=== PATIENT | male | born 1945 | race Caucasian/White ===

== ENCOUNTER 2017-09-14 08:37 | Outpatient (CLI) | payer OTHER, MEDICARE ==
[~2017-09-14 08:37] MED LIST: ASPI-611 PO; CYAN10006 IM; DIAZ5TAB PO; FURO80TA87 PO; MULT-1085 PO; NORCO10T PO; OLME5TAB3 PO; OMEP-84 PO; POTA20TA10 PO; PRED20TA PO; PROP225C9 PO; TAM75C PO; [UNRECOGNIZED DRUG - CODE] TP
== END 2017-09-14 23:59 | disposition home or self-care (01) ==
LOC: 64 CT 08:37
PROVIDERS: ATTEND Family Medicine
DX: J43.9 Emphysema, unspecified (principal); R91.1 Solitary pulmonary nodule
CPT/HCPCS: 71250

== ENCOUNTER 2017-10-19 04:23 | Inpatient (IN) | payer OTHER, MEDICARE ==
[~2017-10-19] VITALS: Ht 180.3 cm; Wt 80.5 kg
[2017-10-19] VITALS (19 sets, daily range): BP systolic 72–137; BP diastolic 47–96
[2017-10-19] MEDS ORDERED: ipratropium/albuterol 3ml nebule NEB ONE (04:35)
[2017-10-19] MEDS ORDERED: normal saline 1000ML IV soln IVB ONE ×2 (04:35→05:25)
[2017-10-19] MEDS ORDERED: methylPREDNISolone sod succ 125mg/2ml vial IV ONE (04:35)
[2017-10-19 05:21] LABS: ABG OXYGEN SATURATION 97.5 % (95-98); FCOHb 0.1 % (0.5-1.5); FLOW 6 L/min; FMetHb 0.3 % (0.3-1.12); FO2Hb 97.1 % (94-100); TOTAL HEMOGLOBIN 13.6 G/dl (14.0-18.0)
[2017-10-19 05:26] LABS: BASOPHILS # (AUTO) 0.1 X10'3 (0-0.2); BASOPHILS % (AUTO) 0.9 % (0-1); EOSINOPHILS # (AUTO) 0.3 X10'3 (0-0.9); EOSINOPHILS % (AUTO) 2.1 % (0-6); HEMATOCRIT 39.4 % (42.0-52.0); HEMOGLOBIN 13.6 g/dl (14.0-17.9); LYMPHOCYTES % (AUTO) 18.6 % (21-51); MEAN CORPUSCULAR HEMOGLOBIN 33.1 PG (27.0-31.0); MEAN CORPUSCULAR HGB CONC 34.6 % (33.0-36.5); MEAN CORPUSCULAR VOLUME 95.5 FL (78-98); MEAN PLATELET VOLUME 7.8 FL (7.4-10.4); MONOCYTES # (AUTO) 1.8 X10'3 (0-0.9); MONOCYTES % (AUTO) 11.1 % (2-12); NEUTROPHILS # (AUTO) 10.7 X10'3 (1.8-7.7); NEUTROPHILS % (AUTO) 67.3 % (42-75); PLATELET COUNT 180 X10'3 (140-440); RED BLOOD COUNT 4.12 X10'6 (4.70-6.10); RED CELL DISTRIBUTION WIDTH 13.9 % (11.5-14.5); WHITE BLOOD COUNT 15.9 X10'3 (4.5-11.0)
[2017-10-19 05:35] LABS: PARTIAL THROMBOPLASTIN TIME 33 SECONDS (22-32); PROTHROMBIN TIME 10.3 SECONDS (9.0-12.0)
[2017-10-19 05:46] LABS: ALANINE AMINOTRANSFERASE 57 U/L (12-78); ALBUMIN 4.1 G/DL (3.4-5.0); ALBUMIN/GLOBULIN RATIO 1.3 (1.1-1.5); ALKALINE PHOSPHATASE 99 IU/L (46-116); ASPARTATE AMINO TRANSFERASE 28 U/L (10-37); BILIRUBIN,TOTAL 0.3 MG/DL (0.1-1.0); BLOOD UREA NITROGEN 96 MG/DL (7-18); BUN/CREATININE RATIO 11.1 (5.4-32.0); CALCIUM 7.7 MG/DL (8.5-10.1); CHLORIDE 99 MMOL/L (99-107); CREATININE 8.63 MG/DL (0.60-1.10); GLUCOSE 96 MG/DL (70-104); MAGNESIUM 1.4 MG/DL (1.5-2.4); PHOSPHORUS 8.2 MG/DL (2.3-4.5); SODIUM 131 MMOL/L (135-145); TOTAL PROTEIN 7.2 G/DL (6.4-8.2); eGFR 6 ML/MIN
[2017-10-19 06:09] LABS: POTASSIUM 2.9 MMOL/L (3.5-5.1)
[2017-10-19 06:10] LABS: ANION GAP 27 (8-16); TOTAL CARBON DIOXIDE < 5 MMOL/L (24-32)
[2017-10-19] MEDS ORDERED: magnesium 2GM in 50ml NS 50 ML IV ONE (06:25)
[2017-10-19] MEDS: potassium 10mEq/100ml NS w/LIDOcaine (10mg/bag) IV SCH ×2 (06:25→07:25)
[2017-10-19] MEDS ORDERED: ipratropium/albuterol 3ml nebule NEB PRN (06:55)
[2017-10-19] MEDS ORDERED: acetaminophen 325mg tablet PO PRN ×4 (06:55→07:25)
[2017-10-19] MEDS ORDERED: magnesium 4gm in 100ml NS 100 ML IV PRN (06:55)
[2017-10-19] MEDS ORDERED: ondansetron/PF 4mg/2ml inj IV PRN ×2 (06:55→07:25)
[2017-10-19] MEDS ORDERED: potassium Cl 20 mEq SR tablet PO PRN ×2 (06:55)
[2017-10-19] MEDS: K, MAG and/or Phos replacement - Verify level? MC SCH ×2 (06:55→08:00)
[2017-10-19] MEDS ORDERED: magnesium Cl slow-release 64mg tablet PO PRN (06:55)
[2017-10-19] MEDS ORDERED: magnesium 2GM in 50ml NS 50 ML IV PRN (06:55)
[2017-10-19 07:09] LABS: CREATINE KINASE 126 U/L (39-308)
[2017-10-19] MEDS ORDERED: sodium bicarbonate (8.4%) 1 mEq/ml syringe IV ONE ×2 (07:10)
[2017-10-19] MEDS ORDERED: vancomycin/NS 1 GM ADD-VANTAGE 250 ML IV ONE (07:10)
[2017-10-19] MEDS ORDERED: aztreonam inj. 2,000 MG in dextrose 5%-water 100 ML IV ONE (07:10)
[2017-10-19] MEDS ORDERED: morphine 4 MG/ML inj SYRINge IV PRN ×2 (07:25)
[2017-10-19] MEDS: POTASSIUM CL IV SCH ×3 (07:26→16:24)
[2017-10-19] MEDS: [UNRECOGNIZED DRUG - OTHER] IV SCH ×3 (07:26→16:24)
[2017-10-19] MEDS: SODIUM BICARBONATE IV SCH ×3 (07:26→16:24)
[2017-10-19] MEDS: pantoprazole 40 MG vial IV SCH (08:00)
[2017-10-19] MEDS ORDERED: pantoprazole 40 MG vial IV SCH (08:00)
[2017-10-19] MEDS: aztreonam inj. 500 MG in normal saline 100ml IV soln 100 ML IV SCH ×2 (08:00→16:00)
[2017-10-19 08:25] LABS: OXYGEN SATURATION (MIXED VEN) 71.4 % (60-80); PO2 MIXED VENOUS (TEMP COR) 34.3 mmHg (35-46)
[2017-10-19 09:06] LABS: PLATELET COUNT 147 X10'3 (140-440)
[2017-10-19] MEDS ORDERED: potassium Cl 20 mEq/100mL bag IV PRN (09:10)
[2017-10-19 09:16] LABS: AMYLASE 273 U/L (25-115)
[2017-10-19] MEDS ORDERED: potassium Cl 20mEq/100mL bag 100 ML IV ONE (09:16)
[2017-10-19 09:27] LABS: LIPASE 4756 U/L (73-393)
[2017-10-19] MEDS: potassium Cl 20mEq/100mL bag 100 ML IV PRN ×6 (09:29→18:01)
[2017-10-19 09:32] LABS: D-DIMER 2.09 MG/L FEU (0-0.50)
[2017-10-19 09:34] LABS: PARTIAL THROMBOPLASTIN TIME 29 SECONDS (22-32); PROTHROMBIN TIME 10.4 SECONDS (9.0-12.0)
[2017-10-19 09:51] LABS: C DIFF ANTIGEN NEGATIVE (NEGATIVE); C DIFF SPECIMEN=DIARRHEA? ACCEPTABLE; C DIFFICILE TOXINS A&B NEGATIVE (Neg)
[2017-10-19] MEDS: metroNIDAZOLE-Flagyl 500mg/NS 100 ML IV SCH ×2 (11:03→19:58)
[2017-10-19 11:09] LABS: CREATINE KINASE 37 U/L (39-308)
[2017-10-19] MEDS ORDERED: propofol 1000mg/100ml bottle 100 ML IV ONE (11:18)
[2017-10-19 12:10] LABS: ABG BASE EXCESS -21.2 mmol/L (-2.0-3.0); ABG HCO3 6.7 mmol/L (22.0-26.0); ABG OXYGEN SATURATION 97.8 % (95-98); ABG PCO2 (T) 21.8 mmHg (35.0-48.0); ABG PH (T) 7.104 (7.350-7.450); ABG PO2 (T) 148.2 mmHg (83-108); ALLEN'S TEST Positive; FCOHb 0.3 % (0.5-1.5); FMetHb 0.3 % (0.3-1.12); FO2Hb 97.2 % (94-100); MINUTE VOLUME 24 L/min; PEEP 5 cm H2O; RESPIRATORY RATE 18 b/min; RESPIRATORY RATE (OBSERVED) 35 b/min; TOTAL HEMOGLOBIN 11.3 G/dl (14.0-18.0)
[2017-10-19 12:43] LABS: SODIUM,URINE RANDOM < 15 MEQ/L; TOTAL PROTEIN,URINE RANDOM 101.5 MG/DL
[2017-10-19 13:06] LABS: OXYGEN SATURATION (MIXED VEN) 83.6 % (60-80); PO2 MIXED VENOUS (TEMP COR) 48.8 mmHg (35-46)
[2017-10-19] MEDS ORDERED: furosemide 10 MG/1 ML 10ml inj IV ONE (13:50)
[2017-10-19 14:12] LABS: ALBUMIN 3.4 G/DL (3.4-5.0); ANION GAP 26 (8-16); BLOOD UREA NITROGEN 92 MG/DL (7-18); BUN/CREATININE RATIO 12.5 (5.4-32.0); CALCIUM 7.2 MG/DL (8.5-10.1); CHLORIDE 105 MMOL/L (99-107); CREATININE 7.37 MG/DL (0.60-1.10); GLUCOSE 141 MG/DL (70-104); SODIUM 138 MMOL/L (135-145); eGFR 7 ML/MIN
[2017-10-19 14:15] LABS: POTASSIUM 2.9 MMOL/L (3.5-5.1)
[2017-10-19 14:16] LABS: TOTAL CARBON DIOXIDE 6.8 MMOL/L (24-32)
[2017-10-19 14:31] LABS: BASOPHILS % (AUTO) 0 % (0-1); EOSINOPHILS % (AUTO) 0 % (0-6); HEMATOCRIT 29.1 % (42.0-52.0); LYMPHOCYTES # (AUTO) 0.2 X10'3 (1.1-4.8); LYMPHOCYTES % (AUTO) 2.2 % (21-51); MEAN CORPUSCULAR HEMOGLOBIN 32.4 PG (27.0-31.0); MEAN CORPUSCULAR HGB CONC 34.5 % (33.0-36.5); MEAN CORPUSCULAR VOLUME 93.9 FL (78-98); MEAN PLATELET VOLUME 7.5 FL (7.4-10.4); MONOCYTES # (AUTO) 0.2 X10'3 (0-0.9); MONOCYTES % (AUTO) 1.9 % (2-12); NEUTROPHILS # (AUTO) 8.9 X10'3 (1.8-7.7); NEUTROPHILS % (AUTO) 95.9 % (42-75); PLATELET COUNT 131 X10'3 (140-440); RED CELL DISTRIBUTION WIDTH 14.3 % (11.5-14.5); WHITE BLOOD COUNT 9.3 X10'3 (4.5-11.0)
[2017-10-19 14:49] LABS: PARTIAL THROMBOPLASTIN TIME 28 SECONDS (22-32); PROTHROMBIN TIME 10.1 SECONDS (9.0-12.0)
[2017-10-19] MEDS: NORepinephrine 8mg/ 250ml NS 250 ML IV SCH (14:55)
[2017-10-19 14:56] LABS: ALANINE AMINOTRANSFERASE 40 U/L (12-78); ALBUMIN 2.7 G/DL (3.4-5.0); ALBUMIN/GLOBULIN RATIO 1.1 (1.1-1.5); ALKALINE PHOSPHATASE 69 IU/L (46-116); ANION GAP 22 (8-16); ASPARTATE AMINO TRANSFERASE 23 U/L (10-37); BILIRUBIN,TOTAL 0.3 MG/DL (0.1-1.0); BLOOD UREA NITROGEN 79 MG/DL (7-18); BUN/CREATININE RATIO 13.6 (5.4-32.0); CALCIUM 6.8 MG/DL (8.5-10.1); CHLORIDE 104 MMOL/L (99-107); CREATININE 5.79 MG/DL (0.60-1.10); GLUCOSE 369 MG/DL (70-104); POTASSIUM 3.7 MMOL/L (3.5-5.1); SODIUM 136 MMOL/L (135-145); TOTAL PROTEIN 5.1 G/DL (6.4-8.2); TROPONIN I < 0.04 NG/ML (0.0-0.05); eGFR 10 ML/MIN
[2017-10-19 15:00] LABS: TOTAL CARBON DIOXIDE 9.7 MMOL/L (24-32)
[2017-10-19] MEDS: hydrocortisone sod succ/PF 100mg/2ml inj. IV SCH ×2 (15:21→19:58)
[2017-10-19 15:32] LABS: MAGNESIUM 3.6 MG/DL (1.5-2.4)
[2017-10-19 15:58] LABS: ANISOCYTOSIS 1+; PLATELET ESTIMATE DECREASED; TOTAL CELLS COUNTED 100
[2017-10-19] MEDS: FENTANYL-0.9 % NACL/PF 100 ML IV PRN ×2 (16:35→23:12)
[2017-10-19 16:45] LABS: ABG BASE EXCESS -15.4 mmol/L (-2.0-3.0); ABG OXYGEN SATURATION 97.8 % (95-98); ABG PCO2 (T) 18.9 mmHg (35.0-48.0); ABG PH (T) 7.296 (7.350-7.450); ABG PO2 (T) 150.2 mmHg (83-108); ALLEN'S TEST Positive; FCOHb 0.2 % (0.5-1.5); FMetHb 0.3 % (0.3-1.12); FO2Hb 97.3 % (94-100); MINUTE VOLUME 17 L/min; PEEP 5 cm H2O; RESPIRATORY RATE 18 b/min; RESPIRATORY RATE (OBSERVED) 19 b/min; TOTAL HEMOGLOBIN 11.3 G/dl (14.0-18.0)
[2017-10-19] MEDS ORDERED: dextrose 50%-water 50ml dispensing syringe IV PRN ×2 (17:00)
[2017-10-19] MEDS ORDERED: dextrose ORAL solution 15 GM/59 ML bottle PO PRN ×2 (17:00)
[2017-10-19] MEDS ORDERED: MESSAGE TO PHARMACY PO ONE (17:00)
[2017-10-19] MEDS ORDERED: glucagon, human recombinant 1mg kit SUBCUT PRN (17:00)
[2017-10-19] MEDS: propofol 1000mg/100ml bottle 100 ML IV PRN (18:08)
[2017-10-19] MEDS: ipratropium/albuterol 3ml nebule NEB SCH ×2 (19:16→23:42)
[2017-10-19 19:45] LABS: OXYGEN SATURATION (MIXED VEN) 90.1 % (60-80); PO2 MIXED VENOUS (TEMP COR) 51.6 mmHg (35-46)
[2017-10-19 19:45] LABS: BASOPHILS % (AUTO) 0 % (0-1); EOSINOPHILS # (AUTO) 0.2 X10'3 (0-0.9); EOSINOPHILS % (AUTO) 1.5 % (0-6); HEMATOCRIT 32.3 % (42.0-52.0); LYMPHOCYTES # (AUTO) 0.2 X10'3 (1.1-4.8); LYMPHOCYTES % (AUTO) 2.1 % (21-51); MEAN CORPUSCULAR HEMOGLOBIN 32.5 PG (27.0-31.0); MEAN CORPUSCULAR HGB CONC 34.1 % (33.0-36.5); MEAN CORPUSCULAR VOLUME 95.3 FL (78-98); MEAN PLATELET VOLUME 7.4 FL (7.4-10.4); MONOCYTES # (AUTO) 0.6 X10'3 (0-0.9); MONOCYTES % (AUTO) 5.2 % (2-12); NEUTROPHILS % (AUTO) 91.2 % (42-75); PLATELET COUNT 160 X10'3 (140-440); RED BLOOD COUNT 3.39 X10'6 (4.70-6.10); RED CELL DISTRIBUTION WIDTH 14.1 % (11.5-14.5)
[2017-10-19 19:58] LABS: PARTIAL THROMBOPLASTIN TIME 27 SECONDS (22-32); PROTHROMBIN TIME 9.9 SECONDS (9.0-12.0)
[2017-10-19 20:03] LABS: ALANINE AMINOTRANSFERASE 42 U/L (12-78); ALBUMIN/GLOBULIN RATIO 1.2 (1.1-1.5); ALKALINE PHOSPHATASE 74 IU/L (46-116); ANION GAP 20 (8-16); ASPARTATE AMINO TRANSFERASE 21 U/L (10-37); BILIRUBIN,TOTAL 0.4 MG/DL (0.1-1.0); BLOOD UREA NITROGEN 72 MG/DL (7-18); BUN/CREATININE RATIO 15.4 (5.4-32.0); CALCIUM 7.1 MG/DL (8.5-10.1); CHLORIDE 103 MMOL/L (99-107); CREATININE 4.67 MG/DL (0.60-1.10); MAGNESIUM 2.8 MG/DL (1.5-2.4); SODIUM 138 MMOL/L (135-145); TOTAL CARBON DIOXIDE 15.2 MMOL/L (24-32); TOTAL PROTEIN 5.6 G/DL (6.4-8.2); TROPONIN I < 0.04 NG/ML (0.0-0.05); eGFR 12 ML/MIN
[2017-10-19 20:14] LABS: GLUCOSE 457 MG/DL (70-104)
[2017-10-19] MEDS: insulin Lispro (HumaLOG) vial - multi-dose SQ SCH (20:35)
[2017-10-19] MEDS: insulin glargine (Lantus) pen - multi-dose SQ SCH (20:37)
[2017-10-19] MEDS: potassium Cl 40MEQ/250ML bag 250 ML IV PRN ×2 (20:52→22:57)
[2017-10-20] VITALS (24 sets, daily range): BP systolic 97–136; BP diastolic 50–72
[2017-10-20] MEDS: aztreonam inj. 500 MG in normal saline 100ml IV soln 100 ML IV SCH ×3 (00:11→16:00)
[2017-10-20] MEDS: NORepinephrine 8mg/ 250ml NS 250 ML IV SCH ×2 (00:12→11:45)
[2017-10-20 00:25] LABS: ABG BASE EXCESS -4.6 mmol/L (-2.0-3.0); ABG HCO3 17.7 mmol/L (22.0-26.0); ABG OXYGEN SATURATION 97.2 % (95-98); ABG PH (T) 7.483 (7.350-7.450); ABG PO2 (T) 120.9 mmHg (83-108); FCOHb 0.2 % (0.5-1.5); FMetHb 0.3 % (0.3-1.12); FO2Hb 96.7 % (94-100); MINUTE VOLUME 14 L/min; PATIENT TEMPERATURE 36.3; PEEP 5 cm H2O; RESPIRATORY RATE 18 b/min; RESPIRATORY RATE (OBSERVED) 20 b/min; TIDAL VOLUME 500 mL; TOTAL HEMOGLOBIN 11.1 G/dl (14.0-18.0)
[2017-10-20] MEDS: hydrocortisone sod succ/PF 100mg/2ml inj. IV SCH ×4 (02:02→20:31)
[2017-10-20 02:23] LABS: BASOPHILS % (AUTO) 0.2 % (0-1); EOSINOPHILS # (AUTO) 0.1 X10'3 (0-0.9); EOSINOPHILS % (AUTO) 0.7 % (0-6); HEMATOCRIT 29.7 % (42.0-52.0); HEMOGLOBIN 10.4 g/dl (14.0-17.9); LYMPHOCYTES # (AUTO) 0.2 X10'3 (1.1-4.8); LYMPHOCYTES % (AUTO) 1.5 % (21-51); MEAN CORPUSCULAR VOLUME 94.1 FL (78-98); MEAN PLATELET VOLUME 7.7 FL (7.4-10.4); MONOCYTES # (AUTO) 1.4 X10'3 (0-0.9); MONOCYTES % (AUTO) 11.3 % (2-12); NEUTROPHILS # (AUTO) 10.7 X10'3 (1.8-7.7); NEUTROPHILS % (AUTO) 86.3 % (42-75); PLATELET COUNT 162 X10'3 (140-440); RED BLOOD COUNT 3.15 X10'6 (4.70-6.10); RED CELL DISTRIBUTION WIDTH 14.1 % (11.5-14.5); WHITE BLOOD COUNT 12.4 X10'3 (4.5-11.0)
[2017-10-20] MEDS: insulin Lispro (HumaLOG) vial - multi-dose SQ SCH ×3 (02:24→20:36)
[2017-10-20 02:28] LABS: PARTIAL THROMBOPLASTIN TIME 26 SECONDS (22-32); PROTHROMBIN TIME 10.8 SECONDS (9.0-12.0)
[2017-10-20 02:40] LABS: ALANINE AMINOTRANSFERASE 39 U/L (12-78); ALBUMIN 2.7 G/DL (3.4-5.0); ALKALINE PHOSPHATASE 68 IU/L (46-116); ANION GAP 16 (8-16); ASPARTATE AMINO TRANSFERASE 20 U/L (10-37); BILIRUBIN,TOTAL 0.3 MG/DL (0.1-1.0); BLOOD UREA NITROGEN 60 MG/DL (7-18); BUN/CREATININE RATIO 16.3 (5.4-32.0); CHLORIDE 108 MMOL/L (99-107); CREATININE 3.69 MG/DL (0.60-1.10); GLUCOSE 383 MG/DL (70-104); SODIUM 145 MMOL/L (135-145); TOTAL CARBON DIOXIDE 20.8 MMOL/L (24-32); TOTAL PROTEIN 5.4 G/DL (6.4-8.2); TROPONIN I 0.04 NG/ML (0.0-0.05); eGFR 16 ML/MIN
[2017-10-20] MEDS: VANCOMYCIN LEVEL IV SCH (03:00)
[2017-10-20 03:01] LABS: POTASSIUM 2.9 MMOL/L (3.5-5.1)
[2017-10-20] MEDS: ipratropium/albuterol 3ml nebule NEB SCH ×6 (03:01→23:14)
[2017-10-20] MEDS: SODIUM BICARBONATE IV SCH ×3 (03:17→23:10)
[2017-10-20] MEDS: [UNRECOGNIZED DRUG - OTHER] IV SCH ×3 (03:17→23:10)
[2017-10-20] MEDS: POTASSIUM CL IV SCH ×3 (03:17→23:10)
[2017-10-20] MEDS: propofol 1000mg/100ml bottle 100 ML IV PRN ×2 (03:18→07:38)
[2017-10-20 03:20] LABS: OXYGEN SATURATION (MIXED VEN) 85.4 % (60-80); PO2 MIXED VENOUS (TEMP COR) 43.5 mmHg (35-46)
[2017-10-20 03:27] LABS: BURR CELLS 2+; ELLIPTOCYTES 2+; PLATELET ESTIMATE NORMAL; TOTAL CELLS COUNTED 100
[2017-10-20 03:31] LABS: ABG BASE EXCESS -3.4 mmol/L (-2.0-3.0); ABG HCO3 19.7 mmol/L (22.0-26.0); ABG OXYGEN SATURATION 97.2 % (95-98); ABG PCO2 (T) 28.5 mmHg (35.0-48.0); ABG PH (T) 7.456 (7.350-7.450); ABG PO2 (T) 112.2 mmHg (83-108); FCOHb 0.2 % (0.5-1.5); FMetHb 0.3 % (0.3-1.12); FO2Hb 96.7 % (94-100); MINUTE VOLUME 10 L/min; PATIENT TEMPERATURE 36.5; PEEP 5 cm H2O; RESPIRATORY RATE 14 b/min; RESPIRATORY RATE (OBSERVED) 16 b/min; TIDAL VOLUME 500 mL; TOTAL HEMOGLOBIN 10.9 G/dl (14.0-18.0)
[2017-10-20 03:31] LABS: ELLIPTOCYTES 1+; LARGE PLATELETS FEW; PLATELET ESTIMATE NORMAL; TOTAL CELLS COUNTED 100
[2017-10-20] MEDS ORDERED: potassium Cl 40MEQ/250ML bag 500 ML IV ONE (03:41)
[2017-10-20] MEDS: potassium Cl 40MEQ/250ML bag 250 ML IV PRN ×2 (03:57→06:10)
[2017-10-20] MEDS: FENTANYL-0.9 % NACL/PF 100 ML IV PRN ×4 (05:30→22:27)
[2017-10-20] MEDS: midazolam 100mg in NS 100ml 100 ML IV PRN (06:54)
[2017-10-20] MEDS ORDERED: vancomycin/NS 1 GM ADD-VANTAGE 250 ML IV PRN (07:00)
[2017-10-20] MEDS: pantoprazole 40 MG vial IV SCH (07:12)
[2017-10-20] MEDS: metroNIDAZOLE-Flagyl 500mg/NS 100 ML IV SCH ×2 (07:13→20:31)
[2017-10-20 08:14] LABS: BASOPHILS % (AUTO) 0 % (0-1); EOSINOPHILS # (AUTO) 0.2 X10'3 (0-0.9); EOSINOPHILS % (AUTO) 1.7 % (0-6); HEMATOCRIT 27.9 % (42.0-52.0); HEMOGLOBIN 9.7 g/dl (14.0-17.9); LYMPHOCYTES # (AUTO) 0.2 X10'3 (1.1-4.8); MEAN CORPUSCULAR VOLUME 94.4 FL (78-98); MEAN PLATELET VOLUME 7.4 FL (7.4-10.4); MONOCYTES # (AUTO) 1.3 X10'3 (0-0.9); MONOCYTES % (AUTO) 10.7 % (2-12); NEUTROPHILS # (AUTO) 10.1 X10'3 (1.8-7.7); NEUTROPHILS % (AUTO) 85.6 % (42-75); PLATELET COUNT 153 X10'3 (140-440); RED BLOOD COUNT 2.95 X10'6 (4.70-6.10); RED CELL DISTRIBUTION WIDTH 14.1 % (11.5-14.5); WHITE BLOOD COUNT 11.8 X10'3 (4.5-11.0)
[2017-10-20 08:23] LABS: INR 1.1 INR; PARTIAL THROMBOPLASTIN TIME 25 SECONDS (22-32); PROTHROMBIN TIME 11.1 SECONDS (9.0-12.0)
[2017-10-20 08:31] LABS: ALANINE AMINOTRANSFERASE 28 U/L (12-78); ALBUMIN 2.6 G/DL (3.4-5.0); ALKALINE PHOSPHATASE 64 IU/L (46-116); ANION GAP 12 (8-16); ASPARTATE AMINO TRANSFERASE 22 U/L (10-37); BILIRUBIN,TOTAL 0.3 MG/DL (0.1-1.0); BLOOD UREA NITROGEN 49 MG/DL (7-18); BUN/CREATININE RATIO 17.6 (5.4-32.0); CALCIUM 7.1 MG/DL (8.5-10.1); CHLORIDE 112 MMOL/L (99-107); CREATININE 2.78 MG/DL (0.60-1.10); GLUCOSE 283 MG/DL (70-104); POTASSIUM 3.4 MMOL/L (3.5-5.1); SODIUM 149 MMOL/L (135-145); TOTAL CARBON DIOXIDE 24.9 MMOL/L (24-32); TOTAL PROTEIN 5.2 G/DL (6.4-8.2); TROPONIN I 0.05 NG/ML (0.0-0.05); eGFR 23 ML/MIN
[2017-10-20] MEDS: K, MAG and/or Phos replacement - Verify level? MC SCH (08:35)
[2017-10-20 08:55] LABS: TOTAL CELLS COUNTED 100
[2017-10-20 08:58] LABS: PLATELET ESTIMATE NORMAL; POIKILOCYTOSIS 1+
[2017-10-20 09:00] LABS: ELLIPTOCYTES 1+
[2017-10-20] MEDS: potassium Cl 40MEQ/250ML bag 250 ML IV SCH (09:50)
[2017-10-20] MEDS: sodium chloride 0.45% 1,000 ML IV SCH ×3 (09:50→20:32)
[2017-10-20] MEDS ORDERED: dexmedetomidin/NS 400mcg/100ml 100 ML IV SCH (10:00)
[2017-10-20] MEDS ORDERED: vancomycin/NS 500MG ADD-VANT 100 ML IV PRN (10:05)
[2017-10-20 10:31] LABS: OXYGEN SATURATION (MIXED VEN) 84.7 % (60-80); PO2 MIXED VENOUS (TEMP COR) 45.7 mmHg (35-46)
[2017-10-20 11:03] LABS: MAGNESIUM 2.3 MG/DL (1.5-2.4); VANCOMYCIN,RANDOM 10.2 UG/ML
[2017-10-20 11:09] LABS: PHOSPHORUS 0.7 MG/DL (2.3-4.5)
[2017-10-20] MEDS ORDERED: sodium phosphate inj. 30 MMOL in dextrose 5%-water 250 ML IV PRN (11:15)
[2017-10-20] MEDS ORDERED: sodium phosphate inj. 15 MMOL in dextrose 5%-water 150 ML IV PRN (11:15)
[2017-10-20] MEDS ORDERED: vancomycin inj 500 MG in dextrose 5%-water 100 ML IV PRN (11:20)
[2017-10-20] MEDS: dexmedetomidin/NS 400mcg/100ml 100 ML IV SCH (11:45)
[2017-10-20] MEDS ORDERED: vancomycin/NS 1 GM ADD-VANTAGE 250 ML IV ONE (11:50)
[2017-10-20 14:10] LABS: BASOPHILS % (AUTO) 0.2 % (0-1); EOSINOPHILS % (AUTO) 0 % (0-6); HEMATOCRIT 27.5 % (42.0-52.0); HEMOGLOBIN 9.5 g/dl (14.0-17.9); LYMPHOCYTES # (AUTO) 0.4 X10'3 (1.1-4.8); LYMPHOCYTES % (AUTO) 2.7 % (21-51); MEAN CORPUSCULAR HEMOGLOBIN 32.9 PG (27.0-31.0); MEAN CORPUSCULAR HGB CONC 34.7 % (33.0-36.5); MEAN PLATELET VOLUME 7.3 FL (7.4-10.4); MONOCYTES # (AUTO) 1.5 X10'3 (0-0.9); MONOCYTES % (AUTO) 10.7 % (2-12); NEUTROPHILS # (AUTO) 11.8 X10'3 (1.8-7.7); NEUTROPHILS % (AUTO) 86.4 % (42-75); PLATELET COUNT 157 X10'3 (140-440); RED CELL DISTRIBUTION WIDTH 14.2 % (11.5-14.5); WHITE BLOOD COUNT 13.6 X10'3 (4.5-11.0)
[2017-10-20 14:27] LABS: INR 1.1 INR; PARTIAL THROMBOPLASTIN TIME 24 SECONDS (22-32); PROTHROMBIN TIME 10.9 SECONDS (9.0-12.0)
[2017-10-20 14:33] LABS: TOTAL CELLS COUNTED 100
[2017-10-20 14:34] LABS: ALANINE AMINOTRANSFERASE 33 U/L (12-78); ALBUMIN 2.6 G/DL (3.4-5.0); ALKALINE PHOSPHATASE 58 IU/L (46-116); ANION GAP 10 (8-16); ASPARTATE AMINO TRANSFERASE 17 U/L (10-37); BILIRUBIN,TOTAL 0.3 MG/DL (0.1-1.0); BLOOD UREA NITROGEN 44 MG/DL (7-18); BUN/CREATININE RATIO 21.4 (5.4-32.0); CALCIUM 7.1 MG/DL (8.5-10.1); CHLORIDE 115 MMOL/L (99-107); CREATININE 2.06 MG/DL (0.60-1.10); GLUCOSE 152 MG/DL (70-104); POTASSIUM 3.6 MMOL/L (3.5-5.1); SODIUM 151 MMOL/L (135-145); TOTAL PROTEIN 5.1 G/DL (6.4-8.2); TROPONIN I 0.05 NG/ML (0.0-0.05); eGFR 32 ML/MIN
[2017-10-20 14:36] LABS: ELLIPTOCYTES FEW; PLATELET ESTIMATE NORMAL; POIKILOCYTOSIS 1+
[2017-10-20 14:46] LABS: OXYGEN SATURATION (MIXED VEN) 80.6 % (60-80)
[2017-10-20] MEDS ORDERED: potassium Cl 20 mEq/100mL bag IV ONE (15:35)
[2017-10-20] MEDS ORDERED: potassium Cl 20mEq/100mL bag 100 ML IV ONE (15:45)
[2017-10-20 17:18] LABS: SODIUM,URINE RANDOM < 15 MEQ/L; TOTAL PROTEIN,URINE RANDOM 147.3 MG/DL
[2017-10-20 18:32] LABS: MAGNESIUM 1.9 MG/DL (1.5-2.4)
[2017-10-20 20:26] LABS: OXYGEN SATURATION (MIXED VEN) 84.1 % (60-80); PO2 MIXED VENOUS (TEMP COR) 46.5 mmHg (35-46)
[2017-10-20 20:32] LABS: BASOPHILS % (AUTO) 0 % (0-1); EOSINOPHILS % (AUTO) 0 % (0-6); HEMATOCRIT 27.4 % (42.0-52.0); HEMOGLOBIN 9.5 g/dl (14.0-17.9); LYMPHOCYTES # (AUTO) 0.7 X10'3 (1.1-4.8); LYMPHOCYTES % (AUTO) 5.4 % (21-51); MEAN CORPUSCULAR HEMOGLOBIN 32.8 PG (27.0-31.0); MEAN CORPUSCULAR HGB CONC 34.6 % (33.0-36.5); MEAN CORPUSCULAR VOLUME 94.9 FL (78-98); MEAN PLATELET VOLUME 7.3 FL (7.4-10.4); MONOCYTES # (AUTO) 1.1 X10'3 (0-0.9); MONOCYTES % (AUTO) 8.8 % (2-12); NEUTROPHILS % (AUTO) 85.8 % (42-75); PLATELET COUNT 157 X10'3 (140-440); RED BLOOD COUNT 2.89 X10'6 (4.70-6.10); RED CELL DISTRIBUTION WIDTH 14.6 % (11.5-14.5); WHITE BLOOD COUNT 12.9 X10'3 (4.5-11.0)
[2017-10-20] MEDS: insulin glargine (Lantus) pen - multi-dose SQ SCH (20:37)
[2017-10-20 20:43] LABS: PARTIAL THROMBOPLASTIN TIME 23 SECONDS (22-32); PROTHROMBIN TIME 10.5 SECONDS (9.0-12.0)
[2017-10-20 20:48] LABS: ALANINE AMINOTRANSFERASE 35 U/L (12-78); ALBUMIN 2.6 G/DL (3.4-5.0); ALKALINE PHOSPHATASE 62 IU/L (46-116); ANION GAP 12 (8-16); ASPARTATE AMINO TRANSFERASE 20 U/L (10-37); BILIRUBIN,TOTAL 0.3 MG/DL (0.1-1.0); BLOOD UREA NITROGEN 37 MG/DL (7-18); BUN/CREATININE RATIO 19.7 (5.4-32.0); CALCIUM 6.9 MG/DL (8.5-10.1); CHLORIDE 116 MMOL/L (99-107); CREATININE 1.88 MG/DL (0.60-1.10); GLUCOSE 163 MG/DL (70-104); MAGNESIUM 1.8 MG/DL (1.5-2.4); PHOSPHORUS 3.2 MG/DL (2.3-4.5); SODIUM 152 MMOL/L (135-145); TOTAL CARBON DIOXIDE 24.2 MMOL/L (24-32); TOTAL PROTEIN 5.2 G/DL (6.4-8.2); TROPONIN I < 0.04 NG/ML (0.0-0.05); eGFR 35 ML/MIN
[2017-10-20 23:32] LABS: TOTAL CELLS COUNTED 100
[2017-10-20 23:35] LABS: PLATELET ESTIMATE NORMAL
[2017-10-20 23:36] LABS: ELLIPTOCYTES FEW
[2017-10-21] VITALS (24 sets, daily range): BP systolic 82–174; BP diastolic 57–93
[2017-10-21] MEDS: midazolam 100mg in NS 100ml 100 ML IV PRN (00:28)
[2017-10-21] MEDS: aztreonam inj. 500 MG in normal saline 100ml IV soln 100 ML IV SCH ×2 (00:28→08:14)
[2017-10-21] MEDS: hydrocortisone sod succ/PF 100mg/2ml inj. IV SCH ×4 (02:31→21:49)
[2017-10-21] MEDS: insulin Lispro (HumaLOG) vial - multi-dose SQ SCH ×3 (02:33→14:28)
[2017-10-21 02:36] LABS: BASOPHILS % (AUTO) 0.1 % (0-1); EOSINOPHILS # (AUTO) 0.2 X10'3 (0-0.9); EOSINOPHILS % (AUTO) 1.3 % (0-6); HEMATOCRIT 28.1 % (42.0-52.0); HEMOGLOBIN 9.6 g/dl (14.0-17.9); LYMPHOCYTES # (AUTO) 0.5 X10'3 (1.1-4.8); LYMPHOCYTES % (AUTO) 3.5 % (21-51); MEAN CORPUSCULAR HEMOGLOBIN 32.9 PG (27.0-31.0); MEAN CORPUSCULAR HGB CONC 34.2 % (33.0-36.5); MEAN CORPUSCULAR VOLUME 96.1 FL (78-98); MEAN PLATELET VOLUME 7.1 FL (7.4-10.4); MONOCYTES # (AUTO) 1.2 X10'3 (0-0.9); MONOCYTES % (AUTO) 8.7 % (2-12); NEUTROPHILS # (AUTO) 11.6 X10'3 (1.8-7.7); PLATELET COUNT 168 X10'3 (140-440); RED BLOOD COUNT 2.92 X10'6 (4.70-6.10); RED CELL DISTRIBUTION WIDTH 14.6 % (11.5-14.5); WHITE BLOOD COUNT 13.4 X10'3 (4.5-11.0)
[2017-10-21] MEDS: FENTANYL-0.9 % NACL/PF 100 ML IV PRN ×3 (02:40→16:22)
[2017-10-21] MEDS: dexmedetomidin/NS 400mcg/100ml 100 ML IV SCH ×2 (02:40→17:46)
[2017-10-21 02:48] LABS: PARTIAL THROMBOPLASTIN TIME 23 SECONDS (22-32); PROTHROMBIN TIME 10.5 SECONDS (9.0-12.0)
[2017-10-21 02:55] LABS: ALANINE AMINOTRANSFERASE 35 U/L (12-78); ALBUMIN 2.7 G/DL (3.4-5.0); ALKALINE PHOSPHATASE 62 IU/L (46-116); ANION GAP 13 (8-16); ASPARTATE AMINO TRANSFERASE 20 U/L (10-37); BILIRUBIN,TOTAL 0.3 MG/DL (0.1-1.0); BLOOD UREA NITROGEN 34 MG/DL (7-18); BUN/CREATININE RATIO 19.9 (5.4-32.0); CHLORIDE 115 MMOL/L (99-107); CREATININE 1.71 MG/DL (0.60-1.10); GLUCOSE 152 MG/DL (70-104); POTASSIUM 4.2 MMOL/L (3.5-5.1); SODIUM 152 MMOL/L (135-145); TOTAL CARBON DIOXIDE 24.1 MMOL/L (24-32); TOTAL PROTEIN 5.5 G/DL (6.4-8.2); TROPONIN I < 0.04 NG/ML (0.0-0.05); eGFR 40 ML/MIN
[2017-10-21] MEDS: VANCOMYCIN LEVEL IV SCH (03:00)
[2017-10-21] MEDS: ipratropium/albuterol 3ml nebule NEB SCH ×6 (03:30→23:16)
[2017-10-21 04:15] LABS: ABG BASE EXCESS -2.6 mmol/L (-2.0-3.0); ABG HCO3 22.4 mmol/L (22.0-26.0); ABG OXYGEN SATURATION 94.7 % (95-98); ABG PCO2 (T) 38.8 mmHg (35.0-48.0); ABG PH (T) 7.378 (7.350-7.450); ABG PO2 (T) 80.2 mmHg (83-108); FCOHb 0.3 % (0.5-1.5); FMetHb 0.3 % (0.3-1.12); FO2Hb 94.1 % (94-100); MINUTE VOLUME 8 L/min; PATIENT TEMPERATURE 36.8; PEEP 5 cm H2O; RESPIRATORY RATE 10 b/min; RESPIRATORY RATE (OBSERVED) 11 b/min; TIDAL VOLUME 450 mL
[2017-10-21 04:26] LABS: OXYGEN SATURATION (MIXED VEN) 78.6 % (60-80); PO2 MIXED VENOUS (TEMP COR) 39.6 mmHg (35-46)
[2017-10-21] MEDS: POTASSIUM CL IV SCH (04:55)
[2017-10-21] MEDS: [UNRECOGNIZED DRUG - OTHER] IV SCH (04:55)
[2017-10-21] MEDS: SODIUM BICARBONATE IV SCH (04:55)
[2017-10-21 06:59] LABS: ANISOCYTOSIS 1+; PLATELET ESTIMATE NORMAL; TOTAL CELLS COUNTED 100
[2017-10-21 07:00] LABS: ELLIPTOCYTES FEW; NEUTROPHILS % (AUTO) 86.4 % (42-75)
[2017-10-21] MEDS: K, MAG and/or Phos replacement - Verify level? MC SCH (08:00)
[2017-10-21] MEDS: pantoprazole 40 MG vial IV SCH (08:14)
[2017-10-21] MEDS: enoxaparin 30mg/0.3ml syringe SUBCUT SCH (08:15)
[2017-10-21] MEDS: sodium chloride 0.45% 1,000 ML IV SCH (08:16)
[2017-10-21 08:20] LABS: BASOPHILS % (AUTO) 0.2 % (0-1); EOSINOPHILS % (AUTO) 0 % (0-6); HEMOGLOBIN 9.6 g/dl (14.0-17.9); LYMPHOCYTES # (AUTO) 0.5 X10'3 (1.1-4.8); LYMPHOCYTES % (AUTO) 3.8 % (21-51); MEAN CORPUSCULAR HEMOGLOBIN 32.6 PG (27.0-31.0); MEAN CORPUSCULAR HGB CONC 34.3 % (33.0-36.5); MEAN PLATELET VOLUME 7.5 FL (7.4-10.4); MONOCYTES # (AUTO) 0.9 X10'3 (0-0.9); MONOCYTES % (AUTO) 6.8 % (2-12); NEUTROPHILS # (AUTO) 11.4 X10'3 (1.8-7.7); NEUTROPHILS % (AUTO) 89.2 % (42-75); PLATELET COUNT 161 X10'3 (140-440); RED BLOOD COUNT 2.95 X10'6 (4.70-6.10); RED CELL DISTRIBUTION WIDTH 14.2 % (11.5-14.5); WHITE BLOOD COUNT 12.8 X10'3 (4.5-11.0)
[2017-10-21 08:33] LABS: ANISOCYTOSIS 1+; ELLIPTOCYTES FEW; PLATELET ESTIMATE NORMAL; TOTAL CELLS COUNTED 100
[2017-10-21 08:38] LABS: ALANINE AMINOTRANSFERASE 35 U/L (12-78); ALBUMIN 2.7 G/DL (3.4-5.0); ALKALINE PHOSPHATASE 62 IU/L (46-116); ANION GAP 11 (8-16); ASPARTATE AMINO TRANSFERASE 19 U/L (10-37); BILIRUBIN,TOTAL 0.3 MG/DL (0.1-1.0); BLOOD UREA NITROGEN 35 MG/DL (7-18); BUN/CREATININE RATIO 21.6 (5.4-32.0); CHLORIDE 114 MMOL/L (99-107); CREATININE 1.62 MG/DL (0.60-1.10); GLUCOSE 145 MG/DL (70-104); MAGNESIUM 1.9 MG/DL (1.5-2.4); PHOSPHORUS 3.7 MG/DL (2.3-4.5); POTASSIUM 4.6 MMOL/L (3.5-5.1); SODIUM 149 MMOL/L (135-145); TOTAL CARBON DIOXIDE 24.3 MMOL/L (24-32); TOTAL PROTEIN 5.5 G/DL (6.4-8.2); TROPONIN I < 0.04 NG/ML (0.0-0.05); eGFR 42 ML/MIN
[2017-10-21 08:41] LABS: PARTIAL THROMBOPLASTIN TIME 23 SECONDS (22-32); PROTHROMBIN TIME 10.5 SECONDS (9.0-12.0)
[2017-10-21 09:32] LABS: VANCOMYCIN,RANDOM 13.7 UG/ML
[2017-10-21] MEDS ORDERED: vancomycin inj 500 MG in dextrose 5%-water 100 ML IV ONE ×2 (09:45→12:45)
[2017-10-21] MEDS ORDERED: dextrose 5%-normal saline 1,000 ML IV SCH (11:20)
[2017-10-21] MEDS: methylnaltrexone br 12mg/0.6ml inj***SubQ only SQ SCH (12:14)
[2017-10-21] MEDS: diatr meglu/diatrizoate 30ml oral sol.-(3 dose) bottle PO SCH ×3 (12:14→21:47)
[2017-10-21] MEDS ORDERED: vancomycin inj 500 MG in dextrose 5%-water 100 ML IV PRN (12:45)
[2017-10-21] MEDS: NORepinephrine 8mg/ 250ml NS 250 ML IV SCH (15:24)
[2017-10-21] MEDS: ceFAZolin 1GM/D5W- ADD-VANTAGE 50 ML IV SCH (16:58)
[2017-10-21] MEDS: dextrose 5%-water 1,000 ML IV SCH (17:03)
[2017-10-21] MEDS ORDERED: CISatracurium **Bolus** 2 mg/ml inj IV ONE (18:20)
[2017-10-21] MEDS ORDERED: midazolam 2 mg/2 ml injection IV ONE (18:35)
[2017-10-21] MEDS ORDERED: MIDAZolam 5mg/ml 2ml vial ONE (19:57)
[2017-10-21] MEDS ORDERED: mineral oil/petrolatum ophthal oint EACHEYE PRN (21:35)
[2017-10-21] MEDS: insulin glargine (Lantus) pen - multi-dose SQ SCH (21:54)
[2017-10-22] VITALS (24 sets, daily range): BP systolic 107–152; BP diastolic 65–88
[2017-10-22] MEDS: midazolam 100mg in NS 100ml 100 ML IV PRN (00:10)
[2017-10-22] MEDS: ceFAZolin 1GM/D5W- ADD-VANTAGE 50 ML IV SCH ×3 (00:10→17:23)
[2017-10-22] MEDS: dextrose 5%-water 1,000 ML IV SCH ×3 (00:11→17:26)
[2017-10-22] MEDS: hydrocortisone sod succ/PF 100mg/2ml inj. IV SCH ×4 (02:19→20:06)
[2017-10-22] MEDS: ipratropium/albuterol 3ml nebule NEB SCH ×6 (02:20→23:49)
[2017-10-22] MEDS ORDERED: insulin regular, human vial - multi-dose SQ SCH (02:25)
[2017-10-22] MEDS: FENTANYL-0.9 % NACL/PF 100 ML IV PRN (02:26)
[2017-10-22 02:35] LABS: INR 1.1 INR; PARTIAL THROMBOPLASTIN TIME 24 SECONDS (22-32); PROTHROMBIN TIME 10.9 SECONDS (9.0-12.0)
[2017-10-22 02:41] LABS: BASOPHILS % (AUTO) 0 % (0-1); EOSINOPHILS # (AUTO) 0.1 X10'3 (0-0.9); EOSINOPHILS % (AUTO) 1.3 % (0-6); HEMATOCRIT 26.1 % (42.0-52.0); HEMOGLOBIN 8.9 g/dl (14.0-17.9); LYMPHOCYTES # (AUTO) 0.4 X10'3 (1.1-4.8); MEAN CORPUSCULAR HEMOGLOBIN 32.9 PG (27.0-31.0); MEAN CORPUSCULAR HGB CONC 34.2 % (33.0-36.5); MEAN CORPUSCULAR VOLUME 96.1 FL (78-98); MEAN PLATELET VOLUME 7.7 FL (7.4-10.4); MONOCYTES # (AUTO) 0.5 X10'3 (0-0.9); MONOCYTES % (AUTO) 5.7 % (2-12); NEUTROPHILS # (AUTO) 7.6 X10'3 (1.8-7.7); PLATELET COUNT 139 X10'3 (140-440); RED BLOOD COUNT 2.72 X10'6 (4.70-6.10); RED CELL DISTRIBUTION WIDTH 14.4 % (11.5-14.5); WHITE BLOOD COUNT 8.7 X10'3 (4.5-11.0)
[2017-10-22 02:43] LABS: ALANINE AMINOTRANSFERASE 30 U/L (12-78); ALBUMIN 2.6 G/DL (3.4-5.0); ALKALINE PHOSPHATASE 53 IU/L (46-116); ANION GAP 8 (8-16); ASPARTATE AMINO TRANSFERASE 19 U/L (10-37); BILIRUBIN,TOTAL 0.3 MG/DL (0.1-1.0); BLOOD UREA NITROGEN 29 MG/DL (7-18); CALCIUM 7.4 MG/DL (8.5-10.1); CHLORIDE 112 MMOL/L (99-107); CREATININE 1.26 MG/DL (0.60-1.10); GLUCOSE 172 MG/DL (70-104); PHOSPHORUS 3.6 MG/DL (2.3-4.5); POTASSIUM 3.6 MMOL/L (3.5-5.1); PREALBUMIN 27.3 MG/DL (19-36); SODIUM 146 MMOL/L (135-145); TOTAL CARBON DIOXIDE 26.1 MMOL/L (24-32); TOTAL PROTEIN 5.1 G/DL (6.4-8.2); VANCOMYCIN,RANDOM 13.6 UG/ML; eGFR 56 ML/MIN
[2017-10-22] MEDS: VANCOMYCIN LEVEL IV SCH (03:00)
[2017-10-22 04:21] LABS: ABG BASE EXCESS -0.5 mmol/L (-2.0-3.0); ABG HCO3 24.1 mmol/L (22.0-26.0); ABG OXYGEN SATURATION 94.1 % (95-98); ABG PCO2 (T) 38.3 mmHg (35.0-48.0); ABG PH (T) 7.415 (7.350-7.450); ABG PO2 (T) 72.2 mmHg (83-108); FCOHb 0.3 % (0.5-1.5); FMetHb 0.3 % (0.3-1.12); FO2Hb 93.5 % (94-100); MINUTE VOLUME 6 L/min; PATIENT TEMPERATURE 36.4; PEEP 5 cm H2O; RESPIRATORY RATE 10 b/min; RESPIRATORY RATE (OBSERVED) 10 b/min; TIDAL VOLUME 450 mL; TOTAL HEMOGLOBIN 9.4 G/dl (14.0-18.0)
[2017-10-22] MEDS: dexmedetomidin/NS 400mcg/100ml 100 ML IV SCH (05:05)
[2017-10-22 05:50] LABS: ABG PCO2 (T) < 10.0 mmHg (35.0-48.0)
[2017-10-22 05:51] LABS: ABG PO2 (T) 141.6 mmHg (83-108)
[2017-10-22] MEDS: pantoprazole 40 MG vial IV SCH (07:48)
[2017-10-22] MEDS: enoxaparin 30mg/0.3ml syringe SUBCUT SCH (07:49)
[2017-10-22] MEDS: K, MAG and/or Phos replacement - Verify level? MC SCH (08:00)
[2017-10-22] MEDS ORDERED: methylnaltrexone br 12mg/0.6ml inj***SubQ only SQ SCH (08:00)
[2017-10-22] MEDS ORDERED: vancomycin inj 500 MG in dextrose 5%-water 100 ML IV ONE (09:10)
[2017-10-22] MEDS ORDERED: LORA1TAB PO (11:59)
[2017-10-22] MEDS ORDERED: TRAZ-143 PO (11:59)
[2017-10-22] MEDS ORDERED: HYDROcodone/acetaminophen 10/325mg tab PO PRN (12:40)
[2017-10-22] MEDS: morphine ER 15mg tablet PO SCH ×2 (16:00→23:58)
[2017-10-22] MEDS: propafenone 150mg tablet PO SCH (17:23)
[2017-10-22] MEDS: LORazepam 1 MG tablet PO PRN (17:23)
[2017-10-22] MEDS ORDERED: PROPAFENONE 225 MG PO SCH (20:00)
[2017-10-22] MEDS ORDERED: traZODone 50mg tablet PO SCH (21:00)
[2017-10-22] MEDS: insulin glargine (Lantus) pen - multi-dose SQ SCH (21:00)
[2017-10-23] VITALS (18 sets, daily range): BP systolic 114–155; BP diastolic 61–79
[2017-10-23] MEDS: ceFAZolin 1GM/D5W- ADD-VANTAGE 50 ML IV SCH (00:19)
[2017-10-23] MEDS: LORazepam 1 MG tablet PO PRN ×2 (00:22→08:29)
[2017-10-23] MEDS ORDERED: LORazepam 2 mg/ml vial IV ONE (01:45)
[2017-10-23] MEDS: dextrose 5%-water 1,000 ML IV SCH (02:36)
[2017-10-23] MEDS: hydrocortisone sod succ/PF 100mg/2ml inj. IV SCH ×3 (02:36→07:45)
[2017-10-23 02:53] LABS: BASOPHILS % (AUTO) 0.1 % (0-1); EOSINOPHILS # (AUTO) 0.1 X10'3 (0-0.9); EOSINOPHILS % (AUTO) 0.9 % (0-6); HEMATOCRIT 24.7 % (42.0-52.0); HEMOGLOBIN 8.5 g/dl (14.0-17.9); LYMPHOCYTES % (AUTO) 10.6 % (21-51); MEAN CORPUSCULAR HGB CONC 34.4 % (33.0-36.5); MEAN CORPUSCULAR VOLUME 96.1 FL (78-98); MEAN PLATELET VOLUME 7.5 FL (7.4-10.4); MONOCYTES # (AUTO) 0.7 X10'3 (0-0.9); MONOCYTES % (AUTO) 8.1 % (2-12); NEUTROPHILS # (AUTO) 7.2 X10'3 (1.8-7.7); NEUTROPHILS % (AUTO) 80.3 % (42-75); PLATELET COUNT 143 X10'3 (140-440); RED BLOOD COUNT 2.57 X10'6 (4.70-6.10); RED CELL DISTRIBUTION WIDTH 14.3 % (11.5-14.5)
[2017-10-23] MEDS: VANCOMYCIN LEVEL IV SCH (03:00)
[2017-10-23 03:02] LABS: INR 1.1 INR; PARTIAL THROMBOPLASTIN TIME 24 SECONDS (22-32); PROTHROMBIN TIME 11.3 SECONDS (9.0-12.0)
[2017-10-23 03:06] LABS: ALANINE AMINOTRANSFERASE 29 U/L (12-78); ALBUMIN 2.5 G/DL (3.4-5.0); ALKALINE PHOSPHATASE 46 IU/L (46-116); ANION GAP 7 (8-16); ASPARTATE AMINO TRANSFERASE 35 U/L (10-37); BILIRUBIN,TOTAL 0.3 MG/DL (0.1-1.0); BLOOD UREA NITROGEN 17 MG/DL (7-18); BUN/CREATININE RATIO 15.5 (5.4-32.0); CALCIUM 7.5 MG/DL (8.5-10.1); CHLORIDE 106 MMOL/L (99-107); GLUCOSE 145 MG/DL (70-104); MAGNESIUM 1.7 MG/DL (1.5-2.4); PHOSPHORUS 2.1 MG/DL (2.3-4.5); POTASSIUM 3.1 MMOL/L (3.5-5.1); SODIUM 141 MMOL/L (135-145); TOTAL CARBON DIOXIDE 28.5 MMOL/L (24-32); TOTAL PROTEIN 4.9 G/DL (6.4-8.2); eGFR 66 ML/MIN
[2017-10-23] MEDS: ipratropium/albuterol 3ml nebule NEB SCH ×4 (03:22→14:59)
[2017-10-23] MEDS ORDERED: potassium Cl 40MEQ/250ML bag 250 ML IV ONE (03:56)
[2017-10-23] MEDS: potassium Cl 40MEQ/250ML bag 250 ML IV SCH (04:11)
[2017-10-23] MEDS ORDERED: epoetin 20,000 units/ml inj SQ ONE (05:15)
[2017-10-23] MEDS: cephalexin 500mg capsule PO SCH ×2 (06:52→07:14)
[2017-10-23] MEDS: methylnaltrexone br 12mg/0.6ml inj***SubQ only SQ SCH (07:15)
[2017-10-23] MEDS: propafenone 150mg tablet PO SCH (07:34)
[2017-10-23] MEDS: enoxaparin 30mg/0.3ml syringe SUBCUT SCH (07:34)
[2017-10-23] MEDS: morphine ER 15mg tablet PO SCH ×2 (07:38→15:47)
[2017-10-23 07:54] LABS: VANCOMYCIN,RANDOM 7.7 UG/ML
[2017-10-23] MEDS ORDERED: furosemide 40mg tablet PO SCH (08:00)
[2017-10-23] MEDS ORDERED: multivitamins, therapeutics tablet PO SCH (08:00)
[2017-10-23] MEDS ORDERED: potassium Cl 20 mEq SR tablet PO SCH (08:00)
[2017-10-23] MEDS: K, MAG and/or Phos replacement - Verify level? MC SCH (08:00)
[2017-10-23] MEDS ORDERED: predniSONE 5mg tablet PO SCH (08:00)
[2017-10-23] MEDS ORDERED: OMEPRAZOLE 40 MG PO SCH (08:00)
[2017-10-23] MEDS ORDERED: vancomycin/NS 1 GM ADD-VANTAGE 250 ML IV ONE (08:15)
[2017-10-23] MEDS ORDERED: MSC15T PO (08:29)
[2017-10-23] MEDS ORDERED: CEPH500C5 PO (08:29)
[2017-10-23] MEDS ORDERED: aspirin 81mg tab.chew PO SCH (08:30)
== END 2017-10-23 19:06 | disposition home or self-care (01) | DRG 872 ==
LOC: ER 04:24 → ED HOLD 06:52 → ICU 2S 08:00
PROVIDERS: ADMIT Internal Medicine Critical Care Medicine; ATTEND Internal Medicine Critical Care Medicine
PROC: 0BH17EZ Insertion of Endotracheal Airway into Trachea, Via Natural or Artificial Opening (ICD-10-PCS; principal; 2017-10-19)
PROC: 5A1945Z Respiratory Ventilation, 24-96 Consecutive Hours (ICD-10-PCS; 2017-10-19)
PROC: 02HV33Z Insertion of Infusion Device into Superior Vena Cava, Percutaneous Approach (ICD-10-PCS; 2017-10-19)
PROC: 04HY33Z Insertion of Infusion Device into Lower Artery, Percutaneous Approach (ICD-10-PCS; 2017-10-19)
DX: A41.1 Sepsis due to other specified staphylococcus (principal); N17.9 Acute kidney failure, unspecified; E87.0 Hyperosmolality and hypernatremia; I48.91 Unspecified atrial fibrillation; I25.10 Atherosclerotic heart disease of native coronary artery without angina pectoris; F32.9 Major depressive disorder, single episode, unspecified; F41.9 Anxiety disorder, unspecified; G89.29 Other chronic pain; K57.90 Diverticulosis of intestine, part unspecified, without perforation or abscess without bleeding; K52.9 Noninfective gastroenteritis and colitis, unspecified; M54.9 Dorsalgia, unspecified; Z88.0 Allergy status to penicillin; Z88.1 Allergy status to other antibiotic agents; Z88.6 Allergy status to analgesic agent; Z88.8 Allergy status to other drugs, medicaments and biological substances; Z79.899 Other long term (current) drug therapy; Z87.11 Personal history of peptic ulcer disease; Z90.49 Acquired absence of other specified parts of digestive tract
CPT/HCPCS: 36415; 36600; 70450; 71045; 71250; 72141; 72146; 72148; 74018; 74176; 80048; 80053; 80202; 82150; 82550; 82570; 82803; 82810; 82948; 83605; 83690; 83735; 83880; 84100; 84132; 84134; 84145; 84156; 84300; 84439; 84443; 84484; 84540; 85007; 85018; 85025; 85379; 85384; 85610; 85730; 87040; 87070; 87077; 87186; 87324; 87449; 92616; 93005; 94002; 94003; 94640; 94668; 94760; 97116; 97530; 97535; A4620; A6212; A6213; A6258; A6402; A6449; A7015; C1751; C1758; C9113; J0690; J0885; J1650; J1720; J1815; J1940; J2060; J2250; J2270; J2405; J2704; J2930; J3370; J3475; J3480; J3490; J7030; J7042; J7060; J7070; J7512; Q9963

== ENCOUNTER 2018-03-06 08:47 | Emergency (ER) | payer OTHER, MEDICARE ==
[~2018-03-06] VITALS: Ht 180.3 cm; Wt 68.2 kg
[~2018-03-06 08:47] MED LIST changes: +CEPH500C5 PO; -DIAZ5TAB PO; +MSC15T PO; -NORCO10T PO; -TAM75C PO; +TRAZ-218 PO; -[UNRECOGNIZED DRUG - CODE] TP
[2018-03-06 08:55] VITALS: BP 138/71
== END 2018-03-06 09:57 | disposition home or self-care (01) ==
LOC: ER 08:48
DX: S90.511A Abrasion, right ankle, initial encounter (principal); M79.661 Pain in right lower leg; I48.91 Unspecified atrial fibrillation; I25.10 Atherosclerotic heart disease of native coronary artery without angina pectoris; G89.29 Other chronic pain; F41.9 Anxiety disorder, unspecified; F32.9 Major depressive disorder, single episode, unspecified; Z90.49 Acquired absence of other specified parts of digestive tract; Z87.11 Personal history of peptic ulcer disease; Z87.19 Personal history of other diseases of the digestive system; Z79.82 Long term (current) use of aspirin; Z88.0 Allergy status to penicillin; Z88.5 Allergy status to narcotic agent; Z88.8 Allergy status to other drugs, medicaments and biological substances; X58.XXXA Exposure to other specified factors, initial encounter; Y93.89 Activity, other specified; Y92.89 Other specified places as the place of occurrence of the external cause; Y99.8 Other external cause status
CPT/HCPCS: 93971; 99284

== ENCOUNTER 2018-04-16 11:54 | Outpatient (CLI) | payer OTHER, MEDICARE | END 2018-04-16 23:59 | disposition home or self-care (01) | LOC: RAD 11:54 | PROVIDERS: ATTEND Family Medicine | DX: M19.071 Primary osteoarthritis, right ankle and foot (principal); M25.774 Osteophyte, right foot; J44.9 Chronic obstructive pulmonary disease, unspecified; I10 Essential (primary) hypertension; K21.9 Gastro-esophageal reflux disease without esophagitis; Z79.82 Long term (current) use of aspirin; Z79.899 Other long term (current) drug therapy; Z87.891 Personal history of nicotine dependence | CPT/HCPCS: 73660 ==

== ENCOUNTER 2018-05-02 08:04 | Outpatient (CLI) | payer OTHER, MEDICARE ==
[~2018-05-02] VITALS: Ht 177.8 cm; Wt 72.0 kg
[2018-05-02] VITALS (11 sets, daily range): BP systolic 83–117; BP diastolic 46–72
[2018-05-02] MEDS ORDERED: nitroGLYCERIN 0.4mg SUBLingual tab SL PRN (08:55)
[2018-05-02] MEDS ORDERED: regadenoson 0.4mg/5ml syringe IV ONE (08:55)
[2018-05-02] MEDS ORDERED: aminophylline 250mg/10ml inj. IV PRN (08:55)
== END 2018-05-02 23:59 | disposition home or self-care (01) ==
LOC: CARD DIAG 08:04
PROVIDERS: ATTEND Internal Medicine Interventional Cardiology
DX: I08.0 Rheumatic disorders of both mitral and aortic valves (principal); I48.91 Unspecified atrial fibrillation; I10 Essential (primary) hypertension; I65.23 Occlusion and stenosis of bilateral carotid arteries; J44.9 Chronic obstructive pulmonary disease, unspecified; Z79.82 Long term (current) use of aspirin; Z87.891 Personal history of nicotine dependence; Z79.899 Other long term (current) drug therapy
CPT/HCPCS: 78452; 93017; 93306; 93880; A9500

== ENCOUNTER 2018-06-07 11:15 | Day surgery (SDC) | payer OTHER, MEDICARE ==
[~2018-06-07] VITALS: Ht 180.3 cm; Wt 73.6 kg
[2018-06-07 11:30] VITALS: BP 133/76
[2018-06-07] MEDS ORDERED: normal saline 1000ml 1,000 ML IV SCH (12:15)
[2018-06-07] MEDS ORDERED: LORazepam 0.5 MG tablet PO PRN (12:15)
[2018-06-07] MEDS ORDERED: diphenhydrAMINE 25mg capsule PO PRN (12:15)
[2018-06-07] MEDS ORDERED: iohexol 350MG/ML 100ml bottle IV ONE (13:32)
[2018-06-07] MEDS ORDERED: LIDOcaine 1% 30ml preserv. free vial ONE (13:32)
[2018-06-07] MEDS ORDERED: midazolam 2 mg/2 ml injection ONE (13:32)
[2018-06-07] MEDS ORDERED: fentaNYL/PF 50MCG/1 ML 2ML syringe ONE (13:32)
[2018-06-07 13:38] LABS: BASOPHILS % (AUTO) 0.3 % (0-1); EOSINOPHILS # (AUTO) 0.3 X10'3 (0-0.9); EOSINOPHILS % (AUTO) 4.5 % (0-6); HEMATOCRIT 32.5 % (42.0-52.0); HEMOGLOBIN 10.9 g/dl (14.0-17.9); LYMPHOCYTES # (AUTO) 1.8 X10'3 (1.1-4.8); LYMPHOCYTES % (AUTO) 31.3 % (21-51); MEAN CORPUSCULAR HEMOGLOBIN 32.6 PG (27.0-31.0); MEAN CORPUSCULAR HGB CONC 33.7 % (33.0-36.5); MEAN CORPUSCULAR VOLUME 96.7 FL (78-98); MEAN PLATELET VOLUME 7.8 FL (7.4-10.4); MONOCYTES # (AUTO) 0.6 X10'3 (0-0.9); MONOCYTES % (AUTO) 9.9 % (2-12); NEUTROPHILS # (AUTO) 3.1 X10'3 (1.8-7.7); PLATELET COUNT 185 X10'3 (140-440); RED BLOOD COUNT 3.36 X10'6 (4.70-6.10); RED CELL DISTRIBUTION WIDTH 14.1 % (11.5-14.5); WHITE BLOOD COUNT 5.8 X10'3 (4.5-11.0)
[2018-06-07 13:53] LABS: ALBUMIN 3.5 G/DL (3.4-5.0); ANION GAP 13 (8-16); BLOOD UREA NITROGEN 28 MG/DL (7-18); BUN/CREATININE RATIO 19.3 (5.4-32.0); CALCIUM 8.5 MG/DL (8.5-10.1); CHLORIDE 107 MMOL/L (99-107); CREATININE 1.45 MG/DL (0.60-1.10); GLUCOSE 103 MG/DL (70-104); SODIUM 137 MMOL/L (135-145); TOTAL CARBON DIOXIDE 17.4 MMOL/L (24-32); eGFR 48 ML/MIN
[2018-06-07 13:58] LABS: PARTIAL THROMBOPLASTIN TIME 23 SECONDS (22-32); PROTHROMBIN TIME 10.5 SECONDS (9.0-12.0)
[2018-06-07 15:39] VITALS: BP 115/63
[2018-06-07 15:45] VITALS: BP 101/61
[2018-06-07 16:00] VITALS: BP 99/60
[2018-06-07] MEDS ORDERED: OXAZEpam 15mg capsule PO PRN (16:15)
[2018-06-07] MEDS ORDERED: proCHLORperazine 10 MG/2 ml inj IV PRN (16:15)
[2018-06-07] MEDS ORDERED: nitroGLYCERIN 0.4mg SUBLingual tab SL PRN (16:15)
[2018-06-07] MEDS ORDERED: ondansetron/PF 4mg/2ml inj IV PRN (16:15)
[2018-06-07 16:30] VITALS: BP 115/65
== END 2018-06-07 17:30 | disposition home or self-care (01) ==
LOC: PCU 3S 11:15 → CATH LAB 11:15
PROVIDERS: ATTEND Internal Medicine Interventional Cardiology
DX: I25.118 Atherosclerotic heart disease of native coronary artery with other forms of angina pectoris (principal); I10 Essential (primary) hypertension; E78.5 Hyperlipidemia, unspecified; I48.91 Unspecified atrial fibrillation; J44.9 Chronic obstructive pulmonary disease, unspecified; K21.9 Gastro-esophageal reflux disease without esophagitis; I65.23 Occlusion and stenosis of bilateral carotid arteries; Z86.69 Personal history of other diseases of the nervous system and sense organs; Z86.79 Personal history of other diseases of the circulatory system; Z87.448 Personal history of other diseases of urinary system; Z90.49 Acquired absence of other specified parts of digestive tract; Z87.2 Personal history of diseases of the skin and subcutaneous tissue; Z79.891 Long term (current) use of opiate analgesic; Z88.0 Allergy status to penicillin; Z88.5 Allergy status to narcotic agent; Z88.1 Allergy status to other antibiotic agents; Z91.048 Other nonmedicinal substance allergy status; Z79.82 Long term (current) use of aspirin; Z98.890 Other specified postprocedural states; Z79.899 Other long term (current) drug therapy; Z88.8 Allergy status to other drugs, medicaments and biological substances
CPT/HCPCS: 36415; 80048; 85025; 85610; 85730; 87070; 93458; 99152; 99153; A6257; C1760; J1644; J2250; J3010; J3490; J7030; Q9967; A4620; C1769; G0378

== ENCOUNTER 2018-06-21 09:14 | Outpatient (CLI) | payer OTHER, MEDICARE | END 2018-06-21 23:59 | disposition home or self-care (01) | LOC: RAD 09:14 | PROVIDERS: ATTEND Family Medicine | DX: R06.09 Other forms of dyspnea (principal); I10 Essential (primary) hypertension; J44.9 Chronic obstructive pulmonary disease, unspecified; Z79.82 Long term (current) use of aspirin; Z87.891 Personal history of nicotine dependence | CPT/HCPCS: 71046 ==

== ENCOUNTER 2018-10-04 08:27 | Emergency (ER) | payer OTHER, MEDICARE ==
[~2018-10-04] VITALS: Ht 180.3 cm; Wt 75.0 kg
[2018-10-04 09:05] VITALS: BP 125/71
[2018-10-04] MEDS ORDERED: sulfamethoxazole/trimethoprim DS (800/160mg) tablet PO ONE (10:10)
[2018-10-04] MEDS ORDERED: cephalexin 250mg capsule PO ONE (10:10)
[2018-10-04] MEDS ORDERED: BACDS PO (11:40)
[2018-10-04] MEDS ORDERED: CEPH500C5 PO (11:40)
== END 2018-10-04 12:14 | disposition home or self-care (01) ==
LOC: ER 08:27
DX: L03.031 Cellulitis of right toe (principal); I48.91 Unspecified atrial fibrillation; I25.10 Atherosclerotic heart disease of native coronary artery without angina pectoris; G89.29 Other chronic pain; Z90.49 Acquired absence of other specified parts of digestive tract; Z98.890 Other specified postprocedural states; Z88.8 Allergy status to other drugs, medicaments and biological substances; Z88.0 Allergy status to penicillin; Z88.5 Allergy status to narcotic agent; Z88.1 Allergy status to other antibiotic agents; Z79.82 Long term (current) use of aspirin; Z79.899 Other long term (current) drug therapy
CPT/HCPCS: 73660; 99284

== ENCOUNTER 2018-11-05 19:18 | Inpatient (IN) | payer OTHER, MEDICARE ==
[~2018-11-05] VITALS: Ht 177.8 cm; Wt 72.4 kg
[2018-11-05 20:06] LABS: CLARITY,URINE CLEAR (Clear); COLOR,URINE YELLOW (Yellow); GLUCOSE, URINE NEGATIVE (Neg); KETONES,URINE NEGATIVE (Neg); LEUKOCYTE ESTERASE ,URINE NEGATIVE (Neg); NITRITES, URINE NEGATIVE (Neg); OCCULT BLOOD,URINE MODERATE (Neg); PROTEIN,URINE NEGATIVE (Neg); UROBILINOGEN,URINE 0.2 E.U/dL (0.2-1.0)
[2018-11-05 20:07] LABS: UA COLLECTION TYPE NON-SPECIFIED
[2018-11-05 20:12] LABS: BASOPHILS % (AUTO) 0.3 % (0-1); EOSINOPHILS # (AUTO) 0.4 X10'3 (0-0.9); HEMATOCRIT 31.3 % (42.0-52.0); HEMOGLOBIN 10.9 g/dl (14.0-17.9); LYMPHOCYTES # (AUTO) 2.1 X10'3 (1.1-4.8); LYMPHOCYTES % (AUTO) 30.5 % (21-51); MEAN CORPUSCULAR HEMOGLOBIN 32.6 PG (27.0-31.0); MEAN CORPUSCULAR HGB CONC 34.9 g/dL (33.0-36.5); MEAN CORPUSCULAR VOLUME 93.4 FL (78-98); MEAN PLATELET VOLUME 7.7 FL (7.4-10.4); MONOCYTES # (AUTO) 0.9 X10'3 (0-0.9); MONOCYTES % (AUTO) 12.6 % (2-12); NEUTROPHILS # (AUTO) 3.4 X10'3 (1.8-7.7); NEUTROPHILS % (AUTO) 50.6 % (42-75); PLATELET COUNT 240 X10'3 (140-440); RED BLOOD COUNT 3.35 X10'6 (4.70-6.10); RED CELL DISTRIBUTION WIDTH 15.7 % (11.5-14.5); WHITE BLOOD COUNT 6.8 X10'3 (4.5-11.0)
[2018-11-05] MEDS ORDERED: ondansetron 4mg rapidly disintigrating tab PO ONE (20:15)
[2018-11-05 20:18] LABS: BACTERIA,URINE FEW /HPF (Neg); WBC,URINE 0-4 /HPF (0-4)
[2018-11-05 20:19] LABS: SQUAMOUS EPITHELIAL CELL,UR FEW /LPF (FEW)
[2018-11-05 20:20] LABS: RBC,URINE 0-2 /HPF (0-2)
[2018-11-05 20:31] LABS: ALANINE AMINOTRANSFERASE 111 U/L (12-78); ALBUMIN 3.7 G/DL (3.4-5.0); ALBUMIN/GLOBULIN RATIO 1.2 (1.1-1.5); ALKALINE PHOSPHATASE 92 IU/L (46-116); ANION GAP 15 (8-16); ASPARTATE AMINO TRANSFERASE 92 U/L (10-37); BILIRUBIN,TOTAL 0.2 MG/DL (0.1-1.0); BLOOD UREA NITROGEN 25 MG/DL (7-18); BUN/CREATININE RATIO 13.9 (5.4-32.0); CALCIUM 8.8 MG/DL (8.5-10.1); CHLORIDE 112 MMOL/L (99-107); GLUCOSE 123 MG/DL (70-104); SODIUM 140 MMOL/L (135-145); TOTAL PROTEIN 6.8 G/DL (6.4-8.2); TROPONIN I < 0.04 NG/ML (0.0-0.05); eGFR 37 ML/MIN
[2018-11-05 20:34] LABS: POTASSIUM 2.4 MMOL/L (3.5-5.1)
[2018-11-05 20:35] LABS: TOTAL CARBON DIOXIDE 12.8 MMOL/L (24-32)
[2018-11-05] MEDS ORDERED: potassium 10mEq/100ml NS w/LIDOcaine (10mg/bag) IV ONE (20:40)
[2018-11-05] MEDS ORDERED: normal saline 1000ml 1,000 ML IV ONE (20:40)
[2018-11-05] MEDS ORDERED: magnesium 2GM in 50ml NS 50 ML IV ONE (20:40)
[2018-11-05] MEDS ORDERED: potassium Cl 20 mEq SR tablet PO ONE (20:40)
[2018-11-05 21:05] LABS: MAGNESIUM 1.3 MG/DL (1.5-2.4)
[2018-11-05] MEDS ORDERED: LORA1TAB PO (21:56)
[2018-11-05] MEDS ORDERED: HYDR-4353 PO (21:56)
[2018-11-05] MEDS ORDERED: ALBU8.5H8 INH (21:56)
[2018-11-05] MEDS ORDERED: DIPH1TAB PO (21:56)
[2018-11-05] MEDS ORDERED: CICL12.5 (21:56)
[2018-11-05] MEDS ORDERED: acetaminophen 325mg tablet PO PRN (22:05)
[2018-11-05] MEDS ORDERED: mag hydrox/Alum hydrox/simeth 30ml oral suspension PO PRN (22:05)
[2018-11-05] MEDS ORDERED: ondansetron/PF 4mg/2ml inj IV PRN (22:05)
[2018-11-05] MEDS ORDERED: HYDROcodone/acetaminophen 5mg/325mg tablet PO PRN (22:05)
[2018-11-05] MEDS ORDERED: HYDROcodone/acetaminophen 10/325mg tab PO PRN (22:05)
[2018-11-05] MEDS ORDERED: magnesium hydroxide 30ml (MOM) UD suspension PO PRN (22:05)
[2018-11-05] MEDS ORDERED: LORazepam 1 MG tablet PO PRN (22:10)
[2018-11-05] MEDS ORDERED: LORazepam 2 mg/ml vial IV PRN (22:10)
--- NOTE | 2018-11-05 23:00 | NUR ---
Received report from ED nurse JO ANN Moseley. Reports that patient came in with c/o nausea, diarrhea x5 days, Hypokalemic, low mag levels. Will await arrival to the unit.
--- NOTE | 2018-11-05 23:15 | NUR ---
Patient arrived to PCU floor at 2315. He is alert and oriented x4. Patient is able to ambulate from the gurney to the bed in 3009. He arrived with 2 bags with personal belongings. Assesment completed and assumed care of this patient.
[2018-11-05 23:20] VITALS: BP 101/59
[2018-11-05] MEDS: [UNRECOGNIZED DRUG - OTHER] IV SCH (23:37)
[2018-11-05] MEDS: POTASSIUM CL IV SCH (23:37)
[2018-11-05] MEDS: SODIUM BICARBONATE IV SCH (23:37)
[2018-11-06] MEDS ORDERED: albuterol 2.5 MG/3 ML nebule NEB PRN
[2018-11-06] MEDS ORDERED: aspirin 81mg tablet.DR PO ONE (01:20)
[2018-11-06] MEDS ORDERED: losartan 50mg tablet PO ONE (01:20)
[2018-11-06] MEDS ORDERED: propafenone 150mg tablet PO ONE (01:20)
[2018-11-06] MEDS ORDERED: traZODone 50mg tablet PO ONE (01:20)
[2018-11-06 02:00] VITALS: BP 102/53
[2018-11-06 04:58] LABS: BASOPHILS % (AUTO) 0.3 % (0-1); EOSINOPHILS # (AUTO) 0.3 X10'3 (0-0.9); EOSINOPHILS % (AUTO) 6.5 % (0-6); HEMATOCRIT 26.4 % (42.0-52.0); HEMOGLOBIN 9.4 g/dl (14.0-17.9); LYMPHOCYTES # (AUTO) 1.7 X10'3 (1.1-4.8); LYMPHOCYTES % (AUTO) 36.3 % (21-51); MEAN CORPUSCULAR HGB CONC 35.7 g/dL (33.0-36.5); MEAN CORPUSCULAR VOLUME 92.3 FL (78-98); MEAN PLATELET VOLUME 7.4 FL (7.4-10.4); MONOCYTES # (AUTO) 0.6 X10'3 (0-0.9); MONOCYTES % (AUTO) 13.1 % (2-12); NEUTROPHILS # (AUTO) 2.1 X10'3 (1.8-7.7); NEUTROPHILS % (AUTO) 43.8 % (42-75); PLATELET COUNT 203 X10'3 (140-440); RED BLOOD COUNT 2.86 X10'6 (4.70-6.10); RED CELL DISTRIBUTION WIDTH 15.2 % (11.5-14.5); WHITE BLOOD COUNT 4.8 X10'3 (4.5-11.0)
[2018-11-06 05:12] LABS: ALANINE AMINOTRANSFERASE 129 U/L (12-78); ALBUMIN 2.9 G/DL (3.4-5.0); ALBUMIN/GLOBULIN RATIO 1.2 (1.1-1.5); ALKALINE PHOSPHATASE 70 IU/L (46-116); ANION GAP 12 (8-16); ASPARTATE AMINO TRANSFERASE 131 U/L (10-37); BILIRUBIN,TOTAL 0.3 MG/DL (0.1-1.0); BLOOD UREA NITROGEN 22 MG/DL (7-18); BUN/CREATININE RATIO 15.1 (5.4-32.0); CALCIUM 7.9 MG/DL (8.5-10.1); CHLORIDE 114 MMOL/L (99-107); CREATININE 1.46 MG/DL (0.60-1.10); GLUCOSE 101 MG/DL (70-104); SODIUM 143 MMOL/L (135-145); TOTAL PROTEIN 5.4 G/DL (6.4-8.2); eGFR 47 ML/MIN
[2018-11-06 05:24] LABS: POTASSIUM 2.3 MMOL/L (3.5-5.1)
[2018-11-06] MEDS ORDERED: magnesium 4gm in 100ml NS 100 ML IV PRN (05:50)
[2018-11-06] MEDS ORDERED: magnesium Cl slow-release 64mg tablet PO PRN (05:50)
[2018-11-06] MEDS ORDERED: magnesium 2GM in 50ml NS 50 ML IV PRN (05:50)
[2018-11-06] MEDS ORDERED: potassium Cl 20 mEq SR tablet PO PRN (05:50)
[2018-11-06] MEDS ORDERED: potassium Cl 40MEQ/NS 500ml 500 ML IV PRN ×2 (05:50)
[2018-11-06 06:00] VITALS: BP 99/63
[2018-11-06] MEDS: potassium Cl 20 mEq SR tablet PO PRN ×5 (06:00→23:39)
--- NOTE | 2018-11-06 06:00 | NUR ---
Problems reprioritized. Patient report given, questions answered & plan of care reviewed with JO ANN Waters.
--- NOTE | 2018-11-06 06:37 | NUR ---
Patient in room PCU 3009. I have received report from Taryn CHERRY and had the opportunity to ask questions and assume patient care.
--- NOTE | 2018-11-06 06:39 | NUR ---
Patient in room PCU 3009. I have received report from Taryn CHERRY and had the opportunity to ask questions and assume patient care. Patient sleeping, all vitals stable, will continue to monitor.
[2018-11-06] MEDS: losartan 50mg tablet PO SCH (07:52)
[2018-11-06] MEDS: heparin, porcine 5000 units/ml vial SQ SCH ×2 (07:52→20:49)
[2018-11-06] MEDS: propafenone 150mg tablet PO SCH ×2 (07:54→20:49)
[2018-11-06] MEDS: aspirin 81mg tablet.DR PO SCH (07:54)
[2018-11-06] MEDS: pantoprazole 40mg Tablet.DR PO SCH (07:56)
[2018-11-06] MEDS ORDERED: predniSONE 5mg tablet PO SCH (08:00)
[2018-11-06 10:58] LABS: C DIFF ANTIGEN NEGATIVE (NEGATIVE); C DIFF SPECIMEN=DIARRHEA? ACCEPTABLE; C DIFFICILE TOXINS A&B NEGATIVE (Neg)
[2018-11-06 11:00] VITALS: BP 116/82
[2018-11-06] MEDS: [UNRECOGNIZED DRUG - OTHER] IV SCH ×2 (11:19→20:55)
[2018-11-06] MEDS: SODIUM BICARBONATE IV SCH ×2 (11:19→20:55)
[2018-11-06] MEDS: POTASSIUM CL IV SCH ×2 (11:19→20:55)
[2018-11-06] MEDS: HYDROcodone/acetaminophen 10/325mg tab PO PRN ×2 (13:03→17:04)
[2018-11-06 15:15] VITALS: BP 96/54
--- NOTE | 2018-11-06 17:06 | NUR ---
Paged Dr. Dick: PAGER ID: [phone] MESSAGE: Evelin [facility] [id number]. RE: Anthony Houser [phone]. Critical lab - Potassium: 2.9. Will replace per protocol orders. Thank you.
--- NOTE | 2018-11-06 18:31 | NUR ---
Problems reprioritized. Patient report given, questions answered & plan of care reviewed with Slime CHERRY.
--- NOTE | 2018-11-06 18:45 | NUR ---
Problems reprioritized. Patient report given, questions answered & plan of care reviewed with Estee CHERRY.
--- NOTE | 2018-11-06 18:46 | NUR ---
Patient in room PCU 3009. I have received report from Evelin RN & Joanne RN and had the opportunity to ask questions and assume patient care.
[2018-11-06 19:00] VITALS: BP 97/55
--- NOTE | 2018-11-06 19:16 | NUR ---
[place]rientee documentation: I have reviewed and agree with all interventions, assessments performed and documented by Joanne CHERRY. [place] Medication Administration: For this medication-pass time frame, all medication were reviewed, dispensed, administered and documented per hospital policy by Joanne CHERRY.
[2018-11-06] MEDS ORDERED: traZODone 50mg tablet PO SCH (21:00)
[2018-11-06] MEDS: NORCO PO PRN (22:02)
[2018-11-06 23:00] VITALS: BP 83/50
[2018-11-07 03:00] VITALS: BP 90/50
[2018-11-07 04:56] LABS: HEMOGLOBIN 8.8 g/dl (14.0-17.9); LYMPHOCYTES # (AUTO) 1.7 X10'3 (1.1-4.8); MONOCYTES # (AUTO) 0.6 X10'3 (0-0.9); RED BLOOD COUNT 2.69 X10'6 (4.70-6.10)
[2018-11-07 04:57] LABS: BASOPHILS % (AUTO) 0.5 % (0-1); EOSINOPHILS # (AUTO) 0.2 X10'3 (0-0.9); EOSINOPHILS % (AUTO) 4.5 % (0-6); HEMATOCRIT 25.3 % (42.0-52.0); LYMPHOCYTES % (AUTO) 35.4 % (21-51); MEAN CORPUSCULAR HEMOGLOBIN 32.5 PG (27.0-31.0); MEAN CORPUSCULAR HGB CONC 34.6 g/dL (33.0-36.5); MEAN PLATELET VOLUME 7.4 FL (7.4-10.4); MONOCYTES % (AUTO) 11.8 % (2-12); NEUTROPHILS # (AUTO) 2.2 X10'3 (1.8-7.7); NEUTROPHILS % (AUTO) 47.8 % (42-75); PLATELET COUNT 194 X10'3 (140-440); RED CELL DISTRIBUTION WIDTH 15.7 % (11.5-14.5); WHITE BLOOD COUNT 4.7 X10'3 (4.5-11.0)
[2018-11-07 05:25] LABS: ALANINE AMINOTRANSFERASE 103 U/L (12-78); ALBUMIN 2.6 G/DL (3.4-5.0); ALBUMIN/GLOBULIN RATIO 1.1 (1.1-1.5); ALKALINE PHOSPHATASE 66 IU/L (46-116); ANION GAP 11 (8-16); ASPARTATE AMINO TRANSFERASE 69 U/L (10-37); BILIRUBIN,TOTAL 0.3 MG/DL (0.1-1.0); BLOOD UREA NITROGEN 20 MG/DL (7-18); BUN/CREATININE RATIO 15.5 (5.4-32.0); CHLORIDE 115 MMOL/L (99-107); CREATININE 1.29 MG/DL (0.60-1.10); GLUCOSE 97 MG/DL (70-104); POTASSIUM 3.4 MMOL/L (3.5-5.1); SODIUM 146 MMOL/L (135-145); TOTAL CARBON DIOXIDE 19.8 MMOL/L (24-32); eGFR 55 ML/MIN
[2018-11-07] MEDS: NORCO PO PRN ×2 (05:55→09:59)
[2018-11-07 06:00] VITALS: BP 91/56
--- NOTE | 2018-11-07 06:15 | NUR ---
Patient in room PCU 3009. I have received report from JO ANN Darby and had the opportunity to ask questions and assume patient care.
[2018-11-07] MEDS: [UNRECOGNIZED DRUG - OTHER] IV SCH ×2 (07:35→12:20)
[2018-11-07] MEDS: SODIUM BICARBONATE IV SCH ×2 (07:35→12:20)
[2018-11-07] MEDS: POTASSIUM CL IV SCH ×2 (07:35→12:20)
[2018-11-07] MEDS ORDERED: magnesium Cl slow-release 64mg tablet PO SCH (08:00)
[2018-11-07] MEDS: losartan 50mg tablet PO SCH (08:00)
[2018-11-07] MEDS: pantoprazole 40mg Tablet.DR PO SCH (08:27)
[2018-11-07] MEDS: aspirin 81mg tablet.DR PO SCH (08:28)
[2018-11-07] MEDS: propafenone 150mg tablet PO SCH (08:29)
[2018-11-07] MEDS ORDERED: potassium Cl 20 mEq SR tablet PO SCH (08:30)
[2018-11-07] MEDS: heparin, porcine 5000 units/ml vial SQ SCH (08:30)
--- NOTE | 2018-11-07 08:36 | NUR ---
Holding losartan due to decreased BP 81/48 supine, 103/56 standing. Pt denies dizziness/blurred vision/CP.
[2018-11-07 11:00] VITALS: BP 106/69
--- NOTE | 2018-11-07 11:11 | NUR ---
Notified Dr Alicea of holding losartan this AM due to decreased BP. Requested clarification on K replacement for K3.4 this AM since there is scheduled K-Dur, per , okay to hold PRN dose, scheduled is enough. Also received order to add mag to AM lab.
[2018-11-07 11:37] LABS: MAGNESIUM 1.5 MG/DL (1.5-2.4)
--- NOTE | 2018-11-07 13:20 | NUR ---
Notified by telegraph installer that patient is off telemetry, visual check on patient determines that patient is removing telemetry monitoring device, states that he is being discharged. 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
--- NOTE | 2018-11-07 13:26 | NUR ---
PAGER ID: [phone] MESSAGE: [phone] Melecio Olivas Pt states that he is being discharged, needs to leave for a 1440 pickup. No discharge orders at this time. FYI. Toma RN [phone]
--- NOTE | 2018-11-07 13:55 | NUR ---
Pt discharged. Home meds ([id number]) returned to patient. IV removed, catheter intact. Tele box removed. Pt's belongings to car with patient's . Pt states no other belongings are left in room. Pt transported to [facility] via wheelchair in stable condition. Pt home with via private vehicle. Care relinquished.
== END 2018-11-07 14:00 | disposition home or self-care (01) | DRG 392 ==
LOC: ER 19:19 → ED HOLD 23:50 → CMPBEDREQ 11-06 00:05 → CICU 2S 11-06 00:31 → PCU 3S 11-06 01:26
PROVIDERS: ADMIT Internal Medicine; ATTEND Family Medicine
DX: K52.9 Noninfective gastroenteritis and colitis, unspecified (principal); E87.2 Acidosis; E83.42 Hypomagnesemia; E86.0 Dehydration; K57.90 Diverticulosis of intestine, part unspecified, without perforation or abscess without bleeding; E87.6 Hypokalemia; D64.9 Anemia, unspecified; I12.9 Hypertensive chronic kidney disease with stage 1 through stage 4 chronic kidney disease, or unspecified chronic kidney disease; N18.9 Chronic kidney disease, unspecified; I25.10 Atherosclerotic heart disease of native coronary artery without angina pectoris; M54.9 Dorsalgia, unspecified; I48.91 Unspecified atrial fibrillation; F32.9 Major depressive disorder, single episode, unspecified; F41.9 Anxiety disorder, unspecified; G89.29 Other chronic pain; Z87.11 Personal history of peptic ulcer disease; Z87.891 Personal history of nicotine dependence; Z87.01 Personal history of pneumonia (recurrent); Z88.0 Allergy status to penicillin; Z88.8 Allergy status to other drugs, medicaments and biological substances; Z88.5 Allergy status to narcotic agent; Z90.49 Acquired absence of other specified parts of digestive tract; Z79.899 Other long term (current) drug therapy
CPT/HCPCS: 36415; 80053; 81001; 83605; 83735; 84132; 84484; 85025; 85610; 87045; 87046; 87070; 87324; 87449; 89055; 94760; 96361; 96365; 99285; G0378; J1644; J2060; J3475; J3480

== ENCOUNTER 2018-12-12 08:56 | Outpatient (CLI) | payer OTHER, MEDICARE ==
[~2018-12-12 08:56] MED LIST changes: +ALBU8.5H8 INH; -CEPH500C5 PO; +CICL12.5; +DIPH1TAB PO; -FURO80TA87 PO; +HYDR-4353 PO; +LORA1TAB PO; -MSC15T PO; -POTA20TA10 PO; -TRAZ-218 PO; +TRAZ-251 PO
[2018-12-12 10:02] LABS: BASOPHILS % (AUTO) 0.2 % (0-1); EOSINOPHILS # (AUTO) 0.2 X10'3 (0-0.9); EOSINOPHILS % (AUTO) 4.9 % (0-6); HEMATOCRIT 31.3 % (42.0-52.0); HEMOGLOBIN 10.7 g/dl (14.0-17.9); LYMPHOCYTES # (AUTO) 1.4 X10'3 (1.1-4.8); LYMPHOCYTES % (AUTO) 28.2 % (21-51); MEAN CORPUSCULAR HEMOGLOBIN 32.9 PG (27.0-31.0); MEAN CORPUSCULAR HGB CONC 34.1 g/dL (33.0-36.5); MEAN CORPUSCULAR VOLUME 96.5 FL (78-98); MEAN PLATELET VOLUME 7.8 FL (7.4-10.4); MONOCYTES # (AUTO) 0.5 X10'3 (0-0.9); MONOCYTES % (AUTO) 10.4 % (2-12); NEUTROPHILS # (AUTO) 2.7 X10'3 (1.8-7.7); NEUTROPHILS % (AUTO) 56.3 % (42-75); PLATELET COUNT 174 X10'3 (140-440); RED BLOOD COUNT 3.24 X10'6 (4.70-6.10); RED CELL DISTRIBUTION WIDTH 14.9 % (11.5-14.5); WHITE BLOOD COUNT 4.8 X10'3 (4.5-11.0)
[2018-12-12 10:10] LABS: % IRON SATURATION 39 % (11-46); IRON 120 UG/DL (53-167); TOTAL IRON BINDING CAPACITY 311 UG/DL (259-388)
[2018-12-12 10:12] LABS: ALANINE AMINOTRANSFERASE 40 U/L (12-78); ALBUMIN 3.4 G/DL (3.4-5.0); ALKALINE PHOSPHATASE 94 IU/L (46-116); ANION GAP 12 (8-16); ASPARTATE AMINO TRANSFERASE 21 U/L (10-37); BILIRUBIN,TOTAL 0.2 MG/DL (0.1-1.0); BLOOD UREA NITROGEN 22 MG/DL (7-18); BUN/CREATININE RATIO 14.7 (5.4-32.0); CALCIUM 8.3 MG/DL (8.5-10.1); CHLORIDE 109 MMOL/L (99-107); GLUCOSE 110 MG/DL (70-104); SODIUM 138 MMOL/L (135-145); TOTAL CARBON DIOXIDE 17.5 MMOL/L (24-32); TOTAL PROTEIN 6.7 G/DL (6.4-8.2); eGFR 46 ML/MIN
== END 2018-12-12 23:59 | disposition home or self-care (01) ==
LOC: LAB 08:56
PROVIDERS: ATTEND Family Medicine
DX: D50.8 Other iron deficiency anemias (principal); E87.8 Other disorders of electrolyte and fluid balance, not elsewhere classified; E87.6 Hypokalemia; J44.9 Chronic obstructive pulmonary disease, unspecified; I10 Essential (primary) hypertension; Z87.891 Personal history of nicotine dependence
CPT/HCPCS: 36415; 80053; 82607; 82746; 83540; 83550; 85025

== ENCOUNTER 2018-12-20 10:10 | Outpatient (CLI) | payer OTHER, MEDICARE | END 2018-12-20 23:59 | disposition home or self-care (01) | LOC: RAD 10:10 | PROVIDERS: ATTEND Family Medicine | DX: M25.561 Pain in right knee (principal) | CPT/HCPCS: 73721 ==

== ENCOUNTER 2019-04-16 12:14 | Day surgery (SDC) | payer OTHER, MEDICARE ==
[2019-04-03 15:44] LABS: BASOPHILS % (AUTO) 0.4 % (0-1); EOSINOPHILS # (AUTO) 0.3 X10'3 (0-0.9); EOSINOPHILS % (AUTO) 4.6 % (0-6); LYMPHOCYTES # (AUTO) 1.7 X10'3 (1.1-4.8); LYMPHOCYTES % (AUTO) 24.9 % (21-51); MEAN CORPUSCULAR HEMOGLOBIN 33.5 PG (27.0-31.0); MEAN CORPUSCULAR HGB CONC 33.9 g/dL (33.0-36.5); MEAN CORPUSCULAR VOLUME 98.9 FL (78-98); MEAN PLATELET VOLUME 7.3 FL (7.4-10.4); MONOCYTES # (AUTO) 0.7 X10'3 (0-0.9); MONOCYTES % (AUTO) 9.7 % (2-12); NEUTROPHILS # (AUTO) 4.2 X10'3 (1.8-7.7); NEUTROPHILS % (AUTO) 60.4 % (42-75); PRE OP HEMATOCRIT 31.7 % (42.0-52.0); PRE OP PLATELET COUNT 198 X10'3 (140-440); RED CELL DISTRIBUTION WIDTH 13.8 % (11.5-14.5)
[2019-04-03 15:46] LABS: PRE OP HEMOGLOBIN 10.7 g/dL (14.0-17.9)
[2019-04-03 16:04] LABS: ALBUMIN 3.7 G/DL (3.4-5.0); ALBUMIN/GLOBULIN RATIO 1.1 (1.1-1.5); ALKALINE PHOSPHATASE 96 IU/L (46-116); BLOOD UREA NITROGEN 25 MG/DL (7-18); BUN/CREATININE RATIO 18.4 (5.4-32.0); CALCIUM 8.7 MG/DL (8.5-10.1); CHLORIDE 109 MMOL/L (99-107); CREATININE 1.36 MG/DL (0.60-1.10); PRE OP ALT 58 U/L (30-65); PRE OP ANION GAP 12 (8-16); PRE OP AST 47 U/L (10-37); PRE OP BILIRUB, TOTAL 0.5 MG/DL (0.0-1.0); PRE OP GLUCOSE 94 MG/DL (70-104); PRE OP POTASSIUM 4.2 MMOL/L (3.4-5.1); PRE OP SODIUM 140 MMOL/L (135-145); TOTAL CARBON DIOXIDE 18.7 MMOL/L (24-32); TOTAL PROTEIN 7.2 G/DL (6.4-8.2); eGFR 51 ML/MIN
[2019-04-16] VITALS (10 sets, daily range): BP systolic 106–133; BP diastolic 42–81
[~2019-04-16] VITALS: Ht 180.3 cm; Wt 70.0 kg
[~2019-04-16 12:14] MED LIST changes: -CICL12.5; +CICL12.5 NS; +FURO80TA87 PO; +META800T87 PO; +POTA20TA19 PO; -PRED20TA PO; +THIA100T66 PO; +ceFAZolin 1GM/D5W- ADD-VANTAGE 50 ML IV ONE; +famotidine 20mg tablet PO ONE; +ringers solution, lacted 1,000 ML IV SCH
[2019-04-16] MEDS ORDERED: LIDOcaine 1% (10mg/ml) 2ml vial ONE (12:59)
[2019-04-16] MEDS ORDERED: ROPIVAcaine 0.5% (5mg/ml) 30ml vial ONE (14:25)
[2019-04-16] MEDS ORDERED: sevoflurane 250ml liquid IH ONE (15:11)
[2019-04-16] MEDS ORDERED: dexamethasone sod phosphate 10mg/ml inj ONE (15:11)
[2019-04-16] MEDS ORDERED: fentaNYL/PF 50MCG/1 ML 2ML syringe ONE ×2 (15:11→15:34)
[2019-04-16] MEDS ORDERED: LIDOcaine 2% (20mg/ml) 5ml vial ONE (15:18)
[2019-04-16] MEDS ORDERED: propofol inj 20 ML IV ONE (15:18)
[2019-04-16] MEDS ORDERED: ondansetron/PF 4mg/2ml inj ONE (15:18)
[2019-04-16] MEDS ORDERED: ringers solution, lacted 1,000 ML IV SCH (15:35)
[2019-04-16] MEDS ORDERED: enalaprilat dihydrate 2.5mg/2ml vial IV PRN (15:35)
[2019-04-16] MEDS ORDERED: hydrALAZINE 20mg/ml inj. IV PRN (15:35)
[2019-04-16] MEDS ORDERED: ondansetron/PF 4mg/2ml inj IV PRN (15:35)
[2019-04-16] MEDS ORDERED: fentaNYL/PF 50MCG/1 ML 2ML syringe IV PRN ×2 (15:35)
[2019-04-16] MEDS ORDERED: morphine 4 MG/ML inj SYRINge IV PRN ×2 (15:35)
--- NOTE | 2019-04-16 16:10 | NUR ---
Received from OR via LINDA, accompanied by Anesthesiologist DR PINA and report given by Anesthesiologist. PT DROWSY, DENIES PAIN, RIGHT KNEE W/TOY WRAP CDI. Addendum: 04/16/19 at 1720 by Margaret Henry RN Amended: Links added.
--- NOTE | 2019-04-16 17:30 | NUR ---
D/C INSTRUCTIONS GIVEN AND GONE OVER W/PT AND PTS , BOTH VERBALIZED UNDERSTANDING, PT D/CD TO HOME VIA W/C TO PRIVATE VEHICLE WITHOUT INCIDENT. Addendum: 04/16/19 at 1750 by Margaret Henry RN Amended: Links added.
== END 2019-04-16 17:30 | disposition home or self-care (01) ==
LOC: PAS 12:14
PROVIDERS: ATTEND Orthopaedic Surgery
DX: M25.561 Pain in right knee (principal); M94.261 Chondromalacia, right knee; M23.8X1 Other internal derangements of right knee; I48.91 Unspecified atrial fibrillation; K21.9 Gastro-esophageal reflux disease without esophagitis; M19.90 Unspecified osteoarthritis, unspecified site; I12.0 Hypertensive chronic kidney disease with stage 5 chronic kidney disease or end stage renal disease; N18.9 Chronic kidney disease, unspecified; Z87.891 Personal history of nicotine dependence; Z79.82 Long term (current) use of aspirin; Z79.899 Other long term (current) drug therapy
CPT/HCPCS: 29870; 36415; 73502; 80053; 82948; 85025; J0690; J1100; J2001; J2405; J2704; J3010; J7120; A4215; A4618; A6449; A7000; J2795

== ENCOUNTER 2019-08-04 13:14 | Outpatient (CLI) | payer OTHER, MEDICARE ==
[~2019-08-04 13:14] MED LIST changes: -ceFAZolin 1GM/D5W- ADD-VANTAGE 50 ML IV ONE; -famotidine 20mg tablet PO ONE; -ringers solution, lacted 1,000 ML IV SCH
[2019-08-04 13:55] LABS: BASOPHILS % (AUTO) 0.4 % (0-1); EOSINOPHILS # (AUTO) 0.1 X10'3 (0-0.9); EOSINOPHILS % (AUTO) 1.4 % (0-6); HEMATOCRIT 33.3 % (42.0-52.0); HEMOGLOBIN 11.4 g/dl (14.0-17.9); LYMPHOCYTES # (AUTO) 1.2 X10'3 (1.1-4.8); LYMPHOCYTES % (AUTO) 21.8 % (21-51); MEAN CORPUSCULAR HEMOGLOBIN 34.3 PG (27.0-31.0); MEAN CORPUSCULAR HGB CONC 34.2 g/dL (33.0-36.5); MEAN CORPUSCULAR VOLUME 100.4 FL (78-98); MEAN PLATELET VOLUME 7.4 FL (7.4-10.4); MONOCYTES # (AUTO) 0.4 X10'3 (0-0.9); NEUTROPHILS # (AUTO) 3.9 X10'3 (1.8-7.7); NEUTROPHILS % (AUTO) 69.4 % (42-75); PLATELET COUNT 172 X10'3 (140-440); RED BLOOD COUNT 3.32 X10'6 (4.70-6.10); RED CELL DISTRIBUTION WIDTH 13.9 % (11.5-14.5); WHITE BLOOD COUNT 5.6 X10'3 (4.5-11.0)
[2019-08-04 13:57] LABS: CLARITY,URINE CLEAR (Clear); COLOR,URINE STRAW (Yellow); GLUCOSE, URINE NEGATIVE (Neg); KETONES,URINE NEGATIVE (Neg); LEUKOCYTE ESTERASE ,URINE NEGATIVE (Neg); NITRITES, URINE NEGATIVE (Neg); OCCULT BLOOD,URINE TRACE-INTACT (Neg); PROTEIN,URINE TRACE mg/dl (Neg); UROBILINOGEN,URINE 0.2 E.U/dL (0.2-1.0)
[2019-08-04 13:59] LABS: UA COLLECTION TYPE VOIDED
[2019-08-04 14:05] LABS: MUCUS STRANDS NONE SEEN /LPF (Neg); SQUAMOUS EPITHELIAL CELL,UR FEW /LPF (FEW)
[2019-08-04 14:06] LABS: BACTERIA,URINE NONE SEEN /HPF (Neg); FINE GRANULAR CAST 0-3 /LPF (NEGATIVE); RBC,URINE NONE SEEN /HPF (0-2); WBC,URINE NONE SEEN /HPF (0-4)
[2019-08-04 14:20] LABS: ALANINE AMINOTRANSFERASE 156 U/L (12-78); ALBUMIN 3.8 G/DL (3.4-5.0); ALBUMIN/GLOBULIN RATIO 1.3 (1.1-1.5); ALKALINE PHOSPHATASE 68 IU/L (46-116); ANION GAP 11 (8-16); ASPARTATE AMINO TRANSFERASE 68 U/L (10-37); BILIRUBIN,TOTAL 0.4 MG/DL (0.1-1.0); BLOOD UREA NITROGEN 25 MG/DL (7-18); BUN/CREATININE RATIO 17.9 (5.4-32.0); CALCIUM 8.7 MG/DL (8.5-10.1); CHLORIDE 114 MMOL/L (99-107); CHOL/HDL RATIO 1.6 (0.00-4.99); CHOLESTEROL 174 MG/DL (0-200); GLUCOSE 115 MG/DL (70-104); HDL CHOLESTEROL 110 MG/DL (35-60); LDL CHOLESTEROL 42 MG/DL (50-100); SODIUM 144 MMOL/L (135-145); TOTAL CARBON DIOXIDE 19.2 MMOL/L (24-32); TOTAL PROTEIN 6.7 G/DL (6.4-8.2); TRIGLYCERIDES 121 MG/DL (20-135); eGFR 50 ML/MIN
== END 2019-08-04 23:59 | disposition home or self-care (01) ==
LOC: LAB 13:14
PROVIDERS: ATTEND Family Medicine
DX: M25.561 Pain in right knee (principal)
CPT/HCPCS: 36415; 80053; 80061; 81001; 84439; 84443; 85025

== ENCOUNTER 2019-12-01 12:39 | Outpatient (CLI) | payer OTHER, MEDICARE | END 2019-12-01 23:59 | disposition home or self-care (01) | LOC: CARD DIAG 12:39 | PROVIDERS: ATTEND Physician Assistant | DX: I08.8 Other rheumatic multiple valve diseases (principal); I48.0 Paroxysmal atrial fibrillation | CPT/HCPCS: 93306 ==

== ENCOUNTER 2019-12-23 09:38 | Emergency (ER) | payer OTHER, MEDICARE ==
[~2019-12-23] VITALS: Ht 177.8 cm; Wt 90.0 kg
[2019-12-23 11:37] LABS: BASOPHILS % (AUTO) 0.3 % (0-1); EOSINOPHILS % (AUTO) 0.7 % (0-6); HEMATOCRIT 39.2 % (42.0-52.0); LYMPHOCYTES # (AUTO) 0.8 X10'3 (1.1-4.8); LYMPHOCYTES % (AUTO) 14.1 % (21-51); MEAN CORPUSCULAR HEMOGLOBIN 33.3 PG (27.0-31.0); MEAN CORPUSCULAR HGB CONC 33.2 g/dL (33.0-36.5); MEAN CORPUSCULAR VOLUME 100.4 FL (78-98); MONOCYTES # (AUTO) 0.4 X10'3 (0-0.9); MONOCYTES % (AUTO) 6.2 % (2-12); NEUTROPHILS # (AUTO) 4.7 X10'3 (1.8-7.7); NEUTROPHILS % (AUTO) 78.7 % (42-75); PLATELET COUNT 179 X10'3 (140-440); RED CELL DISTRIBUTION WIDTH 13.7 % (11.5-14.5); WHITE BLOOD COUNT 5.9 X10'3 (4.5-11.0)
[2019-12-23 11:43] LABS: ALBUMIN 3.9 G/DL (3.4-5.0); ANION GAP 11 (8-16); BLOOD UREA NITROGEN 21 MG/DL (7-18); BUN/CREATININE RATIO 12.8 (5.4-32.0); CALCIUM 8.6 MG/DL (8.5-10.1); CHLORIDE 113 MMOL/L (99-107); CREATININE 1.64 MG/DL (0.60-1.10); GLUCOSE 143 MG/DL (70-104); POTASSIUM 4.2 MMOL/L (3.5-5.1); SODIUM 141 MMOL/L (135-145); TOTAL CARBON DIOXIDE 17.2 MMOL/L (24-32); eGFR 41 ML/MIN
[2019-12-23 11:44] LABS: C-REACTIVE PROTEIN < 0.05 MG/DL (0.0-0.5)
[2019-12-23 12:56] VITALS: BP 123/70
== END 2019-12-23 13:02 | disposition home or self-care (01) ==
LOC: ER 09:39
DX: L08.9 Local infection of the skin and subcutaneous tissue, unspecified (principal); M79.661 Pain in right lower leg; N17.9 Acute kidney failure, unspecified; I48.91 Unspecified atrial fibrillation; I25.10 Atherosclerotic heart disease of native coronary artery without angina pectoris; G89.29 Other chronic pain; F41.9 Anxiety disorder, unspecified; F32.9 Major depressive disorder, single episode, unspecified; Z90.49 Acquired absence of other specified parts of digestive tract; Z98.890 Other specified postprocedural states; Z72.89 Other problems related to lifestyle; Z88.8 Allergy status to other drugs, medicaments and biological substances; Z88.5 Allergy status to narcotic agent; Z79.82 Long term (current) use of aspirin; Z79.899 Other long term (current) drug therapy
CPT/HCPCS: 36415; 80048; 85025; 86140; 93971; 99284

== ENCOUNTER 2020-02-13 05:48 | Day surgery (SDC) | payer BC, MEDICARE ==
[2020-02-03 17:05] LABS: BASOPHILS % (AUTO) 0.5 % (0-1); CLARITY,URINE CLEAR (Clear); COLOR,URINE YELLOW (Yellow); EOSINOPHILS # (AUTO) 0.1 X10'3 (0-0.9); EOSINOPHILS % (AUTO) 1.9 % (0-6); GLUCOSE, URINE NEGATIVE (Neg); KETONES,URINE NEGATIVE (Neg); LEUKOCYTE ESTERASE ,URINE NEGATIVE (Neg); LYMPHOCYTES # (AUTO) 1.3 X10'3 (1.1-4.8); LYMPHOCYTES % (AUTO) 21.9 % (21-51); MEAN CORPUSCULAR HEMOGLOBIN 34.1 PG (27.0-31.0); MEAN CORPUSCULAR HGB CONC 33.5 g/dL (33.0-36.5); MEAN CORPUSCULAR VOLUME 101.9 FL (78-98); MEAN PLATELET VOLUME 7.9 FL (7.4-10.4); MONOCYTES # (AUTO) 0.5 X10'3 (0-0.9); MONOCYTES % (AUTO) 8.6 % (2-12); NEUTROPHILS % (AUTO) 67.1 % (42-75); NITRITES, URINE NEGATIVE (Neg); OCCULT BLOOD,URINE NEGATIVE (Neg); PH,URINE 5.5 (4.8-8.0); PRE OP HEMATOCRIT 38.5 % (42.0-52.0); PRE OP HEMOGLOBIN 12.9 g/dL (14.0-17.9); PRE OP PLATELET COUNT 186 X10'3 (140-440); PROTEIN,URINE NEGATIVE (Neg); RED BLOOD COUNT 3.78 X10'6 (4.70-6.10); RED CELL DISTRIBUTION WIDTH 14.3 % (11.5-14.5); UROBILINOGEN,URINE 0.2 E.U/dL (0.2-1.0)
[2020-02-03 17:06] LABS: UA COLLECTION TYPE VOIDED
[2020-02-03 17:20] LABS: ALBUMIN 4.1 G/DL (3.4-5.0); ALBUMIN/GLOBULIN RATIO 1.3 (1.1-1.5); ALKALINE PHOSPHATASE 67 IU/L (46-116); BLOOD UREA NITROGEN 20 MG/DL (7-18); BUN/CREATININE RATIO 12.2 (5.4-32.0); CALCIUM 8.4 MG/DL (8.5-10.1); CHLORIDE 105 MMOL/L (99-107); CREATININE 1.64 MG/DL (0.60-1.10); PRE OP ANION GAP 12 (8-16); PRE OP AST 68 U/L (10-37); PRE OP BILIRUB, TOTAL 0.8 MG/DL (0.0-1.0); PRE OP GLUCOSE 160 MG/DL (70-104); PRE OP POTASSIUM 3.9 MMOL/L (3.4-5.1); PRE OP SODIUM 137 MMOL/L (135-145); TOTAL CARBON DIOXIDE 20.4 MMOL/L (24-32); TOTAL PROTEIN 7.3 G/DL (6.4-8.2); eGFR 41 ML/MIN
[2020-02-03 17:22] LABS: PRE OP ALT 103 U/L (30-65)
[2020-02-13] VITALS (9 sets, daily range): BP systolic 116–128; BP diastolic 65–82
[~2020-02-13] VITALS: Ht 180.3 cm; Wt 70.1 kg
[~2020-02-13 05:48] MED LIST changes: -CICL12.5 NS; -CYAN10006 IM; -DIPH1TAB PO; -FURO80TA87 PO; -META800T87 PO; -POTA20TA19 PO; +PRE5T PO; -THIA100T66 PO; +albuterol 2.5 MG/3 ML nebule NEB ONE; +famotidine 20mg tablet PO ONE; +ringers solution, lacted 1,000 ML IV SCH
[2020-02-13] MEDS ORDERED: ceFAZolin 2gm in dextrose, iso 50 ML IV ONE (06:00)
[2020-02-13] MEDS ORDERED: bacitracin 15gm ointment TP ONE (06:35)
[2020-02-13] MEDS ORDERED: fentaNYL /PF 50mcg/ml 5ml ampule ONE (06:57)
[2020-02-13] MEDS ORDERED: sevoflurane 250ml liquid IH ONE (07:05)
[2020-02-13] MEDS ORDERED: ringers solution, lacted 1,000 ML IV SCH (07:26)
[2020-02-13] MEDS ORDERED: ondansetron/PF 4mg/2ml inj IV PRN (07:30)
[2020-02-13] MEDS ORDERED: morphine 2 MG/ML inj. syringe IV PRN (07:30)
[2020-02-13] MEDS ORDERED: HYDROmorphone inj. 0.5 MG/0.5 ML DISP.SYRIN IV PRN (07:30)
[2020-02-13] MEDS ORDERED: BUPIVAcaine/PF 2.5 mg/ml (0.25%) 30ml vial ONE (07:35)
--- NOTE | 2020-02-13 08:16 | NUR ---
Received from OR via , accompanied by Anesthesiologist DR LINN and report given by Anesthesiolgist. AWAKENS TO VOICE. VITALS STABLE. DRESSING WITH SM SPOT OF RED DRAINAGE. RILEY PAIN.
[2020-02-13] MEDS ORDERED: LIDOcaine 2% (20mg/ml) 5ml vial ONE (08:40)
[2020-02-13] MEDS ORDERED: propofol inj 20 ML IV ONE (08:40)
[2020-02-13] MEDS ORDERED: ondansetron/PF 4mg/2ml inj ONE (08:40)
[2020-02-13] MEDS ORDERED: hydrocortisone sod succ/PF 100mg/2ml inj. ONE (08:40)
[2020-02-13] MEDS ORDERED: rocuronium 10mg/ml inj IV ONE (08:40)
[2020-02-13] MEDS ORDERED: esmolol inj. 10 ML IV ONE (08:40)
[2020-02-13] MEDS ORDERED: neostigmine methylsulfate 1 MG/ML 10ml vial ONE (08:40)
[2020-02-13] MEDS ORDERED: glycopyrrolate 0.2mg/ml inj ONE (08:40)
[2020-02-13] MEDS ORDERED: ePHEDrine 50MG/ML INJ. ONE (08:40)
--- NOTE | 2020-02-13 09:16 | NUR ---
AWAKE AND ORIENTED. VITALS STABLE. DRESIING DI. RILEY PAIN. HOME WITH HIS AT THIS TIME.
== END 2020-02-13 09:16 | disposition home or self-care (01) ==
LOC: PAS 05:48
PROVIDERS: ATTEND Podiatrist Foot & Ankle Surgery
DX: M20.21 Hallux rigidus, right foot (principal); M19.071 Primary osteoarthritis, right ankle and foot; I48.91 Unspecified atrial fibrillation; J43.9 Emphysema, unspecified; F41.9 Anxiety disorder, unspecified; F32.9 Major depressive disorder, single episode, unspecified; K21.9 Gastro-esophageal reflux disease without esophagitis; D64.9 Anemia, unspecified; I12.9 Hypertensive chronic kidney disease with stage 1 through stage 4 chronic kidney disease, or unspecified chronic kidney disease; N18.9 Chronic kidney disease, unspecified; Z79.899 Other long term (current) drug therapy; Z11.59 Encounter for screening for other viral diseases; Z88.0 Allergy status to penicillin; Z87.891 Personal history of nicotine dependence; Z72.89 Other problems related to lifestyle; Z90.49 Acquired absence of other specified parts of digestive tract; Z98.890 Other specified postprocedural states; Z88.5 Allergy status to narcotic agent; Z88.8 Allergy status to other drugs, medicaments and biological substances; Z91.09 Other allergy status, other than to drugs and biological substances
CPT/HCPCS: 28750; 36415; 73620; 76000; 80053; 81003; 82948; 85025; 94640; A6223; C1713; J1720; J2001; J2405; J2704; J2710; J3010; J3490; J7120; U0003; A4618; A6449; A7000

== ENCOUNTER 2020-03-16 06:01 | Emergency (ER) | payer BC, MEDICARE ==
[~2020-03-16] VITALS: Ht 177.8 cm; Wt 75.0 kg
[~2020-03-16 06:01] MED LIST changes: -albuterol 2.5 MG/3 ML nebule NEB ONE; -famotidine 20mg tablet PO ONE; -ringers solution, lacted 1,000 ML IV SCH
[2020-03-16 06:38] VITALS: BP 133/75
[2020-03-16] MEDS ORDERED: CELE-193 PO (07:53)
[2020-03-16] MEDS ORDERED: ketorolac trometh inj. 60 MG/2 ML VIAL IM ONE (07:55)
--- NOTE | 2020-03-17 09:39 | NUR ---
Patients , Bella, called regarding Prescription not being sent into pharmacy as stated. Asked for patients call back number to look into the problem. [phone] (Bella). I spoke with Dr. Ledesma who stated that she did sent it electronically,but sometime they don't know where to look and think that its via fax. Spoke with Alie Stevens on [facility] pharmacist, who stated that he never received the prescription. Gave verbal for Celebrex 100 mg capsules PO BID #20 capsules with no refills.
--- NOTE | 2020-03-17 10:05 | NUR ---
I called patients back and notified her that prescription was called in and would be ready this afternoon per pharmacist.
== END 2020-03-16 08:32 | disposition home or self-care (01) ==
LOC: ER 06:02
DX: M25.552 Pain in left hip (principal); I48.91 Unspecified atrial fibrillation; I25.10 Atherosclerotic heart disease of native coronary artery without angina pectoris; I10 Essential (primary) hypertension; G89.29 Other chronic pain; F41.9 Anxiety disorder, unspecified; F32.9 Major depressive disorder, single episode, unspecified; Z90.49 Acquired absence of other specified parts of digestive tract; Z98.890 Other specified postprocedural states; Z72.89 Other problems related to lifestyle; Z88.1 Allergy status to other antibiotic agents; Z88.8 Allergy status to other drugs, medicaments and biological substances; Z79.899 Other long term (current) drug therapy; Z88.5 Allergy status to narcotic agent
CPT/HCPCS: 96372; 99283; J1885

== ENCOUNTER 2020-04-03 09:02 | Emergency (ER) | payer BC, MEDICARE ==
[~2020-04-03] VITALS: Ht 177.8 cm; Wt 75.0 kg
[~2020-04-03 09:02] MED LIST changes: +CELE-193 PO
--- NOTE | 2020-04-03 09:46 | NUR ---
awaiting for ED .
[2020-04-03 10:54] LABS: BASOPHILS % (AUTO) 0.5 % (0-1); EOSINOPHILS # (AUTO) 0.1 X10'3 (0-0.9); EOSINOPHILS % (AUTO) 2.3 % (0-6); HEMATOCRIT 34.1 % (42.0-52.0); HEMOGLOBIN 11.9 g/dl (14.0-17.9); LYMPHOCYTES # (AUTO) 1.2 X10'3 (1.1-4.8); LYMPHOCYTES % (AUTO) 24.9 % (21-51); MEAN CORPUSCULAR HEMOGLOBIN 34.5 PG (27.0-31.0); MEAN CORPUSCULAR HGB CONC 34.9 g/dL (33.0-36.5); MEAN CORPUSCULAR VOLUME 98.8 FL (78-98); MEAN PLATELET VOLUME 7.8 FL (7.4-10.4); MONOCYTES # (AUTO) 0.5 X10'3 (0-0.9); MONOCYTES % (AUTO) 9.7 % (2-12); NEUTROPHILS # (AUTO) 3.1 X10'3 (1.8-7.7); NEUTROPHILS % (AUTO) 62.6 % (42-75); PLATELET COUNT 198 X10'3 (140-440); RED BLOOD COUNT 3.45 X10'6 (4.70-6.10); RED CELL DISTRIBUTION WIDTH 13.6 % (11.5-14.5); WHITE BLOOD COUNT 4.9 X10'3 (4.5-11.0)
[2020-04-03 11:07] LABS: PARTIAL THROMBOPLASTIN TIME 23 SECONDS (22-32)
[2020-04-03 11:12] LABS: ALANINE AMINOTRANSFERASE 67 U/L (12-78); ALBUMIN 3.7 G/DL (3.4-5.0); ALBUMIN/GLOBULIN RATIO 1.2 (1.1-1.5); ALKALINE PHOSPHATASE 71 IU/L (46-116); ANION GAP 10 (8-16); ASPARTATE AMINO TRANSFERASE 36 U/L (10-37); BILIRUBIN,TOTAL 0.3 MG/DL (0.1-1.0); BLOOD UREA NITROGEN 27 MG/DL (7-18); BUN/CREATININE RATIO 22.7 (5.4-32.0); CALCIUM 8.8 MG/DL (8.5-10.1); CHLORIDE 107 MMOL/L (99-107); CREATININE 1.19 MG/DL (0.60-1.10); GLUCOSE 119 MG/DL (70-104); POTASSIUM 4.3 MMOL/L (3.5-5.1); SODIUM 136 MMOL/L (135-145); TOTAL CARBON DIOXIDE 18.7 MMOL/L (24-32); TOTAL PROTEIN 6.7 G/DL (6.4-8.2); eGFR 60 ML/MIN
[2020-04-03 11:16] LABS: MAGNESIUM 1.8 MG/DL (1.5-2.4)
[2020-04-03] MEDS ORDERED: CLIN-97 PO (11:39)
[2020-04-03 11:50] VITALS: BP 129/73
== END 2020-04-03 11:54 | disposition home or self-care (01) ==
LOC: ER 09:03
DX: R22.41 Localized swelling, mass and lump, right lower limb (principal); M79.671 Pain in right foot; I48.91 Unspecified atrial fibrillation; I25.10 Atherosclerotic heart disease of native coronary artery without angina pectoris; I10 Essential (primary) hypertension; G89.29 Other chronic pain; F41.9 Anxiety disorder, unspecified; F32.9 Major depressive disorder, single episode, unspecified; Z90.49 Acquired absence of other specified parts of digestive tract; Z98.890 Other specified postprocedural states; Z88.0 Allergy status to penicillin; Z88.8 Allergy status to other drugs, medicaments and biological substances; Z91.048 Other nonmedicinal substance allergy status; Z79.82 Long term (current) use of aspirin; Z79.899 Other long term (current) drug therapy
CPT/HCPCS: 36415; 80053; 83735; 83880; 85025; 85610; 85730; 99283

== ENCOUNTER 2020-04-05 15:59 | Outpatient (CLI) | payer BC, MEDICARE ==
[~2020-04-05 15:59] MED LIST changes: +CLIN-97 PO
== END 2020-04-05 23:59 | disposition home or self-care (01) ==
LOC: 64 CT 15:59
PROVIDERS: ATTEND Podiatrist Foot & Ankle Surgery
DX: S92.314A Nondisplaced fracture of first metatarsal bone, right foot, initial encounter for closed fracture (principal); M20.21 Hallux rigidus, right foot; X58.XXXA Exposure to other specified factors, initial encounter; Y93.89 Activity, other specified; Y92.89 Other specified places as the place of occurrence of the external cause; Y99.8 Other external cause status
CPT/HCPCS: 73700

== ENCOUNTER 2020-04-16 10:46 | Day surgery (SDC) | payer BC, MEDICARE ==
--- NOTE | 2020-04-14 15:24 | NUR ---
COVID SCREEN QUESTIONS COMPLETE. NEG FOR ALL QUESTIONS.
[2020-04-16] VITALS (8 sets, daily range): BP systolic 120–147; BP diastolic 71–79
[~2020-04-16] VITALS: Ht 180.3 cm; Wt 73.2 kg
[~2020-04-16 10:46] MED LIST changes: -ASPI-611 PO; -CELE-193 PO; -CLIN-97 PO; +PROP225C8 PO; -PROP225C9 PO; +famotidine 20mg tablet PO ONE; +ringers solution, lacted 1,000 ML IV SCH; +vancomycin 1,500 MG in NS 300ml IV soln IV ONE
--- NOTE | 2020-04-16 11:41 | NUR ---
VERBAL COVID SCREEN NEG FOR ANY S/S OF INFECTION
[2020-04-16] MEDS ORDERED: sevoflurane 250ml liquid IH ONE (13:34)
[2020-04-16] MEDS ORDERED: hydrocortisone sod succ/PF 100mg/2ml inj. IV ONE (13:40)
[2020-04-16] MEDS ORDERED: fentaNYL/PF 50MCG/1 ML 2ML syringe ONE (13:44)
[2020-04-16] MEDS ORDERED: bacitracin 15gm ointment TP ONE (14:09)
[2020-04-16] MEDS ORDERED: propofol inj 20 ML IV ONE (14:27)
[2020-04-16] MEDS ORDERED: midazolam 2 mg/2 ml injection ONE (14:27)
[2020-04-16] MEDS ORDERED: ePHEDrine 50MG/ML INJ. ONE (14:27)
[2020-04-16] MEDS ORDERED: ceFAZolin 1000mg inj ONE ×3 (14:27→14:28)
[2020-04-16] MEDS ORDERED: ROPIVAcaine 0.5% (5mg/ml) 30ml vial ONE (14:28)
[2020-04-16] MEDS ORDERED: LIDOcaine 2% (20mg/ml) 5ml vial ONE (14:29)
[2020-04-16] MEDS ORDERED: 0.9 % SODIUM CHLORIDE 10 ML VIAL ONE ×3 (14:29)
[2020-04-16] MEDS ORDERED: dexamethasone sod phosphate 4mg/ml inj. ONE (14:29)
[2020-04-16] MEDS ORDERED: ondansetron/PF 4mg/2ml inj ONE (14:29)
[2020-04-16] MEDS ORDERED: meperidine/PF 25mg/ml syringe IV PRN ×3 (16:00)
[2020-04-16] MEDS ORDERED: proCHLORperazine 10 MG/2 ml inj IV PRN (16:00)
[2020-04-16] MEDS ORDERED: acetaminophen 1,000mg/100ml IV 100 ML IV PRN (16:00)
[2020-04-16] MEDS ORDERED: ringers solution, lacted 1,000 ML IV SCH (16:00)
[2020-04-16] MEDS ORDERED: morphine 2 MG/ML inj. syringe IV PRN (16:00)
[2020-04-16] MEDS ORDERED: morphine 4 MG/ML inj SYRINge IV PRN (16:00)
[2020-04-16] MEDS ORDERED: ondansetron/PF 4mg/2ml inj IV PRN (16:00)
--- NOTE | 2020-04-16 16:00 | NUR ---
Received from OR via BED, accompanied by Anesthesiologist DR HERNANDEZ--- and report given by Anesthesiolgist. PATIENT A&OX4, DENIES PAIN, V/S WNL, NEUROVASCULAR CHECKS INTACT, 20G PIV RUE, SCD ON, SPLINT DRESSING TO RIGHT ANKLE CDI
--- NOTE | 2020-04-16 17:00 | NUR ---
PATIENT A&OX4, DENIES PAIN, V/S WNL, NEUROVASCULAR CHECKS INTACT, 20G PIV RUE D/C, SCD OFF, SPLINT DRESSING TO RIGHT ANKLE CDI. PATIENT HAD A VERY SMALL SPOT OF BREAK THROUGH DRAINAGE NEAR TOE AREA WHICH WAS REINFORCED. HE WAS INSTRUCTED TO ICE AND ELEVATE ORDERED BY DR CALLAWAY. DRAINAGE WAS NOT EXCESSIVE AND I DISCUSSED THIS WITH RAJNI HIS WHO WORKS HERE RN SO SHE WAS AWARE TO HAVE HIM ICE AND ELEVATE THAT EXTREMITY AT HOME. I HAVE REVIEWED D/C INSTRUCTIONS WITH PATIENT AND FAMILY AND THEY HAVE VERBALIZED UNDERSTANDING. PATIENT D/C HOME WITH ALL BELONGINGS AND FAMILY GAVE TRANSPORT HOME.
== END 2020-04-16 17:00 | disposition home or self-care (01) ==
LOC: PAS 10:46
PROVIDERS: ATTEND Podiatrist Foot & Ankle Surgery
DX: S92.311A Displaced fracture of first metatarsal bone, right foot, initial encounter for closed fracture (principal); M96.0 Pseudarthrosis after fusion or arthrodesis; G89.18 Other acute postprocedural pain; Z87.891 Personal history of nicotine dependence; J43.9 Emphysema, unspecified; I10 Essential (primary) hypertension; I48.91 Unspecified atrial fibrillation; K21.9 Gastro-esophageal reflux disease without esophagitis; D64.9 Anemia, unspecified; F41.9 Anxiety disorder, unspecified; F32.9 Major depressive disorder, single episode, unspecified; Z86.14 Personal history of Methicillin resistant Staphylococcus aureus infection; Z88.0 Allergy status to penicillin; Z88.1 Allergy status to other antibiotic agents; Z88.8 Allergy status to other drugs, medicaments and biological substances; Z91.09 Other allergy status, other than to drugs and biological substances; Z79.899 Other long term (current) drug therapy; Z98.890 Other specified postprocedural states; Z79.82 Long term (current) use of aspirin; Z72.89 Other problems related to lifestyle; Z90.49 Acquired absence of other specified parts of digestive tract; Y83.8 Other surgical procedures as the cause of abnormal reaction of the patient, or of later complication, without mention of misadventure at the time of the procedure; Y82.8 Other medical devices associated with adverse incidents; X58.XXXA Exposure to other specified factors, initial encounter; Y93.89 Activity, other specified; Y92.89 Other specified places as the place of occurrence of the external cause; Y99.8 Other external cause status
CPT/HCPCS: 20680; 20900; 28485; 28750; 64445; 64447; 73620; 76000; 76942; 82948; A6223; C1713; J0131; J0690; J1100; J2001; J2175; J2250; J2270; J2405; J2704; J3010; J3370; J7040; A4215; A4618; A6253; A6449; A7000; J2795; J7120

== ENCOUNTER → 2020-05-01 | Emergency (ER) | payer BC, MEDICARE ==
[~2020-05-01] VITALS: Ht 177.8 cm; Wt 72.7 kg
[~2020-05-01] MED LIST changes: -famotidine 20mg tablet PO ONE; -ringers solution, lacted 1,000 ML IV SCH; -vancomycin 1,500 MG in NS 300ml IV soln IV ONE
[2020-05-01 09:56] VITALS: BP 125/58
--- NOTE | 2020-05-01 11:05 | NUR ---
PT REFUSING TO SHUT DOOR AND FOLLOW COVID PRECAUTIONS. MD AND CHARGE NURSE NOTIFIED AND SAID PT COULD GO BACK [facility] FOR HIS WORKUP.
== END | disposition home or self-care (01) ==
LOC: ER 09:32
DX: R05 Cough (principal); R07.89 Other chest pain; Z20.828 Contact with and (suspected) exposure to other viral communicable diseases
CPT/HCPCS: 36415; 99282

== ENCOUNTER 2020-05-12 15:17 | Outpatient (CLI) | payer BC, MEDICARE | END 2020-05-12 23:59 | disposition home or self-care (01) | LOC: RAD 15:17 | PROVIDERS: ATTEND Family Medicine | DX: R06.02 Shortness of breath (principal); M81.0 Age-related osteoporosis without current pathological fracture | CPT/HCPCS: 71046 ==

== ENCOUNTER 2020-05-24 15:26 | Outpatient (CLI) | payer BC, MEDICARE | END 2020-05-24 23:59 | disposition home or self-care (01) | LOC: RAD 15:26 | PROVIDERS: ATTEND Family Medicine | DX: R07.9 Chest pain, unspecified (principal) | CPT/HCPCS: 71046 ==

== ENCOUNTER 2020-06-17 15:00 | Outpatient (CLI) | payer BC, MEDICARE | END 2020-06-17 23:59 | disposition home or self-care (01) | LOC: VAS 15:00 | PROVIDERS: ATTEND Family Medicine | DX: M79.661 Pain in right lower leg (principal) | CPT/HCPCS: 93971 ==

== ENCOUNTER 2020-07-02 07:53 | Day surgery (SDC) | payer BC, MEDICARE ==
[~2020-07-02] VITALS: Ht 180.3 cm; Wt 71.4 kg
[2020-07-02 08:06] VITALS: BP 131/64
[2020-07-02] MEDS ORDERED: OLME20TA14 PO (08:20)
[2020-07-02] MEDS ORDERED: PROP325C5 PO (08:21)
[2020-07-02] MEDS ORDERED: FURO-149 PO (08:23)
[2020-07-02] MEDS ORDERED: POTA-82 PO (08:24)
[2020-07-02] MEDS ORDERED: ASPI-611 PO (08:25)
[2020-07-02] MEDS ORDERED: HYDR-4353 PO (08:25)
[2020-07-02] MEDS ORDERED: META800T87 PO (08:26)
[2020-07-02] MEDS ORDERED: DIPH-186 PO (08:26)
[2020-07-02] MEDS ORDERED: OMEP40CA13 PO (08:27)
[2020-07-02] MEDS ORDERED: fentaNYL/PF 50MCG/1 ML 2ML syringe ONE (09:27)
[2020-07-02] MEDS ORDERED: MIDAZolam 5mg/5ml vial ONE (09:27)
[2020-07-02 10:20] VITALS: BP 102/62
[2020-07-02 10:30] VITALS: BP 102/60
[2020-07-02 10:40] VITALS: BP 106/68
[2020-07-02 10:50] VITALS: BP 105/57
== END 2020-07-02 11:00 | disposition home or self-care (01) ==
LOC: GI LAB 07:53
PROVIDERS: ATTEND Specialist
DX: R19.5 Other fecal abnormalities (principal); I10 Essential (primary) hypertension; Z86.010 Personal history of colon polyps; Z90.49 Acquired absence of other specified parts of digestive tract; Z98.0 Intestinal bypass and anastomosis status; Z79.899 Other long term (current) drug therapy
CPT/HCPCS: 45378; 99152; J2250; J3010; J7040; A4620

== ENCOUNTER 2020-07-15 10:09 | Emergency (ER) | payer BC, MEDICARE ==
[~2020-07-15] VITALS: Ht 177.8 cm; Wt 72.1 kg
[~2020-07-15 10:09] MED LIST changes: +ASPI-611 PO; +DIPH-186 PO; +FURO-149 PO; -LORA1TAB PO; +META800T87 PO; +OLME20TA14 PO; -OLME5TAB3 PO; -OMEP-84 PO; +OMEP40CA13 PO; +POTA-82 PO; -PROP225C8 PO; +PROP325C5 PO
[2020-07-15] MEDS ORDERED: ketorolac tromethamine 15mg/ml inj. IM ONE (11:45)
[2020-07-15 12:27] VITALS: BP 106/47
== END 2020-07-15 12:29 | disposition home or self-care (01) ==
LOC: ER 10:10
DX: S39.012A Strain of muscle, fascia and tendon of lower back, initial encounter (principal); G89.29 Other chronic pain; I48.91 Unspecified atrial fibrillation; I25.10 Atherosclerotic heart disease of native coronary artery without angina pectoris; I10 Essential (primary) hypertension; F41.9 Anxiety disorder, unspecified; F32.9 Major depressive disorder, single episode, unspecified; Z87.01 Personal history of pneumonia (recurrent); Z87.11 Personal history of peptic ulcer disease; Z90.89 Acquired absence of other organs; Z90.49 Acquired absence of other specified parts of digestive tract; Z98.890 Other specified postprocedural states; Z72.89 Other problems related to lifestyle; Z88.0 Allergy status to penicillin; Z88.8 Allergy status to other drugs, medicaments and biological substances; Z88.5 Allergy status to narcotic agent; Z88.1 Allergy status to other antibiotic agents; Z79.82 Long term (current) use of aspirin; Z79.899 Other long term (current) drug therapy; X58.XXXA Exposure to other specified factors, initial encounter; Y93.89 Activity, other specified; Y92.89 Other specified places as the place of occurrence of the external cause; Y99.8 Other external cause status
CPT/HCPCS: 96372; 99284; J1885; 99283

== ENCOUNTER 2020-09-17 10:33 | Emergency (ER) | payer BC, MEDICARE ==
[~2020-09-17] VITALS: Ht 180.3 cm; Wt 71.8 kg
[~2020-09-17 10:33] MED LIST changes: -FURO-149 PO; -POTA-82 PO; -PROP325C5 PO
[2020-09-17] MEDS ORDERED: acetaminophen 325mg tablet PO ONE (11:15)
[2020-09-17] MEDS ORDERED: orphenadrine citrate 60mg/2ml inj. IM ONE (11:15)
[2020-09-17] MEDS ORDERED: ACET-1025 PO (11:56)
[2020-09-17 13:00] VITALS: BP 124/72
== END 2020-09-17 15:13 | disposition home or self-care (01) ==
LOC: ER 10:36
DX: S32.020A Wedge compression fracture of second lumbar vertebra, initial encounter for closed fracture (principal); M54.42 Lumbago with sciatica, left side; G89.29 Other chronic pain; I48.91 Unspecified atrial fibrillation; I25.10 Atherosclerotic heart disease of native coronary artery without angina pectoris; I10 Essential (primary) hypertension; F32.9 Major depressive disorder, single episode, unspecified; F41.9 Anxiety disorder, unspecified; Z87.440 Personal history of urinary (tract) infections; Z87.11 Personal history of peptic ulcer disease; Z90.89 Acquired absence of other organs; Z90.49 Acquired absence of other specified parts of digestive tract; Z98.890 Other specified postprocedural states; Z72.89 Other problems related to lifestyle; Z88.0 Allergy status to penicillin; Z88.8 Allergy status to other drugs, medicaments and biological substances; Z88.5 Allergy status to narcotic agent; Z79.82 Long term (current) use of aspirin; Z79.899 Other long term (current) drug therapy; W01.0XXA Fall on same level from slipping, tripping and stumbling without subsequent striking against object, initial encounter; Y93.89 Activity, other specified; Y92.89 Other specified places as the place of occurrence of the external cause; Y99.8 Other external cause status
CPT/HCPCS: 72131; 96372; 99284; J2360

== ENCOUNTER 2020-09-19 16:10 | Emergency (ER) | payer BC, MEDICARE ==
[~2020-09-19] VITALS: Ht 180.3 cm; Wt 71.8 kg
[~2020-09-19 16:10] MED LIST changes: +ACET-1025 PO
[2020-09-19] MEDS ORDERED: oxyCODONE IR 5mg (immed. release) tablet PO ONE (17:10)
[2020-09-19] MEDS ORDERED: acetaminophen 325mg tablet PO ONE (17:10)
[2020-09-19 17:28] LABS: BASOPHILS % (AUTO) 0.9 % (0-1); EOSINOPHILS % (AUTO) 0.9 % (0-6); HEMATOCRIT 35.6 % (42.0-52.0); LYMPHOCYTES # (AUTO) 0.7 X10'3 (1.1-4.8); LYMPHOCYTES % (AUTO) 19.6 % (21-51); MEAN CORPUSCULAR HEMOGLOBIN 32.9 PG (27.0-31.0); MEAN CORPUSCULAR HGB CONC 33.6 g/dL (33.0-36.5); MEAN CORPUSCULAR VOLUME 97.8 FL (78-98); MEAN PLATELET VOLUME 7.6 FL (7.4-10.4); MONOCYTES # (AUTO) 0.3 X10'3 (0-0.9); MONOCYTES % (AUTO) 8.8 % (2-12); NEUTROPHILS # (AUTO) 2.6 X10'3 (1.8-7.7); NEUTROPHILS % (AUTO) 69.8 % (42-75); PLATELET COUNT 184 X10'3 (140-440); RED BLOOD COUNT 3.64 X10'6 (4.70-6.10); RED CELL DISTRIBUTION WIDTH 13.4 % (11.5-14.5); WHITE BLOOD COUNT 3.7 X10'3 (4.5-11.0)
[2020-09-19 17:33] LABS: ALANINE AMINOTRANSFERASE 36 U/L (12-78); ALBUMIN 3.8 G/DL (3.4-5.0); ALBUMIN/GLOBULIN RATIO 1.2 (1.1-1.5); ALKALINE PHOSPHATASE 71 IU/L (46-116); ANION GAP 10 (8-16); ASPARTATE AMINO TRANSFERASE 37 U/L (10-37); BILIRUBIN,TOTAL 0.4 MG/DL (0.1-1.0); BLOOD UREA NITROGEN 12 MG/DL (7-18); BUN/CREATININE RATIO 10.2 (5.4-32.0); CHLORIDE 101 MMOL/L (99-107); CREATININE 1.18 MG/DL (0.60-1.10); GLUCOSE 139 MG/DL (70-104); SODIUM 134 MMOL/L (135-145); TOTAL CARBON DIOXIDE 22.8 MMOL/L (24-32); eGFR 60 ML/MIN
[2020-09-19 17:34] LABS: POTASSIUM 4.3 MMOL/L (3.5-5.1)
[2020-09-19 20:04] LABS: CLARITY,URINE CLEAR (Clear); COLOR,URINE YELLOW (Yellow); GLUCOSE, URINE NEGATIVE (Neg); KETONES,URINE NEGATIVE (Neg); LEUKOCYTE ESTERASE ,URINE NEGATIVE (Neg); NITRITES, URINE NEGATIVE (Neg); OCCULT BLOOD,URINE NEGATIVE (Neg); PROTEIN,URINE NEGATIVE (Neg); UROBILINOGEN,URINE 0.2 E.U/dL (0.2-1.0)
[2020-09-19] MEDS ORDERED: dexamethasone sod phosphate 10mg/ml inj IV STA (20:12)
[2020-09-19] MEDS ORDERED: LIDOcaine 2% 10ml TOPICAL JELLY (Urojet) TP ONE (20:15)
[2020-09-19 20:19] LABS: UA COLLECTION TYPE CLN CATCH MIDSTREAM
[2020-09-19 22:21] VITALS: BP 153/75
--- NOTE | 2020-09-19 22:46 | NUR ---
Patient transferred via EMS to [facility]. Report to Rozina CHERRY [facility]. Report to Hermilo Flooring Installer.
== END 2020-09-19 22:48 | disposition short-term general hospital (02) ==
LOC: ER 16:11
DX: S32.020D Wedge compression fracture of second lumbar vertebra, subsequent encounter for fracture with routine healing (principal); Z20.822 Contact with and (suspected) exposure to COVID-19; I25.10 Atherosclerotic heart disease of native coronary artery without angina pectoris; G89.29 Other chronic pain; I10 Essential (primary) hypertension; I48.91 Unspecified atrial fibrillation; Z88.0 Allergy status to penicillin; Z88.8 Allergy status to other drugs, medicaments and biological substances; Z79.82 Long term (current) use of aspirin; Z79.899 Other long term (current) drug therapy; Z87.01 Personal history of pneumonia (recurrent); Z87.11 Personal history of peptic ulcer disease; Z90.49 Acquired absence of other specified parts of digestive tract; W19.XXXD Unspecified fall, subsequent encounter
CPT/HCPCS: 36415; 72148; 80053; 81003; 85025; 87635; 96374; 99284; C9803; J1100; 51702

== ENCOUNTER 2020-10-22 11:46 | Outpatient (CLI) | payer BC, MEDICARE ==
[~2020-10-22 11:46] MED LIST changes: -ACET-1025 PO
== END 2020-10-22 23:59 | disposition home or self-care (01) ==
LOC: RAD 11:46
DX: S32.009A Unspecified fracture of unspecified lumbar vertebra, initial encounter for closed fracture (principal); M47.816 Spondylosis without myelopathy or radiculopathy, lumbar region; X58.XXXA Exposure to other specified factors, initial encounter; Y93.89 Activity, other specified; Y92.89 Other specified places as the place of occurrence of the external cause; Y99.8 Other external cause status
CPT/HCPCS: 72100

== ENCOUNTER 2020-11-17 08:34 | Outpatient (CLI) | payer BC, MEDICARE | END 2020-11-17 23:59 | disposition home or self-care (01) | LOC: 64 CT 08:34 | PROVIDERS: ATTEND Neurological Surgery | DX: M48.56XA Collapsed vertebra, not elsewhere classified, lumbar region, initial encounter for fracture (principal); M51.36 Other intervertebral disc degeneration, lumbar region | CPT/HCPCS: 72131 ==

== ENCOUNTER 2021-01-06 09:23 | Outpatient (CLI) | payer BC, MEDICARE ==
[~2021-01-06 09:23] MED LIST changes: -OMEP40CA13 PO; +OMEP40CA21 PO
== END 2021-01-06 23:59 | disposition home or self-care (01) ==
LOC: 64 CT 09:23
PROVIDERS: ATTEND Neurological Surgery
DX: M48.061 Spinal stenosis, lumbar region without neurogenic claudication (principal); M25.78 Osteophyte, vertebrae; M48.56XA Collapsed vertebra, not elsewhere classified, lumbar region, initial encounter for fracture; I70.0 Atherosclerosis of aorta
CPT/HCPCS: 72131

== ENCOUNTER 2021-03-27 09:06 | Emergency (ER) | payer BC, MEDICARE ==
[~2021-03-27] VITALS: Ht 165.1 cm; Wt 68.6 kg
[~2021-03-27 09:06] MED LIST changes: +ALBU8.5H17 INH; -ALBU8.5H8 INH
[2021-03-27 09:44] VITALS: BP 146/68
== END 2021-03-27 11:45 | disposition home or self-care (01) ==
LOC: ER 09:06
DX: M25.561 Pain in right knee (principal); R22.41 Localized swelling, mass and lump, right lower limb; I48.91 Unspecified atrial fibrillation; I25.10 Atherosclerotic heart disease of native coronary artery without angina pectoris; I10 Essential (primary) hypertension; G89.29 Other chronic pain; Z87.11 Personal history of peptic ulcer disease; Z87.01 Personal history of pneumonia (recurrent); Z90.49 Acquired absence of other specified parts of digestive tract; Z98.890 Other specified postprocedural states; Z72.89 Other problems related to lifestyle; Z79.899 Other long term (current) drug therapy; Z79.82 Long term (current) use of aspirin; Z88.0 Allergy status to penicillin; Z88.1 Allergy status to other antibiotic agents; Z91.048 Other nonmedicinal substance allergy status
CPT/HCPCS: 29505; 99283

== ENCOUNTER 2021-03-29 08:44 | Outpatient (CLI) | payer BC, MEDICARE | END 2021-03-29 23:59 | disposition home or self-care (01) | LOC: RAD 08:44 | PROVIDERS: ATTEND Family Medicine | DX: S83.231A Complex tear of medial meniscus, current injury, right knee, initial encounter (principal); S83.011A Lateral subluxation of right patella, initial encounter; M25.461 Effusion, right knee; M71.21 Synovial cyst of popliteal space [Baker], right knee; M62.58 Muscle wasting and atrophy, not elsewhere classified, other site; M94.261 Chondromalacia, right knee; X58.XXXA Exposure to other specified factors, initial encounter; Y93.89 Activity, other specified; Y92.89 Other specified places as the place of occurrence of the external cause; Y99.8 Other external cause status | CPT/HCPCS: 73721 ==

== ENCOUNTER 2021-05-17 03:05 | Emergency (ER) | payer BC, MEDICARE ==
[~2021-05-17] VITALS: Ht 177.8 cm; Wt 71.8 kg
[2021-05-17 03:12] VITALS: BP 141/82
[2021-05-17] MEDS ORDERED: TETanus/Pertussis (Acell)/Diphther VAC/PF (Tdap-Adult) 0.5ml syringe IMVAC ONE (07:25)
[2021-05-17] MEDS ORDERED: LIDOcaine 1% W/epiNEPHrine 1:200,000 10ml vial IJ ONE (07:25)
[2021-05-17] MEDS ORDERED: LIDOcaine 1% w/epiNEPHrine 1:200,000 30ml vial IJ ONE (07:40)
[2021-05-17] MEDS ORDERED: cephalexin 250mg capsule PO ONE (08:35)
[2021-05-17] MEDS ORDERED: CEPH250T PO (09:36)
== END 2021-05-17 09:53 | disposition home or self-care (01) ==
LOC: ER 03:07
DX: S41.112A Laceration without foreign body of left upper arm, initial encounter (principal); M25.561 Pain in right knee; I48.91 Unspecified atrial fibrillation; I25.10 Atherosclerotic heart disease of native coronary artery without angina pectoris; I10 Essential (primary) hypertension; G89.29 Other chronic pain; Z87.19 Personal history of other diseases of the digestive system; Z87.11 Personal history of peptic ulcer disease; Z90.49 Acquired absence of other specified parts of digestive tract; Z72.89 Other problems related to lifestyle; W01.0XXA Fall on same level from slipping, tripping and stumbling without subsequent striking against object, initial encounter; Z91.81 History of falling; Y93.89 Activity, other specified; Y92.89 Other specified places as the place of occurrence of the external cause; Y99.8 Other external cause status
CPT/HCPCS: 12002; 73502; 73564; 90471; 90715; 99284

== ENCOUNTER 2021-06-29 13:24 | Day surgery (SDC) | payer BC, MEDICARE ==
[2021-06-06 14:50] LABS: CLARITY,URINE SLIGHTLY CLOUDY (Clear); COLOR,URINE STRAW (Yellow); UA COLLECTION TYPE CLN CATCH MIDSTREAM; UROBILINOGEN,URINE 0.2 E.U/dL (0.2-1.0)
[2021-06-06 14:51] LABS: GLUCOSE, URINE NEGATIVE (Neg); KETONES,URINE NEGATIVE (Neg); LEUKOCYTE ESTERASE ,URINE NEGATIVE (Neg); NITRITES, URINE NEGATIVE (Neg); OCCULT BLOOD,URINE NEGATIVE (Neg); PROTEIN,URINE NEGATIVE (Neg)
[2021-06-06 15:00] LABS: BASOPHILS % (AUTO) 0.4 % (0-1); EOSINOPHILS # (AUTO) 0.1 X10'3 (0-0.9); EOSINOPHILS % (AUTO) 2.1 % (0-6); LYMPHOCYTES # (AUTO) 1.5 X10'3 (1.1-4.8); LYMPHOCYTES % (AUTO) 30.1 % (21-51); MEAN CORPUSCULAR HEMOGLOBIN 33.4 PG (27.0-31.0); MEAN CORPUSCULAR HGB CONC 34.4 g/dL (33.0-36.5); MEAN PLATELET VOLUME 8.1 FL (7.4-10.4); MONOCYTES # (AUTO) 0.3 X10'3 (0-0.9); MONOCYTES % (AUTO) 6.8 % (2-12); NEUTROPHILS # (AUTO) 3.1 X10'3 (1.8-7.7); NEUTROPHILS % (AUTO) 60.6 % (42-75); PRE OP HEMATOCRIT 34.8 % (42.0-52.0); PRE OP PLATELET COUNT 209 X10'3 (140-440); RED BLOOD COUNT 3.59 X10'6 (4.70-6.10); RED CELL DISTRIBUTION WIDTH 13.2 % (11.5-14.5)
[2021-06-06 15:13] LABS: ALBUMIN 4.1 G/DL (3.4-5.0); ALBUMIN/GLOBULIN RATIO 1.4 (1.1-1.5); ALKALINE PHOSPHATASE 84 IU/L (46-116); BLOOD UREA NITROGEN 18 MG/DL (7-18); BUN/CREATININE RATIO 16.1 (5.4-32.0); CALCIUM 8.9 MG/DL (8.5-10.1); CHLORIDE 104 MMOL/L (99-107); CHOL/HDL RATIO 1.5 (0.00-4.99); CHOLESTEROL 166 MG/DL (0-200); CREATININE 1.12 MG/DL (0.60-1.10); HDL CHOLESTEROL 110 MG/DL (35-60); LDL CHOLESTEROL 38 MG/DL (50-100); PRE OP ANION GAP 13 (8-16); PRE OP AST 41 U/L (10-37); PRE OP BILIRUB, TOTAL 0.6 MG/DL (0.0-1.0); PRE OP GLUCOSE 116 MG/DL (70-104); PRE OP POTASSIUM 4.1 MMOL/L (3.4-5.1); PRE OP SODIUM 136 MMOL/L (135-145); TRIGLYCERIDES 61 MG/DL (20-135); eGFR 64 ML/MIN
[2021-06-06 15:15] LABS: PRE OP ALT 89 U/L (30-65)
[2021-06-06 15:58] LABS: BACTERIA,URINE NONE SEEN /HPF (Neg); MUCUS STRANDS NONE SEEN /LPF (Neg); RBC,URINE NONE SEEN /HPF (0-2); SQUAMOUS EPITHELIAL CELL,UR FEW /LPF (FEW); WBC,URINE 0-4 /HPF (0-4)
[~2021-06-29] VITALS: Ht 177.8 cm; Wt 66.0 kg
[2021-06-29] VITALS (12 sets, daily range): BP systolic 119–187; BP diastolic 61–98
[~2021-06-29 13:24] MED LIST changes: -ASPI-611 PO; +CALC-336 PO; +CYAN10007 IM; +LIDOcaine 1% (10mg/ml) 2ml vial ONE; +LORA2TAB96 PO; +MAGN400C PO; +PROP225C9 PO; +PSYL575P22 PO; +[UNRECOGNIZED DRUG - OTHER] TOP; +cefazolin/dext.iso 2gm/50ml IV ONE; +famotidine 20mg tablet PO ONE; +ringers solution, lacted 1,000 ML IV SCH
[2021-06-29 14:25] LABS: BASOPHILS % (AUTO) 0.6 % (0-1); EOSINOPHILS # (AUTO) 0.1 X10'3 (0-0.9); EOSINOPHILS % (AUTO) 1.3 % (0-6); LYMPHOCYTES # (AUTO) 1.2 X10'3 (1.1-4.8); LYMPHOCYTES % (AUTO) 27.2 % (21-51); MEAN CORPUSCULAR HEMOGLOBIN 33.7 PG (27.0-31.0); MEAN CORPUSCULAR HGB CONC 34.5 g/dL (33.0-36.5); MEAN CORPUSCULAR VOLUME 97.8 FL (78-98); MEAN PLATELET VOLUME 7.9 FL (7.4-10.4); MONOCYTES # (AUTO) 0.4 X10'3 (0-0.9); NEUTROPHILS # (AUTO) 2.7 X10'3 (1.8-7.7); NEUTROPHILS % (AUTO) 60.9 % (42-75); PRE OP HEMATOCRIT 34.2 % (42.0-52.0); PRE OP HEMOGLOBIN 11.8 g/dL (14.0-17.9); PRE OP PLATELET COUNT 163 X10'3 (140-440); RED CELL DISTRIBUTION WIDTH 13.8 % (11.5-14.5)
[2021-06-29 14:40] LABS: ALBUMIN/GLOBULIN RATIO 1.5 (1.1-1.5); ALKALINE PHOSPHATASE 67 IU/L (46-116); BLOOD UREA NITROGEN 13 MG/DL (7-18); BUN/CREATININE RATIO 12.3 (5.4-32.0); CALCIUM 8.9 MG/DL (8.5-10.1); CHLORIDE 103 MMOL/L (99-107); CREATININE 1.06 MG/DL (0.60-1.10); PRE OP ALT 77 U/L (30-65); PRE OP ANION GAP 13 (8-16); PRE OP AST 47 U/L (10-37); PRE OP BILIRUB, TOTAL 0.8 MG/DL (0.0-1.0); PRE OP GLUCOSE 116 MG/DL (70-104); PRE OP POTASSIUM 3.8 MMOL/L (3.4-5.1); PRE OP SODIUM 134 MMOL/L (135-145); TOTAL CARBON DIOXIDE 18.4 MMOL/L (24-32); TOTAL PROTEIN 6.7 G/DL (6.4-8.2); eGFR 68 ML/MIN
[2021-06-29] MEDS ORDERED: ondansetron/PF 4mg/2ml inj IV PRN (15:10)
[2021-06-29] MEDS ORDERED: fentaNYL/PF 50MCG/1 ML 2ML syringe IV PRN ×2 (15:10)
[2021-06-29] MEDS ORDERED: morphine 4 MG/ML inj SYRINge IV PRN (15:10)
[2021-06-29] MEDS ORDERED: labetalol 20mg/4ml (5mg/ml) syringe IV PRN (15:10)
[2021-06-29] MEDS ORDERED: morphine 2 MG/ML inj. syringe IV PRN (15:10)
[2021-06-29] MEDS ORDERED: hydrALAZINE 20mg/ml inj. IV PRN (15:10)
[2021-06-29] MEDS ORDERED: ringers solution, lacted 1,000 ML IV SCH (15:10)
[2021-06-29] MEDS ORDERED: labetalol 20mg/4ml (5mg/ml) syringe IV ONE (16:34)
[2021-06-29] MEDS ORDERED: desflurane 240ml liquid inh. IH ONE (16:34)
[2021-06-29] MEDS ORDERED: dexamethasone sod phosphate 10mg/ml inj ONE (16:34)
[2021-06-29] MEDS ORDERED: midazolam 1 mg/ML 2ml injection ONE (16:37)
[2021-06-29] MEDS ORDERED: ondansetron/PF 4mg/2ml inj ONE (16:37)
[2021-06-29] MEDS ORDERED: etomidate 2mg/ml inj. ONE (16:37)
[2021-06-29] MEDS ORDERED: fentaNYL/PF 50MCG/1 ML 2ML syringe ONE (16:37)
[2021-06-29] MEDS ORDERED: ROPIVAcaine 0.5% (5mg/ml) 30ml vial ONE (17:20)
--- NOTE | 2021-06-29 17:42 | NUR ---
Received from OR via LINDA, accompanied by Anesthesiologist DR PINA and report given by Anesthesiologist. PT DROWSY, DENIES PAIN, RIGHT KNEE W/TOY WRAP COVERING DRSG/INCISION CDI. Addendum: 06/29/21 at 1809 by Margaret Henry RN Amended: Links added.
--- NOTE | 2021-06-29 19:32 | NUR ---
PTS PAIN IMPROVED, BP IMPROVED, WNL, VOIDED, IS ABLE TO AMBULATE W/MINIMAL ASSIST. D/C INSTRUCTIONS GIVEN AND GONE OVER W/PT AND PTS WHO VERBALIZED UNDERSTANDING. PT D/CD TO HOME VIA W/C TO PRIVATE VEHICLE W/O INCIDENT. Addendum: 06/29/21 at 194 by Margaret Henry RN Amended: Links added.
== END 2021-06-29 19:32 | disposition home or self-care (01) ==
LOC: PRE-OP 13:24
PROVIDERS: ATTEND Orthopaedic Surgery
DX: S83.231A Complex tear of medial meniscus, current injury, right knee, initial encounter (principal); I48.91 Unspecified atrial fibrillation; I10 Essential (primary) hypertension; I25.10 Atherosclerotic heart disease of native coronary artery without angina pectoris; F41.9 Anxiety disorder, unspecified; F32.9 Major depressive disorder, single episode, unspecified; G89.29 Other chronic pain; Z88.8 Allergy status to other drugs, medicaments and biological substances; Z91.09 Other allergy status, other than to drugs and biological substances; Z87.891 Personal history of nicotine dependence; Z87.01 Personal history of pneumonia (recurrent); Z20.822 Contact with and (suspected) exposure to COVID-19; Z72.89 Other problems related to lifestyle; Z88.0 Allergy status to penicillin; Z88.1 Allergy status to other antibiotic agents; Z90.49 Acquired absence of other specified parts of digestive tract; Z98.890 Other specified postprocedural states; X58.XXXA Exposure to other specified factors, initial encounter; Y92.89 Other specified places as the place of occurrence of the external cause; Y93.89 Activity, other specified; Y99.8 Other external cause status
CPT/HCPCS: 29881; 36415; 80053; 80061; 81001; 84443; 85025; 87635; C9803; J0360; J0690; J1100; J2250; J2270; J2405; J2795; J3010; J3490; J7030; J7120; U0003; U0005; Z7506; Z7508; Z7512; A4215; A4618; A6449

== ENCOUNTER 2021-07-30 10:32 | Emergency (ER) | payer BC, MEDICARE ==
[~2021-07-30] VITALS: Ht 177.8 cm; Wt 70.5 kg
[~2021-07-30 10:32] MED LIST changes: -LIDOcaine 1% (10mg/ml) 2ml vial ONE; -cefazolin/dext.iso 2gm/50ml IV ONE; -famotidine 20mg tablet PO ONE; -ringers solution, lacted 1,000 ML IV SCH
[2021-07-30 11:41] LABS: BASOPHILS % (AUTO) 0.6 % (0-1); EOSINOPHILS # (AUTO) 0.1 X10'3 (0-0.9); EOSINOPHILS % (AUTO) 1.8 % (0-6); HEMATOCRIT 33.7 % (42.0-52.0); HEMOGLOBIN 11.5 g/dl (14.0-17.9); LYMPHOCYTES # (AUTO) 0.8 X10'3 (1.1-4.8); LYMPHOCYTES % (AUTO) 17.5 % (21-51); MEAN CORPUSCULAR HEMOGLOBIN 33.5 PG (27.0-31.0); MEAN CORPUSCULAR VOLUME 98.6 FL (78-98); MEAN PLATELET VOLUME 7.4 FL (7.4-10.4); MONOCYTES # (AUTO) 0.3 X10'3 (0-0.9); MONOCYTES % (AUTO) 7.5 % (2-12); NEUTROPHILS # (AUTO) 3.3 X10'3 (1.8-7.7); NEUTROPHILS % (AUTO) 72.6 % (42-75); PLATELET COUNT 166 X10'3 (140-440); RED BLOOD COUNT 3.42 X10'6 (4.70-6.10); RED CELL DISTRIBUTION WIDTH 14.1 % (11.5-14.5); WHITE BLOOD COUNT 4.5 X10'3 (4.5-11.0)
[2021-07-30 11:54] LABS: ALANINE AMINOTRANSFERASE 63 U/L (12-78); ALBUMIN 3.6 G/DL (3.4-5.0); ALBUMIN/GLOBULIN RATIO 1.2 (1.1-1.5); ALKALINE PHOSPHATASE 65 IU/L (46-116); ANION GAP 11 (8-16); ASPARTATE AMINO TRANSFERASE 37 U/L (10-37); BILIRUBIN,TOTAL 0.4 MG/DL (0.1-1.0); BLOOD UREA NITROGEN 25 MG/DL (7-18); BUN/CREATININE RATIO 19.2 (5.4-32.0); CALCIUM 8.4 MG/DL (8.5-10.1); CHLORIDE 109 MMOL/L (99-107); GLUCOSE 127 MG/DL (70-104); POTASSIUM 4.9 MMOL/L (3.5-5.1); SODIUM 141 MMOL/L (135-145); TOTAL CARBON DIOXIDE 20.7 MMOL/L (24-32); TOTAL PROTEIN 6.7 G/DL (6.4-8.2); eGFR 54 ML/MIN
[2021-07-30] MEDS ORDERED: sulfamethoxazole/trimethoprim DS (800/160mg) tablet PO ONE (11:55)
[2021-07-30 11:57] LABS: C-REACTIVE PROTEIN < 0.05 MG/DL (0.0-0.5)
[2021-07-30 12:13] LABS: CLARITY,URINE CLEAR (Clear); COLOR,URINE YELLOW (Yellow); GLUCOSE, URINE NEGATIVE (Neg); KETONES,URINE NEGATIVE (Neg); LEUKOCYTE ESTERASE ,URINE NEGATIVE (Neg); NITRITES, URINE NEGATIVE (Neg); OCCULT BLOOD,URINE NEGATIVE (Neg); PROTEIN,URINE NEGATIVE (Neg); UROBILINOGEN,URINE 0.2 E.U/dL (0.2-1.0)
[2021-07-30 12:20] LABS: UA COLLECTION TYPE CLN CATCH MIDSTREAM
--- NOTE | 2021-07-30 13:56 | NUR ---
BACK FROM MRI IN STABLE CONDITION.
[2021-07-30] MEDS ORDERED: vancomycin/NS 1 GM ADD-VANTAGE 250 ML IV ONE (14:50)
[2021-07-30] MEDS ORDERED: SULF1TAB49 PO (14:51)
[2021-07-30 15:37] VITALS: BP 133/72
[2021-07-30] MEDS ORDERED: GADOTERATE MEGLUMINE 7.5 MMOL/15 ML VIAL IV ONE (18:54)
== END 2021-07-30 16:58 | disposition home or self-care (01) ==
LOC: ER 10:32
DX: L03.312 Cellulitis of back [any part except buttock and flank] (principal); M54.50 Low back pain, unspecified; R53.1 Weakness; R20.0 Anesthesia of skin; I48.91 Unspecified atrial fibrillation; I25.10 Atherosclerotic heart disease of native coronary artery without angina pectoris; I10 Essential (primary) hypertension; G89.29 Other chronic pain; F41.9 Anxiety disorder, unspecified; F32.9 Major depressive disorder, single episode, unspecified; Z87.01 Personal history of pneumonia (recurrent); Z87.11 Personal history of peptic ulcer disease; Z90.89 Acquired absence of other organs; Z90.49 Acquired absence of other specified parts of digestive tract; Z98.890 Other specified postprocedural states; Z72.89 Other problems related to lifestyle; Z88.0 Allergy status to penicillin; Z88.8 Allergy status to other drugs, medicaments and biological substances; Z88.1 Allergy status to other antibiotic agents; Z88.5 Allergy status to narcotic agent; Z79.2 Long term (current) use of antibiotics; Z79.899 Other long term (current) drug therapy
CPT/HCPCS: 36415; 72146; 72158; 80053; 81003; 84145; 85025; 85651; 86140; 96365; 99285; A9575; J3370

== ENCOUNTER 2021-09-28 08:50 | Outpatient (CLI) | payer BC, MEDICARE | END 2021-09-28 23:59 | disposition home or self-care (01) | LOC: RAD 08:50 | PROVIDERS: ATTEND Physician Assistant | DX: M47.814 Spondylosis without myelopathy or radiculopathy, thoracic region (principal); R60.9 Edema, unspecified; M48.56XA Collapsed vertebra, not elsewhere classified, lumbar region, initial encounter for fracture | CPT/HCPCS: 72146 ==

== ENCOUNTER 2021-10-12 18:23 | Emergency (ER) | payer BC, MEDICARE ==
[~2021-10-12] VITALS: Ht 175.3 cm; Wt 68.5 kg
[2021-10-12 18:56] VITALS: BP 135/98
[2021-10-12] MEDS ORDERED: acetaminophen 325mg tablet PO ONE (19:10)
[2021-10-12] MEDS ORDERED: ibuprofen 200mg tablet PO ONE (19:10)
--- NOTE | 2021-10-12 19:13 | NUR ---
PT REPORTS NOT HAVING ANY ALLERGIC RXNS TO IBUPROFEN.
[2021-10-12] MEDS ORDERED: ibuprofen tablet 400 MG TABLET PO ONE (19:30)
== END 2021-10-12 19:58 | disposition home or self-care (01) ==
LOC: ER 18:24
DX: R50.83 Postvaccination fever (principal); T50.B95A Adverse effect of other viral vaccines, initial encounter; Y92.89 Other specified places as the place of occurrence of the external cause; R00.2 Palpitations; I11.9 Hypertensive heart disease without heart failure; G89.29 Other chronic pain; M54.59 Other low back pain; F31.9 Bipolar disorder, unspecified; Z88.8 Allergy status to other drugs, medicaments and biological substances; Z88.0 Allergy status to penicillin
CPT/HCPCS: 99284

== ENCOUNTER 2021-11-07 09:27 | Outpatient (CLI) | payer BC, MEDICARE | END 2021-11-07 23:59 | disposition home or self-care (01) | LOC: RAD 09:27 | PROVIDERS: ATTEND Family Medicine | DX: S72.009A Fracture of unspecified part of neck of unspecified femur, initial encounter for closed fracture (principal); M46.1 Sacroiliitis, not elsewhere classified; M43.28 Fusion of spine, sacral and sacrococcygeal region; X58.XXXA Exposure to other specified factors, initial encounter; Y93.89 Activity, other specified; Y92.89 Other specified places as the place of occurrence of the external cause; Y99.8 Other external cause status | CPT/HCPCS: 72202 ==

== ENCOUNTER 2021-11-23 09:53 | Outpatient (CLI) | payer BC, MEDICARE ==
[2021-11-22 10:42] LABS: BASOPHILS % (AUTO) 0.7 % (0-1); EOSINOPHILS # (AUTO) 0.3 X10'3 (0-0.9); HEMATOCRIT 34.2 % (42.0-52.0); HEMOGLOBIN 11.6 g/dl (14.0-17.9); LYMPHOCYTES # (AUTO) 1.6 X10'3 (1.1-4.8); MEAN CORPUSCULAR HEMOGLOBIN 32.8 PG (27.0-31.0); MEAN CORPUSCULAR VOLUME 96.4 FL (78-98); MEAN PLATELET VOLUME 7.6 FL (7.4-10.4); MONOCYTES # (AUTO) 0.4 X10'3 (0-0.9); MONOCYTES % (AUTO) 8.7 % (2-12); NEUTROPHILS # (AUTO) 2.2 X10'3 (1.8-7.7); NEUTROPHILS % (AUTO) 49.6 % (42-75); PLATELET COUNT 188 X10'3 (140-440); RED BLOOD COUNT 3.54 X10'6 (4.70-6.10); RED CELL DISTRIBUTION WIDTH 12.6 % (11.5-14.5); WHITE BLOOD COUNT 4.5 X10'3 (4.5-11.0)
[2021-11-22 11:07] LABS: CLARITY,URINE CLEAR (Clear); COLOR,URINE YELLOW (Yellow); GLUCOSE, URINE NEGATIVE (Neg); KETONES,URINE NEGATIVE (Neg); LEUKOCYTE ESTERASE ,URINE NEGATIVE (Neg); NITRITES, URINE NEGATIVE (Neg); OCCULT BLOOD,URINE NEGATIVE (Neg); PH,URINE 5.5 (4.8-8.0); PROTEIN,URINE NEGATIVE (Neg); UROBILINOGEN,URINE 0.2 E.U/dL (0.2-1.0)
[2021-11-22 11:08] LABS: UA COLLECTION TYPE NON-SPECIFIED
[2021-11-22 11:10] LABS: ALANINE AMINOTRANSFERASE 46 U/L (12-78); ALBUMIN 3.9 G/DL (3.4-5.0); ALBUMIN/GLOBULIN RATIO 1.3 (1.1-1.5); ALKALINE PHOSPHATASE 80 IU/L (46-116); ANION GAP 12 (8-16); ASPARTATE AMINO TRANSFERASE 34 U/L (10-37); BILIRUBIN,TOTAL 0.5 MG/DL (0.1-1.0); BLOOD UREA NITROGEN 17 MG/DL (7-18); BUN/CREATININE RATIO 15.6 (5.4-32.0); CALCIUM 8.3 MG/DL (8.5-10.1); CHLORIDE 104 MMOL/L (99-107); CHOL/HDL RATIO 1.6 (0.00-4.99); CHOLESTEROL 145 MG/DL (0-200); CREATININE 1.09 MG/DL (0.60-1.10); GLUCOSE 102 MG/DL (70-104); HDL CHOLESTEROL 93 MG/DL (35-60); LDL CHOLESTEROL 28 MG/DL (50-100); POTASSIUM 4.5 MMOL/L (3.5-5.1); SODIUM 135 MMOL/L (135-145); TOTAL CARBON DIOXIDE 19.5 MMOL/L (24-32); TOTAL PROTEIN 6.8 G/DL (6.4-8.2); TRIGLYCERIDES 74 MG/DL (20-135); eGFR 66 ML/MIN
[2021-11-23] MEDS ORDERED: iohexol 300 MG/1 ML 50ml polymer ONE ×2 (09:56)
== END 2021-11-23 23:59 | disposition home or self-care (01) ==
LOC: RAD 09:53
PROVIDERS: ATTEND Family Medicine
DX: M48.05 Spinal stenosis, thoracolumbar region (principal); M48.56XA Collapsed vertebra, not elsewhere classified, lumbar region, initial encounter for fracture; M43.26 Fusion of spine, lumbar region; M48.07 Spinal stenosis, lumbosacral region; M54.9 Dorsalgia, unspecified
CPT/HCPCS: 36415; 72132; 80053; 80061; 81003; 84439; 84443; 85025; Q9967

== ENCOUNTER 2021-12-27 13:51 | Emergency (ER) | payer BC, MEDICARE ==
[~2021-12-27] VITALS: Ht 175.3 cm; Wt 70.5 kg
--- NOTE | 2021-12-27 16:18 | NUR ---
TO MRI AT THIS TIME VIA WHEELCHAIR.
--- NOTE | 2021-12-27 17:09 | NUR ---
PATIENT BACK TO ROOM VIA WHEELCHAIR, NO SIGNS OF DISTRESS NOTED, AT BEDSIDE.
[2021-12-27] MEDS ORDERED: gabapentin 300mg capsule PO ONE (19:20)
[2021-12-27 19:28] VITALS: BP 148/71
== END 2021-12-28 07:54 | disposition home or self-care (01) ==
LOC: ER 13:52
DX: S32.020G Wedge compression fracture of second lumbar vertebra, subsequent encounter for fracture with delayed healing (principal); R20.0 Anesthesia of skin; G89.29 Other chronic pain; R53.1 Weakness; I48.91 Unspecified atrial fibrillation; I25.10 Atherosclerotic heart disease of native coronary artery without angina pectoris; I10 Essential (primary) hypertension; Z87.01 Personal history of pneumonia (recurrent); Z87.19 Personal history of other diseases of the digestive system; Z87.11 Personal history of peptic ulcer disease; Z90.49 Acquired absence of other specified parts of digestive tract; Z72.89 Other problems related to lifestyle; Z88.0 Allergy status to penicillin; Z88.8 Allergy status to other drugs, medicaments and biological substances; Z91.048 Other nonmedicinal substance allergy status; Z79.899 Other long term (current) drug therapy; X58.XXXA Exposure to other specified factors, initial encounter; Y93.89 Activity, other specified; Y92.89 Other specified places as the place of occurrence of the external cause; Y99.8 Other external cause status
CPT/HCPCS: 72148; 99285

== ENCOUNTER 2022-01-01 10:57 | Emergency (ER) | payer BC, MEDICARE ==
[~2022-01-01] VITALS: Ht 177.8 cm; Wt 70.4 kg
[2022-01-01] MEDS ORDERED: dexamethasone sod phosphate 10mg/ml inj IV STA (17:03)
[2022-01-01] MEDS ORDERED: gabapentin 400mg capsule PO ONE (18:20)
[2022-01-01 18:37] LABS: BASOPHILS % (AUTO) 0.5 % (0-1); EOSINOPHILS # (AUTO) 0.1 X10'3 (0-0.9); EOSINOPHILS % (AUTO) 2.3 % (0-6); HEMATOCRIT 36.2 % (42.0-52.0); HEMOGLOBIN 12.3 g/dl (14.0-17.9); LYMPHOCYTES # (AUTO) 1.5 X10'3 (1.1-4.8); LYMPHOCYTES % (AUTO) 32.7 % (21-51); MEAN CORPUSCULAR HEMOGLOBIN 33.1 PG (27.0-31.0); MEAN CORPUSCULAR HGB CONC 34.1 g/dL (33.0-36.5); MEAN CORPUSCULAR VOLUME 97.2 FL (78-98); MEAN PLATELET VOLUME 7.5 FL (7.4-10.4); MONOCYTES # (AUTO) 0.4 X10'3 (0-0.9); MONOCYTES % (AUTO) 9.7 % (2-12); NEUTROPHILS # (AUTO) 2.4 X10'3 (1.8-7.7); NEUTROPHILS % (AUTO) 54.8 % (42-75); PLATELET COUNT 191 X10'3 (140-440); RED BLOOD COUNT 3.73 X10'6 (4.70-6.10); RED CELL DISTRIBUTION WIDTH 13.3 % (11.5-14.5); WHITE BLOOD COUNT 4.4 X10'3 (4.5-11.0)
[2022-01-01 18:54] LABS: ALANINE AMINOTRANSFERASE 63 U/L (12-78); ALBUMIN 3.9 G/DL (3.4-5.0); ALBUMIN/GLOBULIN RATIO 1.3 (1.1-1.5); ALKALINE PHOSPHATASE 85 IU/L (46-116); ANION GAP 12 (8-16); ASPARTATE AMINO TRANSFERASE 40 U/L (10-37); BILIRUBIN,TOTAL 0.5 MG/DL (0.1-1.0); BLOOD UREA NITROGEN 24 MG/DL (7-18); BUN/CREATININE RATIO 22.6 (5.4-32.0); CALCIUM 8.7 MG/DL (8.5-10.1); CHLORIDE 106 MMOL/L (99-107); CREATININE 1.06 MG/DL (0.60-1.10); GLUCOSE 99 MG/DL (70-104); POTASSIUM 4.6 MMOL/L (3.5-5.1); SODIUM 140 MMOL/L (135-145); TOTAL CARBON DIOXIDE 21.9 MMOL/L (24-32); TOTAL PROTEIN 6.8 G/DL (6.4-8.2); eGFR 68 ML/MIN
[2022-01-01 18:58] LABS: CLARITY,URINE CLEAR (Clear); COLOR,URINE YELLOW (Yellow); GLUCOSE, URINE NEGATIVE (Neg); KETONES,URINE NEGATIVE (Neg); LEUKOCYTE ESTERASE ,URINE NEGATIVE (Neg); NITRITES, URINE NEGATIVE (Neg); OCCULT BLOOD,URINE NEGATIVE (Neg); PH,URINE 5.5 (4.8-8.0); PROTEIN,URINE NEGATIVE (Neg); UROBILINOGEN,URINE 0.2 E.U/dL (0.2-1.0)
[2022-01-01 19:03] LABS: UA COLLECTION TYPE CLN CATCH MIDSTREAM
[2022-01-01] MEDS ORDERED: morphine 4 MG/ML inj SYRINge IV ONE ×2 (19:15→22:30)
--- NOTE | 2022-01-01 21:16 | NUR ---
Gave report to [facility] call center.
--- NOTE | 2022-01-01 22:18 | NUR ---
[facility]
[2022-01-01] MEDS ORDERED: propafenone 150mg tablet PO SCH (23:45)
[2022-01-02] MEDS ORDERED: gabapentin 400mg capsule PO SCH
[2022-01-02 00:53] VITALS: BP 159/84
== END 2022-01-02 01:16 | disposition short-term general hospital (02) ==
LOC: ER 10:58
DX: S32.018G Other fracture of first lumbar vertebra, subsequent encounter for fracture with delayed healing (principal); G83.4 Cauda equina syndrome; I48.91 Unspecified atrial fibrillation; I25.10 Atherosclerotic heart disease of native coronary artery without angina pectoris; I10 Essential (primary) hypertension; G89.29 Other chronic pain; F41.9 Anxiety disorder, unspecified; F32.9 Major depressive disorder, single episode, unspecified; Z72.89 Other problems related to lifestyle; Z98.890 Other specified postprocedural states; X50.1XXD Overexertion from prolonged static or awkward postures, subsequent encounter
CPT/HCPCS: 36415; 72148; 76881; 80053; 81003; 85025; 96374; 96375; 96376; 99285; J1100; J2270

== ENCOUNTER 2022-01-13 10:14 | Inpatient (IN) | payer BC, MEDICARE ==
[~2022-01-13] VITALS: Ht 175.3 cm; Wt 74.3 kg
[2022-01-13] MEDS: metoprolol succinate 25mg (24-HOUR) SR. Tablet PO SCH (17:50)
[2022-01-13] MEDS ORDERED: acetaminophen 325mg tablet PO PRN ×2 (17:55)
[2022-01-13] MEDS ORDERED: HYDROcodone/acetaminophen 5mg/325mg tablet PO PRN (17:55)
[2022-01-13] MEDS ORDERED: morphine 2 MG/ML inj. syringe IV PRN ×3 (17:55→18:45)
[2022-01-13] MEDS ORDERED: mag hydrox/Alum hydrox/simeth 30ml oral suspension PO PRN (17:55)
[2022-01-13] MEDS ORDERED: magnesium hydroxide 30ml (MOM) UD suspension PO PRN (17:55)
[2022-01-13] MEDS ORDERED: ondansetron/PF 4mg/2ml inj IV PRN (17:55)
[2022-01-13] MEDS ORDERED: magnesium 4gm in 100ml NS 100 ML IV PRN (17:55)
[2022-01-13] MEDS ORDERED: magnesium Cl slow-release 64mg tablet PO PRN (17:55)
[2022-01-13] MEDS ORDERED: POTASSIUM BICARB 20meq eff tab 20 MEQ TABLET.EFF PO PRN (17:55)
[2022-01-13] MEDS ORDERED: magnesium 2GM in 50ml NS 50 ML IV PRN (17:55)
[2022-01-13 18:11] VITALS: BP 127/87
[2022-01-13] MEDS ORDERED: diltiazem 5mg/ml 5ml inj. IV ONE (18:45)
[2022-01-13] MEDS ORDERED: BACL10TA2 PO (19:03)
[2022-01-13] MEDS ORDERED: PRE1T PO (19:03)
[2022-01-13] MEDS ORDERED: GABA300C PO (19:03)
[2022-01-13] MEDS ORDERED: TRAZ-256 PO (19:03)
[2022-01-13] MEDS ORDERED: CICL12.5 BOTHNARES (19:10)
[2022-01-13] MEDS ORDERED: OMEP40CA21 PO (19:10)
[2022-01-13 19:45] VITALS: BP 132/73
[2022-01-13 19:48] LABS: HEMOGLOBIN A1C 5.2 % (4.5-6.2)
[2022-01-13 19:49] LABS: MAGNESIUM 1.8 MG/DL (1.5-2.4)
[2022-01-13 19:53] LABS: POTASSIUM 2.8 MMOL/L (3.5-5.1)
[2022-01-13] MEDS ORDERED: morphine ER 15mg tablet PO SCH (20:00)
[2022-01-13] MEDS ORDERED: enoxaparin 40mg/0.4ml syringe SQ SCH (20:00)
[2022-01-13] MEDS: K and/or MAG REPLACEMENT MC SCH (20:00)
[2022-01-13] MEDS: apixaban 5mg tablet PO SCH (20:26)
[2022-01-13] MEDS: docusate sod 100mg capsule PO SCH (20:34)
[2022-01-13] MEDS: potassium CL 10mEq/100ml bag 100 ML IV PRN ×3 (20:36→23:08)
[2022-01-13] MEDS ORDERED: HYDROcodone/acetaminophen 10/325mg tab PO PRN (21:40)
[2022-01-13] MEDS ORDERED: cyanocobalamin 1,000 mcg/ml inj IM SCH (21:40)
[2022-01-13 21:45] VITALS: BP 118/71
[2022-01-13] MEDS: HYDROcodone/acetaminophen 10/325mg tab PO PRN (22:57)
[2022-01-13] MEDS: magnesium oxide 400mg tablet PO SCH (23:15)
[2022-01-13] MEDS: gabapentin 300mg capsule PO SCH (23:15)
[2022-01-13 23:45] VITALS: BP 120/56
[2022-01-14] VITALS (12 sets, daily range): BP systolic 101–159; BP diastolic 50–79
[2022-01-14] MEDS: potassium CL 10mEq/100ml bag 100 ML IV PRN (00:09)
[2022-01-14] MEDS: HYDROcodone/acetaminophen 10/325mg tab PO PRN ×5 (03:55→19:40)
--- NOTE | 2022-01-14 05:30 | NUR ---
Pt had critical potassium test result of 2.8.Potassium CL 10MEq/100ml infusion commenced per protocol.
[2022-01-14] MEDS: metoprolol succinate 25mg (24-HOUR) SR. Tablet PO SCH ×2 (06:00→07:49)
[2022-01-14 06:40] LABS: BASOPHILS # (AUTO) 0.1 X10'3 (0-0.2); BASOPHILS % (AUTO) 0.8 % (0-1); EOSINOPHILS # (AUTO) 0.3 X10'3 (0-0.9); HEMATOCRIT 32.1 % (42.0-52.0); HEMOGLOBIN 10.6 g/dl (14.0-17.9); LYMPHOCYTES # (AUTO) 1.9 X10'3 (1.1-4.8); LYMPHOCYTES % (AUTO) 22.3 % (21-51); MEAN CORPUSCULAR HGB CONC 33.2 g/dL (33.0-36.5); MEAN CORPUSCULAR VOLUME 93.3 FL (78-98); MEAN PLATELET VOLUME 7.8 FL (7.4-10.4); MONOCYTES # (AUTO) 0.9 X10'3 (0-0.9); NEUTROPHILS # (AUTO) 5.3 X10'3 (1.8-7.7); NEUTROPHILS % (AUTO) 62.9 % (42-75); PLATELET COUNT 384 X10'3 (140-440); RED BLOOD COUNT 3.44 X10'6 (4.70-6.10); RED CELL DISTRIBUTION WIDTH 14.5 % (11.5-14.5); WHITE BLOOD COUNT 8.5 X10'3 (4.5-11.0)
[2022-01-14 06:47] LABS: ALANINE AMINOTRANSFERASE 27 U/L (12-78); ALBUMIN 2.5 G/DL (3.4-5.0); ALBUMIN/GLOBULIN RATIO 0.7 (1.1-1.5); ALKALINE PHOSPHATASE 99 IU/L (46-116); ANION GAP 8 (8-16); ASPARTATE AMINO TRANSFERASE 23 U/L (10-37); BILIRUBIN,TOTAL 0.3 MG/DL (0.1-1.0); BLOOD UREA NITROGEN 12 MG/DL (7-18); BUN/CREATININE RATIO 14.1 (5.4-32.0); CALCIUM 8.4 MG/DL (8.5-10.1); CHLORIDE 106 MMOL/L (99-107); CHOL/HDL RATIO 2.3 (0.00-4.99); CHOLESTEROL 110 MG/DL (0-200); CREATININE 0.85 MG/DL (0.60-1.10); GLUCOSE 105 MG/DL (70-104); HDL CHOLESTEROL 48 MG/DL (35-60); LDL CHOLESTEROL 37 MG/DL (50-100); MAGNESIUM 1.9 MG/DL (1.5-2.4); POTASSIUM 3.1 MMOL/L (3.5-5.1); SODIUM 139 MMOL/L (135-145); TOTAL CARBON DIOXIDE 24.6 MMOL/L (24-32); TOTAL PROTEIN 5.9 G/DL (6.4-8.2); TRIGLYCERIDES 109 MG/DL (20-135); eGFR 88 ML/MIN
[2022-01-14] MEDS ORDERED: diltiazem 5mg/ml 5ml inj. IV ONE (07:35)
[2022-01-14] MEDS: docusate sod 100mg capsule PO SCH (07:40)
[2022-01-14] MEDS: K and/or MAG REPLACEMENT MC SCH ×2 (07:40→19:20)
[2022-01-14] MEDS: multivitamins, therapeutics tablet PO SCH (07:43)
[2022-01-14] MEDS: predniSONE 1 mg tablet PO SCH (07:46)
[2022-01-14] MEDS: magnesium oxide 400mg tablet PO SCH ×2 (07:47→16:30)
[2022-01-14] MEDS: gabapentin 300mg capsule PO SCH ×2 (07:47→16:30)
[2022-01-14] MEDS: losartan 50mg tablet PO SCH (07:49)
[2022-01-14] MEDS: propafenone 150mg tablet PO SCH ×2 (07:49→19:40)
[2022-01-14] MEDS ORDERED: OLMESARTAN MEDOXOMIL 10 MG PO SCH (08:00)
[2022-01-14] MEDS: NUT.TX.IMPAIRED DIGEST FXN (Ensure Clear) 237 ML PO SCH ×3 (08:00→17:56)
[2022-01-14] MEDS ORDERED: pantoprazole 40mg Tablet.DR PO SCH (08:00)
[2022-01-14] MEDS: FLECTOR TOP SCH ×2 (08:00→20:00)
[2022-01-14] MEDS: apixaban 5mg tablet PO SCH (08:00)
[2022-01-14] MEDS: CICLESONIDE NS SCH (08:00)
[2022-01-14] MEDS: POTASSIUM BICARB 20meq eff tab 20 MEQ TABLET.EFF PO PRN ×3 (09:01→16:30)
[2022-01-14] MEDS: baclofen 10mg tablet PO PRN ×2 (11:55→19:39)
--- NOTE | 2022-01-14 14:19 | NUR ---
Called Dr. Queen about the patient/ concern of starting Eliquis and Metoprolol. stated that she would not D/C the Eliquis due to the patient having some time in Afib, even though the patient has converted into NSR/ST. She stated that we can d/c the Metoprolol. was also asked about whether we can start Zanaflex this evening for the patient. The patient stated that he got that medication at [facility] and that it was very helpful for increasing his sleeping due to pain/spasm relief. Dr. Queen agreed for Zanaflex 4mg HS.
--- NOTE | 2022-01-14 16:47 | NUR ---
Patient actually got the Newton at 1555 however the documentation wasn't saved until 1645 so it "pushed" the administration time forward to 1645.
--- NOTE | 2022-01-14 18:37 | NUR ---
Problems reprioritized. Patient report given, questions answered & plan of care reviewed with Chente RN.
[2022-01-14] MEDS: enoxaparin 60mg/0.6ml syringe SUBCUT SCH (19:41)
[2022-01-14] MEDS: diphenoxylate/atropine tablet (Lomotil) PO PRN (19:52)
[2022-01-14] MEDS ORDERED: METAXALONE PO SCH (21:00)
[2022-01-14] MEDS: cyclobenzaprine 10mg tablet PO SCH (21:18)
[2022-01-14] MEDS: traZODone 50mg tablet PO SCH (21:20)
[2022-01-14] MEDS: tizanidine 4mg tablet PO SCH (22:28)
[2022-01-15] MEDS: gabapentin 300mg capsule PO SCH ×3 (00:36→15:51)
[2022-01-15] MEDS: magnesium oxide 400mg tablet PO SCH ×3 (00:36→16:26)
[2022-01-15] MEDS: HYDROcodone/acetaminophen 10/325mg tab PO PRN ×5 (00:36→20:08)
[2022-01-15 03:00] VITALS: BP 134/69
[2022-01-15 05:00] VITALS: BP 97/49
[2022-01-15 07:17] LABS: BASOPHILS # (AUTO) 0.1 X10'3 (0-0.2); EOSINOPHILS # (AUTO) 0.4 X10'3 (0-0.9); EOSINOPHILS % (AUTO) 5.3 % (0-6); HEMATOCRIT 31.9 % (42.0-52.0); HEMOGLOBIN 10.6 g/dl (14.0-17.9); LYMPHOCYTES # (AUTO) 2.1 X10'3 (1.1-4.8); LYMPHOCYTES % (AUTO) 30.6 % (21-51); MEAN CORPUSCULAR HEMOGLOBIN 31.2 PG (27.0-31.0); MEAN CORPUSCULAR HGB CONC 33.2 g/dL (33.0-36.5); MEAN CORPUSCULAR VOLUME 93.9 FL (78-98); MONOCYTES # (AUTO) 0.7 X10'3 (0-0.9); MONOCYTES % (AUTO) 10.3 % (2-12); NEUTROPHILS # (AUTO) 3.6 X10'3 (1.8-7.7); NEUTROPHILS % (AUTO) 52.8 % (42-75); PLATELET COUNT 385 X10'3 (140-440); RED CELL DISTRIBUTION WIDTH 14.9 % (11.5-14.5); WHITE BLOOD COUNT 6.7 X10'3 (4.5-11.0)
[2022-01-15 07:35] LABS: ALANINE AMINOTRANSFERASE 25 U/L (12-78); ALBUMIN 2.5 G/DL (3.4-5.0); ALBUMIN/GLOBULIN RATIO 0.7 (1.1-1.5); ALKALINE PHOSPHATASE 101 IU/L (46-116); ANION GAP 11 (8-16); ASPARTATE AMINO TRANSFERASE 22 U/L (10-37); BILIRUBIN,TOTAL 0.2 MG/DL (0.1-1.0); BLOOD UREA NITROGEN 18 MG/DL (7-18); BUN/CREATININE RATIO 14.9 (5.4-32.0); CALCIUM 8.7 MG/DL (8.5-10.1); CHLORIDE 106 MMOL/L (99-107); CREATININE 1.21 MG/DL (0.60-1.10); GLUCOSE 94 MG/DL (70-104); POTASSIUM 3.4 MMOL/L (3.5-5.1); SODIUM 141 MMOL/L (135-145); TOTAL CARBON DIOXIDE 24.1 MMOL/L (24-32); TOTAL PROTEIN 5.9 G/DL (6.4-8.2); eGFR 58 ML/MIN
[2022-01-15 08:00] VITALS: BP 135/78
[2022-01-15] MEDS: FLECTOR TOP SCH ×2 (08:00→19:59)
[2022-01-15] MEDS: CICLESONIDE NS SCH (08:00)
[2022-01-15] MEDS: K and/or MAG REPLACEMENT MC SCH ×2 (08:00→19:58)
[2022-01-15] MEDS: enoxaparin 60mg/0.6ml syringe SUBCUT SCH ×3 (08:00→19:59)
[2022-01-15] MEDS: propafenone 150mg tablet PO SCH ×2 (08:37→20:08)
[2022-01-15] MEDS: multivitamins, therapeutics tablet PO SCH (08:38)
[2022-01-15] MEDS: predniSONE 1 mg tablet PO SCH (08:38)
[2022-01-15] MEDS: pantoprazole 40mg Tablet.DR PO SCH (08:38)
[2022-01-15] MEDS: NUT.TX.IMPAIRED DIGEST FXN (Ensure Clear) 237 ML PO SCH ×3 (08:39→18:10)
[2022-01-15] MEDS: losartan 50mg tablet PO SCH (08:39)
[2022-01-15] MEDS: baclofen 10mg tablet PO PRN ×2 (08:42→18:47)
[2022-01-15] MEDS: diphenoxylate/atropine tablet (Lomotil) PO PRN (09:24)
--- NOTE | 2022-01-15 10:21 | NUR ---
Dr Rody valenzuela MD aware of patient refusal of lovenox, continue to offer and document refusal of lovenox, start baby aspirin daily, change lomotil to 2 TID, reported small moment of afib, resolved after settling. Pt had placed hearing aids in denture cup. and patient made aware. .
[2022-01-15 12:00] VITALS: BP 92/49
[2022-01-15] MEDS: POTASSIUM BICARB 20meq eff tab 20 MEQ TABLET.EFF PO PRN ×2 (14:58→18:57)
[2022-01-15] MEDS: diphenoxylate/atropine tablet (Lomotil) PO SCH ×2 (14:59→20:22)
[2022-01-15 16:02] VITALS: BP 135/78
[2022-01-15 19:00] VITALS: BP 119/62
[2022-01-15] MEDS: tizanidine 4mg tablet PO SCH (20:07)
[2022-01-15] MEDS: cyclobenzaprine 10mg tablet PO SCH (20:07)
[2022-01-15] MEDS: traZODone 50mg tablet PO SCH (20:08)
[2022-01-16] VITALS (7 sets, daily range): BP systolic 88–129; BP diastolic 47–76
[2022-01-16] MEDS: POTASSIUM BICARB 20meq eff tab 20 MEQ TABLET.EFF PO PRN (00:01)
[2022-01-16] MEDS: HYDROcodone/acetaminophen 10/325mg tab PO PRN ×6 (03:56→20:32)
[2022-01-16] MEDS: baclofen 10mg tablet PO PRN ×2 (03:56→12:33)
[2022-01-16 05:51] LABS: BASOPHILS % (AUTO) 0.5 % (0-1); EOSINOPHILS # (AUTO) 0.3 X10'3 (0-0.9); EOSINOPHILS % (AUTO) 4.2 % (0-6); HEMATOCRIT 28.3 % (42.0-52.0); HEMOGLOBIN 9.5 g/dl (14.0-17.9); LYMPHOCYTES # (AUTO) 2.3 X10'3 (1.1-4.8); LYMPHOCYTES % (AUTO) 28.7 % (21-51); MEAN CORPUSCULAR HEMOGLOBIN 31.3 PG (27.0-31.0); MEAN CORPUSCULAR HGB CONC 33.6 g/dL (33.0-36.5); MEAN PLATELET VOLUME 7.4 FL (7.4-10.4); MONOCYTES # (AUTO) 0.8 X10'3 (0-0.9); MONOCYTES % (AUTO) 10.5 % (2-12); NEUTROPHILS # (AUTO) 4.5 X10'3 (1.8-7.7); NEUTROPHILS % (AUTO) 56.1 % (42-75); PLATELET COUNT 398 X10'3 (140-440); RED BLOOD COUNT 3.05 X10'6 (4.70-6.10); RED CELL DISTRIBUTION WIDTH 14.4 % (11.5-14.5)
[2022-01-16 06:11] LABS: ALANINE AMINOTRANSFERASE 25 U/L (12-78); ALBUMIN 2.3 G/DL (3.4-5.0); ALBUMIN/GLOBULIN RATIO 0.7 (1.1-1.5); ALKALINE PHOSPHATASE 91 IU/L (46-116); ANION GAP 10 (8-16); ASPARTATE AMINO TRANSFERASE 23 U/L (10-37); BILIRUBIN,TOTAL 0.2 MG/DL (0.1-1.0); BLOOD UREA NITROGEN 23 MG/DL (7-18); BUN/CREATININE RATIO 19.5 (5.4-32.0); CHLORIDE 100 MMOL/L (99-107); CREATININE 1.18 MG/DL (0.60-1.10); GLUCOSE 90 MG/DL (70-104); MAGNESIUM 1.7 MG/DL (1.5-2.4); POTASSIUM 3.6 MMOL/L (3.5-5.1); SODIUM 133 MMOL/L (135-145); TOTAL CARBON DIOXIDE 22.7 MMOL/L (24-32); TOTAL PROTEIN 5.4 G/DL (6.4-8.2); eGFR 60 ML/MIN
--- NOTE | 2022-01-16 06:30 | NUR ---
Patient in room CICU 2006. I have received report from JO ANN Stewart and had the opportunity to ask questions and assume patient care.
--- NOTE | 2022-01-16 06:51 | NUR ---
Patient in room CICU 2006. I have received report from Pat CHERRY and had the opportunity to ask questions and assume patient care.
[2022-01-16] MEDS: FLECTOR TOP SCH ×2 (08:00→20:00)
[2022-01-16] MEDS: CICLESONIDE NS SCH (08:00)
[2022-01-16] MEDS: K and/or MAG REPLACEMENT MC SCH ×2 (08:00→19:07)
[2022-01-16] MEDS: diphenoxylate/atropine tablet (Lomotil) PO SCH ×2 (08:12→12:34)
[2022-01-16] MEDS: gabapentin 300mg capsule PO SCH ×3 (08:12→16:13)
[2022-01-16] MEDS: multivitamins, therapeutics tablet PO SCH (08:13)
[2022-01-16] MEDS: pantoprazole 40mg Tablet.DR PO SCH (08:13)
[2022-01-16] MEDS: magnesium oxide 400mg tablet PO SCH ×3 (08:14→16:13)
[2022-01-16] MEDS: losartan 50mg tablet PO SCH (08:14)
[2022-01-16] MEDS: predniSONE 1 mg tablet PO SCH (08:16)
[2022-01-16] MEDS: aspirin 81mg tab.chew PO SCH ×2 (08:17→10:25)
[2022-01-16] MEDS: propafenone 150mg tablet PO SCH ×2 (08:19→20:30)
[2022-01-16] MEDS: NUT.TX.IMPAIRED DIGEST FXN (Ensure Clear) 237 ML PO SCH ×3 (08:21→18:01)
[2022-01-16] MEDS: enoxaparin 60mg/0.6ml syringe SUBCUT SCH ×2 (08:23→20:31)
--- NOTE | 2022-01-16 10:20 | NUR ---
Spoke with Hospitalist Dr. Santiago at bedside regarding aspirin and lovenox orders, stated it was ok to give both.
--- NOTE | 2022-01-16 16:50 | NUR ---
Handoff report given via phone call to Tele nurse JO ANN Mancilla.
--- NOTE | 2022-01-16 17:30 | NUR ---
RECD PT FROM ICU
--- NOTE | 2022-01-16 17:41 | NUR ---
Pt was transferred via bed with all belongings on Tele monitor to room 3022. accompanied. Pt was placed in tele bed, bed locked/low, call light within reach, belongings placed in bedside table and closet. Chart and patient specific medications handed to telegraph equipment maintainerJO ANN Mancilla.
--- NOTE | 2022-01-16 18:12 | NUR ---
Problems reprioritized. Patient report given, questions answered & plan of care reviewed with SÁNCHEZ CHERRY.
[2022-01-16] MEDS: traZODone 50mg tablet PO SCH (20:31)
[2022-01-16] MEDS: tizanidine 4mg tablet PO SCH (20:31)
[2022-01-16] MEDS: cyclobenzaprine 10mg tablet PO SCH (20:31)
[2022-01-17] VITALS (7 sets, daily range): BP systolic 91–115; BP diastolic 47–79
[2022-01-17] MEDS: gabapentin 300mg capsule PO SCH ×3 (00:39→17:11)
[2022-01-17] MEDS: magnesium oxide 400mg tablet PO SCH ×3 (00:39→17:12)
[2022-01-17] MEDS: diphenoxylate/atropine tablet (Lomotil) PO SCH ×4 (00:40→21:56)
[2022-01-17] MEDS: HYDROcodone/acetaminophen 10/325mg tab PO PRN ×5 (00:40→19:35)
--- NOTE | 2022-01-17 06:30 | NUR ---
Patient in room PCU 3022. I have received report from JO ANN Pérez and had the opportunity to ask questions and assume patient care.
[2022-01-17 07:48] LABS: BASOPHILS # (AUTO) 0.1 X10'3 (0-0.2); BASOPHILS % (AUTO) 0.9 % (0-1); EOSINOPHILS # (AUTO) 0.2 X10'3 (0-0.9); EOSINOPHILS % (AUTO) 3.6 % (0-6); HEMATOCRIT 27.2 % (42.0-52.0); HEMOGLOBIN 9.1 g/dl (14.0-17.9); LYMPHOCYTES # (AUTO) 1.9 X10'3 (1.1-4.8); LYMPHOCYTES % (AUTO) 28.6 % (21-51); MEAN CORPUSCULAR HEMOGLOBIN 31.2 PG (27.0-31.0); MEAN CORPUSCULAR HGB CONC 33.4 g/dL (33.0-36.5); MEAN CORPUSCULAR VOLUME 93.3 FL (78-98); MEAN PLATELET VOLUME 7.5 FL (7.4-10.4); MONOCYTES # (AUTO) 0.6 X10'3 (0-0.9); MONOCYTES % (AUTO) 9.4 % (2-12); NEUTROPHILS # (AUTO) 3.8 X10'3 (1.8-7.7); NEUTROPHILS % (AUTO) 57.5 % (42-75); PLATELET COUNT 398 X10'3 (140-440); RED BLOOD COUNT 2.92 X10'6 (4.70-6.10); RED CELL DISTRIBUTION WIDTH 14.9 % (11.5-14.5); WHITE BLOOD COUNT 6.7 X10'3 (4.5-11.0)
[2022-01-17] MEDS: CICLESONIDE NS SCH (08:00)
[2022-01-17] MEDS: FLECTOR TOP SCH ×2 (08:00→20:00)
[2022-01-17] MEDS: K and/or MAG REPLACEMENT MC SCH ×2 (08:00→22:00)
[2022-01-17] MEDS: NUT.TX.IMPAIRED DIGEST FXN (Ensure Clear) 237 ML PO SCH ×3 (08:00→18:23)
[2022-01-17 08:12] LABS: ALANINE AMINOTRANSFERASE 27 U/L (12-78); ALBUMIN 2.3 G/DL (3.4-5.0); ALBUMIN/GLOBULIN RATIO 0.8 (1.1-1.5); ALKALINE PHOSPHATASE 94 IU/L (46-116); ANION GAP 9 (8-16); ASPARTATE AMINO TRANSFERASE 25 U/L (10-37); BILIRUBIN,TOTAL 0.2 MG/DL (0.1-1.0); BLOOD UREA NITROGEN 22 MG/DL (7-18); BUN/CREATININE RATIO 18.2 (5.4-32.0); CALCIUM 8.5 MG/DL (8.5-10.1); CHLORIDE 106 MMOL/L (99-107); CREATININE 1.21 MG/DL (0.60-1.10); GLUCOSE 93 MG/DL (70-104); MAGNESIUM 1.7 MG/DL (1.5-2.4); POTASSIUM 3.3 MMOL/L (3.5-5.1); SODIUM 137 MMOL/L (135-145); TOTAL CARBON DIOXIDE 22.5 MMOL/L (24-32); TOTAL PROTEIN 5.3 G/DL (6.4-8.2); eGFR 58 ML/MIN
[2022-01-17] MEDS: enoxaparin 60mg/0.6ml syringe SUBCUT SCH ×2 (09:58→19:38)
[2022-01-17] MEDS: pantoprazole 40mg Tablet.DR PO SCH (10:01)
[2022-01-17] MEDS: multivitamins, therapeutics tablet PO SCH (10:01)
[2022-01-17] MEDS: aspirin 81mg tab.chew PO SCH (10:01)
[2022-01-17] MEDS: propafenone 150mg tablet PO SCH ×2 (10:02→19:37)
[2022-01-17] MEDS: predniSONE 1 mg tablet PO SCH (10:04)
[2022-01-17] MEDS: losartan 50mg tablet PO SCH (10:10)
--- NOTE | 2022-01-17 11:04 | NUR ---
Initial: Pt admitted s/p recent spine surgery w/ back pain and muscle spasms per EMR. Currently on Regular diet eating 100% of meals meeting needs at this time. Noted MD ordered Ensure clear TID on 01/14 though no ONS documented. TC to RN recommendation to d/c ONS if MD okay given it is not indicated w/ pt eating 100% of meals. LBM 01/16. Will continue to monitor. Recs: 1. Continue Regular diet as tolerated 2. D/C Ensure Clear TID; not indicated 3. Bowel care per rx 4. Scaled wts Addendum: 01/17/22 at [address] Amended: Links added.
[2022-01-17] MEDS ORDERED: potassium Cl 20 mEq SR tablet PO PRN (11:40)
[2022-01-17] MEDS ORDERED: potassium CL 10mEq/100ml bag 100 ML IV PRN (11:40)
[2022-01-17] MEDS ORDERED: magnesium 4gm in 100ml NS 100 ML IV PRN (11:40)
[2022-01-17] MEDS ORDERED: magnesium Cl slow-release 64mg tablet PO PRN (11:40)
[2022-01-17] MEDS: potassium Cl 20 mEq SR tablet PO PRN ×3 (12:42→21:56)
--- NOTE | 2022-01-17 18:30 | NUR ---
Patient in room PCU 3022. I have received report from sylvester and had the opportunity to ask questions and assume patient care.
--- NOTE | 2022-01-17 18:45 | NUR ---
Problems reprioritized. Patient report given, questions answered & plan of care reviewed with GÓMEZ Palomo.
[2022-01-17] MEDS: traZODone 50mg tablet PO SCH (21:56)
[2022-01-17] MEDS: tizanidine 4mg tablet PO SCH (21:56)
[2022-01-17] MEDS: cyclobenzaprine 10mg tablet PO SCH (21:56)
[2022-01-18] MEDS: gabapentin 300mg capsule PO SCH ×3 (00:33→16:28)
[2022-01-18] MEDS: magnesium oxide 400mg tablet PO SCH ×3 (00:33→16:28)
[2022-01-18] MEDS: HYDROcodone/acetaminophen 10/325mg tab PO PRN ×6 (00:34→22:24)
[2022-01-18 02:00] VITALS: BP 118/65
[2022-01-18 06:00] VITALS: BP 123/66
[2022-01-18 06:22] LABS: BASOPHILS % (AUTO) 0.6 % (0-1); EOSINOPHILS # (AUTO) 0.2 X10'3 (0-0.9); EOSINOPHILS % (AUTO) 4.1 % (0-6); HEMATOCRIT 29.6 % (42.0-52.0); HEMOGLOBIN 9.7 g/dl (14.0-17.9); LYMPHOCYTES # (AUTO) 1.7 X10'3 (1.1-4.8); LYMPHOCYTES % (AUTO) 30.5 % (21-51); MEAN CORPUSCULAR HEMOGLOBIN 30.8 PG (27.0-31.0); MEAN CORPUSCULAR HGB CONC 32.9 g/dL (33.0-36.5); MEAN CORPUSCULAR VOLUME 93.5 FL (78-98); MEAN PLATELET VOLUME 7.1 FL (7.4-10.4); MONOCYTES # (AUTO) 0.7 X10'3 (0-0.9); MONOCYTES % (AUTO) 11.8 % (2-12); PLATELET COUNT 417 X10'3 (140-440); RED BLOOD COUNT 3.16 X10'6 (4.70-6.10); RED CELL DISTRIBUTION WIDTH 14.3 % (11.5-14.5); WHITE BLOOD COUNT 5.7 X10'3 (4.5-11.0)
--- NOTE | 2022-01-18 06:23 | NUR ---
Problems reprioritized. Patient report given, questions answered & plan of care reviewed with arianna.
[2022-01-18 06:42] LABS: ANION GAP 9 (8-16); BILIRUBIN,TOTAL 0.2 MG/DL (0.1-1.0); BLOOD UREA NITROGEN 18 MG/DL (7-18); BUN/CREATININE RATIO 18.6 (5.4-32.0); CALCIUM 8.7 MG/DL (8.5-10.1); CHLORIDE 108 MMOL/L (99-107); CREATININE 0.97 MG/DL (0.60-1.10); GLUCOSE 90 MG/DL (70-104); SODIUM 139 MMOL/L (135-145); TOTAL CARBON DIOXIDE 22.4 MMOL/L (24-32); TOTAL PROTEIN 5.8 G/DL (6.4-8.2); eGFR 75 ML/MIN
[2022-01-18 06:43] LABS: ALANINE AMINOTRANSFERASE 31 U/L (12-78); ALBUMIN 2.5 G/DL (3.4-5.0); ALBUMIN/GLOBULIN RATIO 0.8 (1.1-1.5); ALKALINE PHOSPHATASE 104 IU/L (46-116); ASPARTATE AMINO TRANSFERASE 25 U/L (10-37)
[2022-01-18] MEDS: K and/or MAG REPLACEMENT MC SCH ×2 (08:00→18:29)
[2022-01-18] MEDS: NUT.TX.IMPAIRED DIGEST FXN (Ensure Clear) 237 ML PO SCH ×3 (08:00→18:00)
[2022-01-18] MEDS: multivitamins, therapeutics tablet PO SCH (08:00)
[2022-01-18] MEDS: FLECTOR TOP SCH ×2 (08:00→19:50)
[2022-01-18] MEDS: CICLESONIDE NS SCH (08:00)
[2022-01-18] MEDS: enoxaparin 60mg/0.6ml syringe SUBCUT SCH ×2 (09:58→19:21)
[2022-01-18] MEDS: losartan 50mg tablet PO SCH (10:02)
[2022-01-18] MEDS: aspirin 81mg tab.chew PO SCH (10:03)
[2022-01-18] MEDS: pantoprazole 40mg Tablet.DR PO SCH (10:03)
[2022-01-18] MEDS: predniSONE 1 mg tablet PO SCH (10:04)
[2022-01-18] MEDS: diphenoxylate/atropine tablet (Lomotil) PO SCH ×3 (10:04→22:24)
[2022-01-18] MEDS: propafenone 150mg tablet PO SCH ×2 (10:05→19:21)
[2022-01-18 11:00] VITALS: BP 117/53
[2022-01-18 15:00] VITALS: BP 111/50
[2022-01-18 18:00] VITALS: BP 116/60
--- NOTE | 2022-01-18 18:10 | NUR ---
Patient received his enoxaparin for dvt/pe prophylaxis today.
--- NOTE | 2022-01-18 18:11 | NUR ---
Problems reprioritized. Patient report given, questions answered & plan of care reviewed with Dewey.
--- NOTE | 2022-01-18 18:30 | NUR ---
Patient in room PCU 3022. I have received report from stan and had the opportunity to ask questions and assume patient care.
[2022-01-18] MEDS: sulfamethoxazole/trimethoprim DS (800/160mg) tablet PO SCH (19:20)
[2022-01-18] MEDS: cyclobenzaprine 10mg tablet PO SCH (22:23)
[2022-01-18] MEDS: tizanidine 4mg tablet PO SCH (22:24)
[2022-01-18] MEDS: traZODone 50mg tablet PO SCH (22:25)
[2022-01-19] MEDS: magnesium oxide 400mg tablet PO SCH ×4 (00:22→23:39)
[2022-01-19] MEDS: gabapentin 300mg capsule PO SCH ×4 (00:22→23:39)
[2022-01-19 02:00] VITALS: BP 132/69
[2022-01-19] MEDS: HYDROcodone/acetaminophen 10/325mg tab PO PRN ×6 (02:21→21:47)
[2022-01-19 06:00] VITALS: BP 116/61
--- NOTE | 2022-01-19 06:08 | NUR ---
Problems reprioritized. Patient report given, questions answered & plan of care reviewed with stan.
--- NOTE | 2022-01-19 06:58 | NUR ---
Patient in room PCU 3022. I have received report from HEATHER and had the opportunity to ask questions and assume patient care.
[2022-01-19] MEDS: CICLESONIDE NS SCH (08:00)
[2022-01-19] MEDS: multivitamins, therapeutics tablet PO SCH (08:00)
[2022-01-19] MEDS: K and/or MAG REPLACEMENT MC SCH ×2 (08:00→19:14)
[2022-01-19] MEDS: diphenoxylate/atropine tablet (Lomotil) PO SCH ×3 (08:00→21:45)
[2022-01-19] MEDS: NUT.TX.IMPAIRED DIGEST FXN (Ensure Clear) 237 ML PO SCH ×3 (08:00→18:00)
[2022-01-19] MEDS: FLECTOR TOP SCH ×2 (08:00→20:00)
[2022-01-19] MEDS: aspirin 81mg tab.chew PO SCH (08:30)
[2022-01-19] MEDS: propafenone 150mg tablet PO SCH ×2 (09:12→19:28)
[2022-01-19] MEDS: enoxaparin 60mg/0.6ml syringe SUBCUT SCH ×2 (09:13→19:27)
[2022-01-19] MEDS: pantoprazole 40mg Tablet.DR PO SCH (09:13)
[2022-01-19] MEDS: losartan 50mg tablet PO SCH (09:14)
[2022-01-19] MEDS: predniSONE 1 mg tablet PO SCH (09:15)
[2022-01-19] MEDS: sulfamethoxazole/trimethoprim DS (800/160mg) tablet PO SCH ×2 (10:06→19:27)
[2022-01-19 11:00] VITALS: BP 98/54
[2022-01-19 18:00] VITALS: BP 105/57
--- NOTE | 2022-01-19 18:30 | NUR ---
Patient in room PCU 3022. I have received report from stan and had the opportunity to ask questions and assume patient care.
[2022-01-19] MEDS: tizanidine 4mg tablet PO SCH (21:45)
[2022-01-19] MEDS: cyclobenzaprine 10mg tablet PO SCH (21:45)
[2022-01-19] MEDS: traZODone 50mg tablet PO SCH (21:46)
[2022-01-19 22:00] VITALS: BP 120/69
[2022-01-20] MEDS: HYDROcodone/acetaminophen 10/325mg tab PO PRN ×6 (01:47→22:16)
--- NOTE | 2022-01-20 03:10 | NUR ---
In agreement with LEHR OPERATOR assessment,
[2022-01-20 06:00] VITALS: BP 108/58
--- NOTE | 2022-01-20 06:48 | NUR ---
Problems reprioritized. Patient report given, questions answered & plan of care reviewed with
[2022-01-20] MEDS: FLECTOR TOP SCH ×2 (08:00→20:00)
[2022-01-20] MEDS: NUT.TX.IMPAIRED DIGEST FXN (Ensure Clear) 237 ML PO SCH ×3 (08:00→18:00)
[2022-01-20] MEDS: CICLESONIDE NS SCH (08:00)
[2022-01-20] MEDS: K and/or MAG REPLACEMENT MC SCH ×2 (08:00→20:00)
[2022-01-20] MEDS: multivitamins, therapeutics tablet PO SCH (08:48)
[2022-01-20] MEDS: aspirin 81mg tab.chew PO SCH (08:48)
[2022-01-20] MEDS: pantoprazole 40mg Tablet.DR PO SCH (08:49)
[2022-01-20] MEDS: gabapentin 300mg capsule PO SCH ×2 (08:49→17:55)
[2022-01-20] MEDS: diphenoxylate/atropine tablet (Lomotil) PO SCH ×3 (08:49→21:08)
[2022-01-20] MEDS: magnesium oxide 400mg tablet PO SCH ×2 (08:49→17:55)
[2022-01-20] MEDS: sulfamethoxazole/trimethoprim DS (800/160mg) tablet PO SCH ×2 (08:49→21:07)
[2022-01-20] MEDS: predniSONE 1 mg tablet PO SCH (08:50)
[2022-01-20] MEDS: losartan 50mg tablet PO SCH (08:51)
[2022-01-20] MEDS: propafenone 150mg tablet PO SCH ×2 (09:49→21:09)
[2022-01-20] MEDS: enoxaparin 60mg/0.6ml syringe SUBCUT SCH ×2 (09:50→21:07)
--- NOTE | 2022-01-20 12:03 | NUR ---
Received VM from RN regarding ONS not being available and states pt reports he will not drink any Ensure other than the Ensure Clear. Unable to reach RN at this time though d/w charger that Ensure Clear is out of stock and unable to be ordered at this time and there is no substitution. Also d/w charger recommendation to discontinue ONS as it is not indicated d/t pt documented with 75-100% PO intake throughout LOS meeting estimated nutrient needs. Addendum: 01/20/22 at [address] Amended: Links added.
[2022-01-20 19:37] VITALS: BP 121/71
--- NOTE | 2022-01-20 19:43 | NUR ---
Surgical island dressing is change, saturated serious drainage.
[2022-01-20] MEDS: traZODone 50mg tablet PO SCH (21:08)
[2022-01-20] MEDS: cyclobenzaprine 10mg tablet PO SCH (21:08)
[2022-01-20] MEDS: tizanidine 4mg tablet PO SCH (21:08)
[2022-01-20 22:00] VITALS: BP 111/60
[2022-01-20] MEDS: ciprofloxacin 250mg tablet PO SCH (22:15)
[2022-01-21] MEDS: magnesium oxide 400mg tablet PO SCH ×4 (00:10→23:18)
[2022-01-21] MEDS: gabapentin 300mg capsule PO SCH ×4 (00:10→23:18)
[2022-01-21 02:00] VITALS: BP 92/54
[2022-01-21] MEDS: HYDROcodone/acetaminophen 10/325mg tab PO PRN ×6 (02:03→22:28)
--- NOTE | 2022-01-21 05:33 | NUR ---
Pt noted to have soft blood pressure at 0200 am vitals: 92/54
[2022-01-21 06:00] VITALS: BP_SYST 112; BP_SYST 153; BP_DIAS 58; BP_DIAS 82
--- NOTE | 2022-01-21 06:57 | NUR ---
Patient in room PCU 3022. I have received report from Will RN and had the opportunity to ask questions and assume patient care.
[2022-01-21] MEDS: K and/or MAG REPLACEMENT MC SCH ×2 (08:00→20:00)
[2022-01-21] MEDS: FLECTOR TOP SCH ×2 (08:00→20:00)
[2022-01-21] MEDS: CICLESONIDE NS SCH (08:00)
[2022-01-21] MEDS: NUT.TX.IMPAIRED DIGEST FXN (Ensure Clear) 237 ML PO SCH ×3 (08:00→18:00)
[2022-01-21] MEDS: predniSONE 1 mg tablet PO SCH (08:06)
[2022-01-21] MEDS: multivitamins, therapeutics tablet PO SCH (08:07)
[2022-01-21] MEDS: pantoprazole 40mg Tablet.DR PO SCH (08:07)
[2022-01-21] MEDS: diphenoxylate/atropine tablet (Lomotil) PO SCH ×3 (08:07→19:30)
[2022-01-21] MEDS: aspirin 81mg tab.chew PO SCH (08:08)
[2022-01-21] MEDS: losartan 50mg tablet PO SCH (08:08)
[2022-01-21] MEDS: propafenone 150mg tablet PO SCH ×2 (08:09→19:30)
[2022-01-21] MEDS: enoxaparin 60mg/0.6ml syringe SUBCUT SCH ×2 (08:10→19:31)
[2022-01-21] MEDS: sulfamethoxazole/trimethoprim DS (800/160mg) tablet PO SCH ×2 (08:18→19:30)
[2022-01-21] MEDS: ciprofloxacin 250mg tablet PO SCH (10:00)
[2022-01-21 15:00] VITALS: BP 106/61
--- NOTE | 2022-01-21 16:46 | NUR ---
patient medicated x3 for back pain. with good result. Up working with PT using back brace see note. Seen by DR Orozco, and Dr Rashid. kareem present in room. Surgical wound to lower back draining small amount sero sang . changed x1. Patient states that the best dressing is paper tape and gauze. will continue to monitor
--- NOTE | 2022-01-21 18:47 | NUR ---
Problems reprioritized. Patient report given, questions answered & plan of care reviewed with Will RN.
[2022-01-21 18:59] VITALS: BP 99/66
[2022-01-21] MEDS: tizanidine 4mg tablet PO SCH (19:29)
[2022-01-21] MEDS: traZODone 50mg tablet PO SCH (19:30)
[2022-01-21] MEDS: cyclobenzaprine 10mg tablet PO SCH (19:30)
[2022-01-21] MEDS: linezolid 600mg tablet PO SCH (20:00)
[2022-01-21 22:00] VITALS: BP 93/51
[2022-01-21] MEDS: baclofen 10mg tablet PO PRN (23:20)
[2022-01-22] MEDS: HYDROcodone/acetaminophen 10/325mg tab PO PRN ×6 (02:17→22:06)
--- NOTE | 2022-01-22 02:19 | NUR ---
Unable to administer IV abx due to no IV access. pt refused IV placement stating that he's a hard stick and will require a PICC line.
--- NOTE | 2022-01-22 02:22 | NUR ---
Pt refused 0200 am vitals
[2022-01-22 06:00] VITALS: BP 122/67
[2022-01-22] MEDS: CICLESONIDE NS SCH (08:00)
[2022-01-22] MEDS: piperacillin/tazo 4.5gm/100ml 100 ML IV SCH ×3 (08:00→20:32)
[2022-01-22] MEDS: NUT.TX.IMPAIRED DIGEST FXN (Ensure Clear) 237 ML PO SCH ×3 (08:00→18:00)
[2022-01-22] MEDS: K and/or MAG REPLACEMENT MC SCH ×2 (08:00→20:00)
[2022-01-22] MEDS: FLECTOR TOP SCH ×2 (08:00→20:00)
[2022-01-22] MEDS: gabapentin 300mg capsule PO SCH ×3 (09:07→23:45)
[2022-01-22] MEDS: diphenoxylate/atropine tablet (Lomotil) PO SCH ×3 (09:07→20:32)
[2022-01-22] MEDS: pantoprazole 40mg Tablet.DR PO SCH (09:08)
[2022-01-22] MEDS: magnesium oxide 400mg tablet PO SCH ×3 (09:08→23:45)
[2022-01-22] MEDS: predniSONE 1 mg tablet PO SCH (09:08)
[2022-01-22] MEDS: multivitamins, therapeutics tablet PO SCH (09:08)
[2022-01-22] MEDS: losartan 50mg tablet PO SCH (09:09)
[2022-01-22] MEDS: enoxaparin 60mg/0.6ml syringe SUBCUT SCH ×2 (09:11→20:35)
[2022-01-22] MEDS: linezolid 600mg tablet PO SCH ×2 (09:12→20:34)
[2022-01-22] MEDS: propafenone 150mg tablet PO SCH ×2 (09:13→20:33)
[2022-01-22] MEDS: aspirin 81mg tab.chew PO SCH (09:19)
[2022-01-22 11:00] VITALS: BP 98/62
[2022-01-22] MEDS ORDERED: iohexol 300mg/ml 100ml inj. ONE (13:09)
[2022-01-22 15:00] VITALS: BP 108/49
--- NOTE | 2022-01-22 17:12 | NUR ---
Zosyn 1st dose is given at 12:40 today. The scheduled administration can not be adjusted per pharmacy.
[2022-01-22 18:00] VITALS: BP 116/66
--- NOTE | 2022-01-22 18:20 | NUR ---
Patient in room U 3022. I have received report from JO ANN Phillips and had the opportunity to ask questions and assume patient care. Patient is resting comfortably,just finished dinner.
[2022-01-22] MEDS: traZODone 50mg tablet PO SCH (20:33)
[2022-01-22] MEDS: cyclobenzaprine 10mg tablet PO SCH (20:33)
[2022-01-22] MEDS: tizanidine 4mg tablet PO SCH (20:33)
[2022-01-22 22:00] VITALS: BP 119/59
[2022-01-23] MEDS: HYDROcodone/acetaminophen 10/325mg tab PO PRN ×5 (03:39→19:57)
[2022-01-23] MEDS: piperacillin/tazo 4.5gm/100ml 100 ML IV SCH ×3 (04:40→19:56)
[2022-01-23 07:00] VITALS: BP 113/66
[2022-01-23] MEDS: propafenone 150mg tablet PO SCH ×2 (07:30→19:57)
[2022-01-23] MEDS: diphenoxylate/atropine tablet (Lomotil) PO SCH ×3 (07:30→19:57)
[2022-01-23] MEDS: aspirin 81mg tab.chew PO SCH (07:30)
[2022-01-23] MEDS: losartan 50mg tablet PO SCH (07:31)
[2022-01-23] MEDS: gabapentin 300mg capsule PO SCH ×2 (07:31→16:01)
[2022-01-23] MEDS: linezolid 600mg tablet PO SCH ×2 (07:31→19:58)
[2022-01-23] MEDS: predniSONE 1 mg tablet PO SCH (07:32)
[2022-01-23] MEDS: enoxaparin 60mg/0.6ml syringe SUBCUT SCH ×2 (07:32→19:56)
[2022-01-23] MEDS: magnesium oxide 400mg tablet PO SCH ×2 (07:32→16:01)
[2022-01-23] MEDS: pantoprazole 40mg Tablet.DR PO SCH (07:32)
[2022-01-23] MEDS: multivitamins, therapeutics tablet PO SCH (07:32)
[2022-01-23] MEDS: CICLESONIDE NS SCH (08:00)
[2022-01-23] MEDS: FLECTOR TOP SCH ×2 (08:00→20:00)
[2022-01-23] MEDS: K and/or MAG REPLACEMENT MC SCH ×2 (08:00→20:00)
[2022-01-23] MEDS: NUT.TX.IMPAIRED DIGEST FXN (Ensure Clear) 237 ML PO SCH ×3 (08:00→18:00)
[2022-01-23 11:00] VITALS: BP 104/55
[2022-01-23 15:00] VITALS: BP 117/61
[2022-01-23 18:00] VITALS: BP 131/74
[2022-01-23] MEDS: cyclobenzaprine 10mg tablet PO SCH (19:57)
[2022-01-23] MEDS: tizanidine 4mg tablet PO SCH (19:58)
[2022-01-23] MEDS: traZODone 50mg tablet PO SCH (21:54)
[2022-01-24] VITALS (7 sets, daily range): BP systolic 103–134; BP diastolic 56–71
[2022-01-24] MEDS: HYDROcodone/acetaminophen 10/325mg tab PO PRN ×7 (00:02→19:59)
[2022-01-24] MEDS: gabapentin 300mg capsule PO SCH ×3 (00:02→16:16)
[2022-01-24] MEDS: magnesium oxide 400mg tablet PO SCH ×3 (00:02→16:17)
[2022-01-24] MEDS: piperacillin/tazo 4.5gm/100ml 100 ML IV SCH ×3 (03:57→19:58)
[2022-01-24] MEDS: NUT.TX.IMPAIRED DIGEST FXN (Ensure Clear) 237 ML PO SCH ×3 (08:00→18:00)
[2022-01-24] MEDS: K and/or MAG REPLACEMENT MC SCH ×2 (08:00→20:00)
[2022-01-24] MEDS: FLECTOR TOP SCH ×2 (08:00→20:00)
[2022-01-24] MEDS: propafenone 150mg tablet PO SCH ×2 (08:14→20:00)
[2022-01-24] MEDS: linezolid 600mg tablet PO SCH ×2 (08:15→19:58)
[2022-01-24] MEDS: losartan 50mg tablet PO SCH (08:15)
[2022-01-24] MEDS: pantoprazole 40mg Tablet.DR PO SCH (08:16)
[2022-01-24] MEDS: multivitamins, therapeutics tablet PO SCH (08:16)
[2022-01-24] MEDS: aspirin 81mg tab.chew PO SCH (08:16)
[2022-01-24] MEDS: diphenoxylate/atropine tablet (Lomotil) PO SCH ×3 (08:17→22:36)
[2022-01-24] MEDS: predniSONE 1 mg tablet PO SCH (08:18)
[2022-01-24] MEDS: enoxaparin 60mg/0.6ml syringe SUBCUT SCH ×2 (08:18→19:59)
[2022-01-24] MEDS: traZODone 50mg tablet PO SCH (22:35)
[2022-01-24] MEDS: tizanidine 4mg tablet PO SCH (22:36)
[2022-01-25 02:00] VITALS: BP 102/60
[2022-01-25] MEDS: HYDROcodone/acetaminophen 10/325mg tab PO PRN ×4 (02:12→13:40)
--- NOTE | 2022-01-25 02:13 | NUR ---
[place] given at midnight, administration did not save.
[2022-01-25] MEDS: piperacillin/tazo 4.5gm/100ml 100 ML IV SCH ×2 (04:04→12:00)
[2022-01-25 07:16] VITALS: BP 114/60
[2022-01-25] MEDS: FLECTOR TOP SCH (08:00)
[2022-01-25] MEDS: NUT.TX.IMPAIRED DIGEST FXN (Ensure Clear) 237 ML PO SCH ×2 (08:00→13:00)
[2022-01-25] MEDS: K and/or MAG REPLACEMENT MC SCH (08:00)
[2022-01-25] MEDS: linezolid 600mg tablet PO SCH (08:40)
[2022-01-25] MEDS: pantoprazole 40mg Tablet.DR PO SCH (08:40)
[2022-01-25] MEDS: propafenone 150mg tablet PO SCH (08:40)
[2022-01-25] MEDS: enoxaparin 60mg/0.6ml syringe SUBCUT SCH (08:40)
[2022-01-25] MEDS: losartan 50mg tablet PO SCH (08:41)
[2022-01-25] MEDS: magnesium oxide 400mg tablet PO SCH ×2 (08:41)
[2022-01-25] MEDS: aspirin 81mg tab.chew PO SCH (08:42)
[2022-01-25] MEDS: diphenoxylate/atropine tablet (Lomotil) PO SCH ×2 (08:42→13:39)
[2022-01-25] MEDS: multivitamins, therapeutics tablet PO SCH (08:42)
[2022-01-25] MEDS: predniSONE 1 mg tablet PO SCH (08:42)
[2022-01-25] MEDS: gabapentin 300mg capsule PO SCH ×2 (08:45)
--- NOTE | 2022-01-25 09:06 | NUR ---
Reassessment: Pt continues on Regular diet eating mostly 100% of meals meeting needs at this time. Noted Ensure Clear TID still active though we are currently out of stock of that item and unable to get any at this time. Recommend d/c order. LB 01/24. No nutrition intervention implemented at this time, will continue to monitor. Recs: 1. Continue Regular diet as tolerated 2. Discontinue Ensure Clear TID; not indicated and currently out of stock 3. Bowel care per rx 4. Scaled wts Addendum: 01/25/22 at [address] Amended: Links added.
[2022-01-25 11:11] VITALS: BP 113/53
[2022-01-25] MEDS ORDERED: LINE600T14 PO (12:08)
[2022-01-25] MEDS ORDERED: FLO0.4C PO (12:08)
[2022-01-25] MEDS ORDERED: LEVO500T90 PO (12:08)
[2022-01-25] MEDS ORDERED: LACT1CAP26 PO (12:08)
[2022-01-25] MEDS ORDERED: ASPI81TA53 PO (12:08)
[2022-01-25] MEDS ORDERED: GABA300C PO (12:09)
== END 2022-01-25 14:39 | disposition home health service (06) | DRG 863 ==
LOC: CICU 2S 17:20 → UNDOADMIN 17:20 → CICU 2S 17:57 → PCU 3S 01-16 17:25
PROVIDERS: ADMIT Family Medicine; ATTEND Family Medicine
DX: T81.49XA Infection following a procedure, other surgical site, initial encounter (principal); T81.31XA Disruption of external operation (surgical) wound, not elsewhere classified, initial encounter; M62.838 Other muscle spasm; B96.5 Pseudomonas (aeruginosa) (mallei) (pseudomallei) as the cause of diseases classified elsewhere; B96.20 Unspecified Escherichia coli [E. coli] as the cause of diseases classified elsewhere; I48.91 Unspecified atrial fibrillation; B95.2 Enterococcus as the cause of diseases classified elsewhere; B95.7 Other staphylococcus as the cause of diseases classified elsewhere; D64.9 Anemia, unspecified; Y83.8 Other surgical procedures as the cause of abnormal reaction of the patient, or of later complication, without mention of misadventure at the time of the procedure; K58.0 Irritable bowel syndrome with diarrhea; G89.29 Other chronic pain; M54.9 Dorsalgia, unspecified; I10 Essential (primary) hypertension; Z79.82 Long term (current) use of aspirin; Z90.49 Acquired absence of other specified parts of digestive tract; Z88.0 Allergy status to penicillin; Z88.5 Allergy status to narcotic agent; Z88.8 Allergy status to other drugs, medicaments and biological substances; Z79.899 Other long term (current) drug therapy; Y92.89 Other specified places as the place of occurrence of the external cause
CPT/HCPCS: 36415; 72132; 80053; 80061; 83036; 83735; 84132; 85025; 87070; 87077; 87186; 97110; 97116; 97162; 97530; 97535; A6212; A6213; A6250; A6258; A6402; A6449; G0378; J1650; J2270; J2543; J3420; J3480; J3490; J7030; J7040; J7512; Q9967

== ENCOUNTER 2022-05-02 09:01 | Outpatient (CLI) | payer MEDICARE, OTHER ==
[~2022-05-02] VITALS: Ht 177.8 cm; Wt 69.4 kg
[~2022-05-02 09:01] MED LIST changes: +ASPI81TA53 PO; +BACL10TA2 PO; -CALC-336 PO; +CICL12.5 BOTHNARES; +GABA300C PO; +LACT1CAP26 PO; +LINE600T14 PO; -LORA2TAB96 PO; -MAGN400C PO; -OLME20TA14 PO; +OLME20TA74 PO; +PRE1T PO; -PRE5T PO; -PSYL575P22 PO; -TRAZ-251 PO; +TRAZ-256 PO
[2022-05-02] MEDS ORDERED: normal saline 500ml IV soln 500 ML IV ONE (09:35)
[2022-05-02] MEDS ORDERED: aminophylline 500mg/20ml vial IV PRN (09:35)
[2022-05-02] MEDS ORDERED: nitroGLYCERIN 0.4mg SUBLingual tab SL PRN (09:35)
[2022-05-02] MEDS ORDERED: regadenoson 0.4mg/5ml syringe IV ONE (09:35)
[2022-05-02] MEDS ORDERED: aminophylline inj. 0 ML IV ONE (10:14)
[2022-05-02 10:16] VITALS: BP 135/65
[2022-05-02 10:20] VITALS: BP 149/75
[2022-05-02 10:30] VITALS: BP 139/67
[2022-05-02 10:31] VITALS: BP 147/68
[2022-05-02 10:32] VITALS: BP 140/73
[2022-05-02 10:33] VITALS: BP 148/71
== END 2022-05-02 23:59 | disposition home or self-care (01) ==
LOC: RAD 09:01
PROVIDERS: ATTEND Internal Medicine Interventional Cardiology
DX: R06.02 Shortness of breath (principal); R07.2 Precordial pain; Z47.1 Aftercare following joint replacement surgery
CPT/HCPCS: 78452; 93017; A9500; J0280; J2785; J7040

== ENCOUNTER 2023-03-02 15:08 | Emergency (ER) | payer MEDICARE, OTHER ==
[~2023-03-02] VITALS: Ht 172.7 cm; Wt 75.0 kg
[2023-03-02 15:11] VITALS: BP 128/58; PULSE 81; RESP 18; TEMP 98.6; O2SAT 94
== END 2023-03-02 16:44 | disposition home or self-care (01) ==
LOC: ER 15:09
DX: M25.561 Pain in right knee (principal); I10 Essential (primary) hypertension; Z88.8 Allergy status to other drugs, medicaments and biological substances; Z88.0 Allergy status to penicillin; Z88.1 Allergy status to other antibiotic agents; Z79.82 Long term (current) use of aspirin; Z79.899 Other long term (current) drug therapy; Z90.49 Acquired absence of other specified parts of digestive tract; Z98.890 Other specified postprocedural states
CPT/HCPCS: 29505; 99283

== ENCOUNTER 2023-03-19 12:21 | Emergency (ER) | payer MEDICARE, OTHER ==
[~2023-03-19] VITALS: Ht 162.6 cm; Wt 62.2 kg
[2023-03-19 12:22] VITALS: BP 115/55; PULSE 68; RESP 16; TEMP 97.6; O2SAT 96
[2023-03-19] MEDS ORDERED: BENZ142C9 TOP (16:05)
== END 2023-03-19 16:40 | disposition home or self-care (01) ==
LOC: ER 12:22
DX: L66.2 Folliculitis decalvans (principal); I11.0 Hypertensive heart disease with heart failure; Z88.0 Allergy status to penicillin; Z88.8 Allergy status to other drugs, medicaments and biological substances; Z79.899 Other long term (current) drug therapy; Z79.1 Long term (current) use of non-steroidal anti-inflammatories (NSAID); Z79.2 Long term (current) use of antibiotics
CPT/HCPCS: 99282

== ENCOUNTER 2023-04-30 00:31 | Emergency (ER) | payer MEDICARE, OTHER ==
[~2023-04-30] VITALS: Ht 177.8 cm; Wt 73.6 kg
[~2023-04-30 00:31] MED LIST changes: +BENZ142C9 TOP
[2023-04-30 07:09] VITALS: TEMP 98
[2023-04-30 08:09] LABS: BASOPHILS # (AUTO) 0.1 X10'3 (0-0.2); BASOPHILS % (AUTO) 0.9 % (0-1); EOSINOPHILS # (AUTO) 0.1 X10'3 (0-0.9); EOSINOPHILS % (AUTO) 1.5 % (0-6); HEMATOCRIT 37.7 % (42.0-52.0); HEMOGLOBIN 12.7 g/dl (14.0-17.9); LYMPHOCYTES # (AUTO) 1.9 X10'3 (1.1-4.8); LYMPHOCYTES % (AUTO) 22.7 % (21-51); MEAN CORPUSCULAR HEMOGLOBIN 33.3 PG (27.0-31.0); MEAN CORPUSCULAR HGB CONC 33.8 g/dL (33.0-36.5); MEAN CORPUSCULAR VOLUME 98.7 FL (78-98); MEAN PLATELET VOLUME 7.7 FL (7.4-10.4); MONOCYTES % (AUTO) 11.8 % (2-12); NEUTROPHILS # (AUTO) 5.2 X10'3 (1.8-7.7); NEUTROPHILS % (AUTO) 63.1 % (42-75); PLATELET COUNT 154 X10'3 (140-440); RED BLOOD COUNT 3.82 X10'6 (4.70-6.10); RED CELL DISTRIBUTION WIDTH 14.9 % (11.5-14.5); WHITE BLOOD COUNT 8.3 X10'3 (4.5-11.0)
[2023-04-30 08:24] VITALS: BP 119/69; PULSE 71; O2SAT 97
[2023-04-30 08:24] LABS: ALANINE AMINOTRANSFERASE 43 U/L (12-78); ALBUMIN 3.3 G/DL (3.4-5.0); ALBUMIN/GLOBULIN RATIO 1.1 (1.1-1.5); ALKALINE PHOSPHATASE 72 IU/L (46-116); ANION GAP 12 (8-16); ASPARTATE AMINO TRANSFERASE 33 U/L (10-37); BILIRUBIN,TOTAL 0.5 MG/DL (0.1-1.0); BLOOD UREA NITROGEN 31 MG/DL (7-18); BUN/CREATININE RATIO 20.5 (10.0-20.0); CALCIUM 8.6 MG/DL (8.5-10.1); CHLORIDE 105 MMOL/L (99-107); CREATININE 1.51 MG/DL (0.60-1.10); GLUCOSE 105 MG/DL (70-104); POTASSIUM 3.8 MMOL/L (3.5-5.1); SODIUM 133 MMOL/L (135-145); TOTAL CARBON DIOXIDE 15.7 MMOL/L (24-32); TOTAL PROTEIN 6.4 G/DL (6.4-8.2); eCRCL 42 ML/MIN; eGFR 45 ML/MIN
[2023-04-30 08:27] LABS: LIPASE 30 U/L (16-77)
[2023-04-30 08:37] LABS: BILIRUBIN,URINE NEGATIVE (Neg); CLARITY,URINE CLEAR (Clear); COLOR,URINE YELLOW (Yellow); GLUCOSE, URINE NEGATIVE (Neg); KETONES,URINE NEGATIVE (Neg); LEUKOCYTE ESTERASE ,URINE NEGATIVE (Neg); NITRITES, URINE NEGATIVE (Neg); OCCULT BLOOD,URINE NEGATIVE (Neg); PROTEIN,URINE TRACE mg/dl (Neg); UROBILINOGEN,URINE 0.2 E.U/dL (0.2-1.0)
[2023-04-30 08:46] LABS: UA COLLECTION TYPE CLN CATCH MIDSTREAM
[2023-04-30 08:47] LABS: SQUAMOUS EPITHELIAL CELL,UR FEW /LPF (FEW)
[2023-04-30 08:48] LABS: BACTERIA,URINE FEW /HPF (Neg); HYALINE CASTS 0-3 /LPF (NEGATIVE); RBC,URINE 0-2 /HPF (0-2); WBC,URINE 0-4 /HPF (0-4)
[2023-04-30] MEDS ORDERED: ketorolac tromethamine 15mg/ml inj. IV ONE (08:55)
[2023-04-30 09:03] VITALS: RESP 17
== END 2023-04-30 18:14 | disposition home or self-care (01) ==
LOC: ER 00:32
DX: K40.90 Unilateral inguinal hernia, without obstruction or gangrene, not specified as recurrent (principal)
CPT/HCPCS: 36415; 74176; 80053; 81001; 83690; 85025; 96374; 99285; J1885

== ENCOUNTER 2023-10-14 21:16 | Observation (INO) | payer MEDICARE, OTHER ==
[~2023-10-14] VITALS: Ht 167.6 cm; Wt 64.8 kg
[2023-10-14 22:13] LABS: ALBUMIN 3.6 G/DL (3.4-5.0); ANION GAP 9 (8-16); BLOOD UREA NITROGEN 21 MG/DL (7-18); BUN/CREATININE RATIO 18.3 (10.0-20.0); CALCIUM 8.4 MG/DL (8.5-10.1); CHLORIDE 101 MMOL/L (99-107); CREATININE 1.15 MG/DL (0.60-1.10); GLUCOSE 122 MG/DL (70-104); POTASSIUM 3.8 MMOL/L (3.5-5.1); SODIUM 134 MMOL/L (135-145); TOTAL CARBON DIOXIDE 24.4 MMOL/L (24-32); eCRCL 48 ML/MIN; eGFR 62 ML/MIN
[2023-10-14 22:30] LABS: BASOPHILS % (AUTO) 0.7 % (0-1); EOSINOPHILS # (AUTO) 0.1 X10'3 (0-0.9); EOSINOPHILS % (AUTO) 1.8 % (0-6); HEMOGLOBIN 12.7 g/dl (14.0-17.9); LYMPHOCYTES # (AUTO) 1.3 X10'3 (1.1-4.8); LYMPHOCYTES % (AUTO) 22.9 % (21-51); MEAN CORPUSCULAR HEMOGLOBIN 34.7 PG (27.0-31.0); MEAN CORPUSCULAR HGB CONC 34.2 g/dL (33.0-36.5); MEAN CORPUSCULAR VOLUME 101.5 FL (78-98); MEAN PLATELET VOLUME 8.4 FL (7.4-10.4); MONOCYTES # (AUTO) 0.5 X10'3 (0-0.9); MONOCYTES % (AUTO) 8.9 % (2-12); NEUTROPHILS # (AUTO) 3.8 X10'3 (1.8-7.7); NEUTROPHILS % (AUTO) 65.7 % (42-75); PLATELET COUNT 180 X10'3 (140-440); RED BLOOD COUNT 3.65 X10'6 (4.70-6.10); RED CELL DISTRIBUTION WIDTH 13.3 % (11.5-14.5); WHITE BLOOD COUNT 5.8 X10'3 (4.5-11.0)
[2023-10-15] VITALS (11 sets, daily range): BP systolic 144–188; BP diastolic 62–84; PULSE 58–105; RESP 16–22; TEMP 97.8–98.1; O2SAT 94–99
[2023-10-15] MEDS: morphine 4 MG/ML inj SYRINge IV ONE (00:16)
[2023-10-15] MEDS: ondansetron/PF 4mg/2ml inj IV ONE (00:16)
[2023-10-15] MEDS: nitroGLYCERIN 1gm ointment UD TP ONE (00:16)
[2023-10-15] MEDS: normal saline 500ml IV soln 500 ML IV SCH (00:17)
[2023-10-15] MEDS: aspirin 325mg tablet, delayed-release (Ecotrin) PO ONE (00:17)
[2023-10-15 00:55] LABS: D-DIMER 0.81 MG/L FEU (0-0.50)
[2023-10-15] MEDS ORDERED: DOXY-224 PO (00:57)
[2023-10-15] MEDS ORDERED: LORA-269 PO (00:57)
[2023-10-15] MEDS ORDERED: IRON118L2 (00:59)
[2023-10-15] MEDS ORDERED: iohexol 350MG/ML 100ml bottle IV ONE (01:24)
[2023-10-15] MEDS ORDERED: magnesium 4gm in 100ml NS 100 ML IV PRN (02:05)
[2023-10-15] MEDS ORDERED: magnesium hydroxide 30ml (MOM) UD suspension PO PRN (02:05)
[2023-10-15] MEDS ORDERED: ondansetron/PF 4mg/2ml inj IV PRN (02:05)
[2023-10-15] MEDS ORDERED: magnesium 2GM in 50ml NS 50 ML IV PRN (02:05)
[2023-10-15] MEDS ORDERED: morphine 2 MG/ML inj. syringe IV PRN (02:05)
[2023-10-15] MEDS ORDERED: potassium Cl 20 mEq SR tablet PO PRN ×2 (02:05)
[2023-10-15] MEDS ORDERED: potassium Cl 40MEQ/1/2NS 520ml 520 ML IV PRN (02:05)
[2023-10-15] MEDS ORDERED: mag hydrox/Alum hydrox/simeth 30ml oral suspension PO PRN (02:05)
[2023-10-15] MEDS ORDERED: acetaminophen 325mg tablet PO PRN (02:05)
[2023-10-15] MEDS ORDERED: magnesium Cl slow-release 64mg tablet PO PRN (02:05)
[2023-10-15] MEDS ORDERED: aminophylline 250mg/10ml inj. IV PRN (02:10)
[2023-10-15] MEDS ORDERED: nitroGLYCERIN 0.4mg SUBLingual tab SL PRN (02:10)
[2023-10-15] MEDS ORDERED: metoprolol tartrate 1mg/ml inj IV PRN (02:10)
[2023-10-15] MEDS ORDERED: LORazepam 1 MG tablet PO PRN (02:15)
[2023-10-15] MEDS ORDERED: baclofen 10mg tablet PO PRN (02:15)
[2023-10-15] MEDS ORDERED: HYDROcodone/acetaminophen 10/325mg tab PO PRN (02:15)
[2023-10-15 04:00] LABS: FREE T4 (FREE THYROXINE) 0.67 NG/DL (0.73-1.40); THYROID STIMULATING HORMONE 2.45 ulU/ml (0.34-4.50)
[2023-10-15] MEDS: morphine 2 MG/ML inj. syringe IV PRN (05:28)
[2023-10-15] MEDS: normal saline 1000ml 1,000 ML IV SCH (05:29)
[2023-10-15] MEDS: pantoprazole 40mg Tablet.DR PO SCH (07:58)
[2023-10-15] MEDS: flecainide 50mg tablet PO SCH (07:58)
[2023-10-15] MEDS: aspirin 81mg tab.chew PO SCH (07:59)
[2023-10-15] MEDS: docusate sod 100mg capsule PO SCH (07:59)
[2023-10-15] MEDS: DOXYCYCLINE 100MG CAPSULE PO SCH (07:59)
[2023-10-15] MEDS ORDERED: heparin, porcine 5000 units/ml vial SQ SCH (08:00)
[2023-10-15] MEDS: K and/or MAG REPLACEMENT MC SCH (08:00)
[2023-10-15] MEDS ORDERED: PROPAFENONE HCL PO SCH (08:00)
[2023-10-15] MEDS: losartan 50mg tablet PO SCH (08:01)
[2023-10-15 09:43] LABS: BASOPHILS % (AUTO) 0.5 % (0-1); EOSINOPHILS # (AUTO) 0.2 X10'3 (0-0.9); EOSINOPHILS % (AUTO) 2.7 % (0-6); HEMATOCRIT 38.6 % (42.0-52.0); HEMOGLOBIN 13.1 g/dl (14.0-17.9); LYMPHOCYTES # (AUTO) 1.8 X10'3 (1.1-4.8); LYMPHOCYTES % (AUTO) 31.2 % (21-51); MEAN CORPUSCULAR HEMOGLOBIN 34.6 PG (27.0-31.0); MEAN CORPUSCULAR HGB CONC 33.9 g/dL (33.0-36.5); MEAN CORPUSCULAR VOLUME 102.1 FL (78-98); MEAN PLATELET VOLUME 7.8 FL (7.4-10.4); MONOCYTES # (AUTO) 0.6 X10'3 (0-0.9); MONOCYTES % (AUTO) 10.3 % (2-12); NEUTROPHILS # (AUTO) 3.2 X10'3 (1.8-7.7); NEUTROPHILS % (AUTO) 55.3 % (42-75); PLATELET COUNT 175 X10'3 (140-440); RED BLOOD COUNT 3.78 X10'6 (4.70-6.10); RED CELL DISTRIBUTION WIDTH 13.4 % (11.5-14.5); WHITE BLOOD COUNT 5.8 X10'3 (4.5-11.0)
[2023-10-15 11:22] LABS: ALANINE AMINOTRANSFERASE 92 U/L (12-78); ALBUMIN 3.3 G/DL (3.4-5.0); ALBUMIN/GLOBULIN RATIO 1.1 (1.1-1.5); ALKALINE PHOSPHATASE 90 IU/L (46-116); ANION GAP 10 (8-16); ASPARTATE AMINO TRANSFERASE 70 U/L (10-37); BILIRUBIN,TOTAL 0.7 MG/DL (0.1-1.0); BLOOD UREA NITROGEN 16 MG/DL (7-18); BUN/CREATININE RATIO 17.8 (10.0-20.0); CALCIUM 8.4 MG/DL (8.5-10.1); CHLORIDE 106 MMOL/L (99-107); GLUCOSE 107 MG/DL (70-104); POTASSIUM 3.5 MMOL/L (3.5-5.1); SODIUM 138 MMOL/L (135-145); TOTAL CARBON DIOXIDE 22.4 MMOL/L (24-32); TOTAL PROTEIN 6.3 G/DL (6.4-8.2); eCRCL 61 ML/MIN; eGFR 82 ML/MIN
[2023-10-15] MEDS: regadenoson 0.4mg/5ml syringe IV PRN (12:13)
[2023-10-15] MEDS ORDERED: hyDRALAzine 10mg tablet PO ONE (14:50)
[2023-10-15] MEDS ORDERED: hydrALAZINE 20mg/ml inj. IV ONE (15:05)
[2023-10-15] MEDS: cloNIDine 0.1 mg tablet PO SCH (15:26)
[2023-10-15] MEDS ORDERED: CLON0.3T47 PO (17:10)
[2023-10-15] MEDS ORDERED: TAM50T PO (17:10)
[2023-10-15] MEDS ORDERED: traZODone 50mg tablet PO SCH (21:00)
== END 2023-10-15 17:55 | disposition home or self-care (01) ==
LOC: ER 21:17 → ED HOLD 10-15 02:07 → PCU 3S 10-15 03:45
PROVIDERS: ADMIT Internal Medicine; ATTEND Family Medicine
DX: I16.0 Hypertensive urgency (principal); I48.20 Chronic atrial fibrillation, unspecified; I10 Essential (primary) hypertension; R79.89 Other specified abnormal findings of blood chemistry; G89.29 Other chronic pain; Z88.0 Allergy status to penicillin; Z88.5 Allergy status to narcotic agent; Z88.8 Allergy status to other drugs, medicaments and biological substances; Z90.49 Acquired absence of other specified parts of digestive tract
CPT/HCPCS: 36415; 71045; 71275; 78452; 80048; 80053; 83036; 84439; 84443; 84484; 85025; 85379; 87081; 93005; 93017; 93306; 96361; 96374; 96375; 99285; A9500; G0378; J2270; J2405; J2785; J3490; J7030; J7040; Q9967

== ENCOUNTER 2023-12-31 14:19 | Inpatient (IN) | payer MEDICARE, OTHER ==
[~2023-12-31] VITALS: Ht 170.2 cm; Wt 66.7 kg
[~2023-12-31 14:19] MED LIST changes: -BENZ142C9 TOP; -CICL12.5 BOTHNARES; +CLON0.3T47 PO; +DOXY-224 PO; -GABA300C PO; +IRON118L2; -LACT1CAP26 PO; -LINE600T14 PO; +LORA-269 PO; -MULT-1085 PO; -PROP225C9 PO; +TAM50T PO
[2023-12-31] MEDS ORDERED: potassium Cl 20 mEq SR tablet PO STA (15:00)
[2023-12-31 15:17] LABS: BASOPHILS % (AUTO) 0.2 % (0-1); EOSINOPHILS % (AUTO) 0.2 % (0-6); HEMATOCRIT 36.8 % (42.0-52.0); HEMOGLOBIN 12.6 g/dl (14.0-17.9); LYMPHOCYTES # (AUTO) 0.8 X10'3 (1.1-4.8); LYMPHOCYTES % (AUTO) 10.1 % (21-51); MEAN CORPUSCULAR HEMOGLOBIN 35.9 PG (27.0-31.0); MEAN CORPUSCULAR HGB CONC 34.2 g/dL (33.0-36.5); MEAN PLATELET VOLUME 7.2 FL (7.4-10.4); MONOCYTES # (AUTO) 0.6 X10'3 (0-0.9); MONOCYTES % (AUTO) 7.5 % (2-12); NEUTROPHILS # (AUTO) 6.7 X10'3 (1.8-7.7); PLATELET COUNT 204 X10'3 (140-440); RED CELL DISTRIBUTION WIDTH 14.6 % (11.5-14.5); WHITE BLOOD COUNT 8.1 X10'3 (4.5-11.0)
[2023-12-31 15:26] LABS: ALBUMIN 4.1 G/DL (3.4-5.0); ANION GAP 10 (8-16); BLOOD UREA NITROGEN 14 MG/DL (7-18); BUN/CREATININE RATIO 11.7 (10.0-20.0); CALCIUM 8.8 MG/DL (8.5-10.1); CHLORIDE 102 MMOL/L (99-107); GLUCOSE 113 MG/DL (70-104); SODIUM 133 MMOL/L (135-145); TOTAL CARBON DIOXIDE 20.7 MMOL/L (24-32); eCRCL 47 ML/MIN; eGFR 59 ML/MIN
[2023-12-31] MEDS: ketorolac tromethamine 15mg/ml inj. IM ONE (15:52)
[2023-12-31 16:28] LABS: BILIRUBIN,URINE NEGATIVE (Neg); CLARITY,URINE SLIGHTLY CLOUDY (Clear); COLOR,URINE YELLOW (Yellow); GLUCOSE, URINE NEGATIVE (Neg); KETONES,URINE NEGATIVE (Neg); LEUKOCYTE ESTERASE ,URINE NEGATIVE (Neg); NITRITES, URINE NEGATIVE (Neg); OCCULT BLOOD,URINE NEGATIVE (Neg); PROTEIN,URINE NEGATIVE (Neg); UROBILINOGEN,URINE 0.2 E.U/dL (0.2-1.0)
[2023-12-31 16:33] LABS: UA COLLECTION TYPE URINAL
[2023-12-31 16:38] LABS: SQUAMOUS EPITHELIAL CELL,UR FEW /LPF (FEW)
[2023-12-31 16:39] LABS: BACTERIA,URINE 1+ /HPF (Neg); MUCUS STRANDS FEW /LPF (Neg); RBC,URINE 0-2 /HPF (0-2); WBC,URINE 0-4 /HPF (0-4)
[2023-12-31] MEDS ORDERED: bisacodyl 10mg suppository rectal RC PRN (19:10)
[2023-12-31] MEDS ORDERED: acetaminophen 325mg tablet PO PRN (19:10)
[2023-12-31] MEDS ORDERED: magnesium 2GM in 50ml NS 50 ML IV PRN (19:10)
[2023-12-31] MEDS ORDERED: potassium Cl 20 mEq SR tablet PO PRN (19:10)
[2023-12-31] MEDS ORDERED: mag hydrox/Alum hydrox/simeth 30ml oral suspension PO PRN (19:10)
[2023-12-31] MEDS ORDERED: potassium Cl 40MEQ/1/2NS 520ml 520 ML IV PRN (19:10)
[2023-12-31] MEDS ORDERED: ondansetron/PF 4mg/2ml inj IV PRN (19:10)
[2023-12-31] MEDS ORDERED: diphenoxylate/atropine 2.5mg/0.025mg per 5ml oral solution PO PRN (19:10)
[2023-12-31] MEDS ORDERED: magnesium 4gm in 100ml NS 100 ML IV PRN (19:10)
[2023-12-31] MEDS ORDERED: diphenoxylate/atropine tablet (Lomotil) PO PRN (19:30)
[2023-12-31] MEDS: K and/or MAG REPLACEMENT MC SCH (20:00)
[2023-12-31] MEDS: enoxaparin 40mg/0.4ml syringe SQ SCH (20:00)
[2023-12-31] MEDS: docusate sod 100mg capsule PO SCH (20:00)
[2023-12-31] MEDS: flecainide 50mg tablet PO SCH (20:16)
[2023-12-31] MEDS ORDERED: TRAZ-251 PO (20:58)
[2023-12-31] MEDS ORDERED: QUELT PO (21:00)
[2023-12-31 21:45] VITALS: RESP 16; O2SAT 98
[2023-12-31 22:00] VITALS: BP 154/91; PULSE 93; RESP 15; TEMP 98.1; O2SAT 98
[2023-12-31] MEDS ORDERED: QUET-1 PO (23:01)
[2023-12-31] MEDS ORDERED: QUET50TA PO (23:01)
[2023-12-31] MEDS: HYDROcodone/acetaminophen 10/325mg tab PO PRN (23:49)
[2023-12-31] MEDS: diazepam inj 5 MG/ML inj. IV PRN (23:49)
[2024-01-01 00:25] VITALS: BP 167/77; PULSE 80; RESP 16; TEMP 98.1; O2SAT 95
[2024-01-01 06:00] VITALS: BP 173/82; PULSE 89; RESP 15; TEMP 98.3; O2SAT 97
[2024-01-01 07:09] LABS: BASOPHILS # (AUTO) 0.1 X10'3 (0-0.2); BASOPHILS % (AUTO) 0.7 % (0-1); EOSINOPHILS # (AUTO) 0.1 X10'3 (0-0.9); EOSINOPHILS % (AUTO) 0.7 % (0-6); HEMATOCRIT 35.8 % (42.0-52.0); HEMOGLOBIN 12.3 g/dl (14.0-17.9); LYMPHOCYTES # (AUTO) 0.8 X10'3 (1.1-4.8); LYMPHOCYTES % (AUTO) 8.9 % (21-51); MEAN CORPUSCULAR HEMOGLOBIN 35.7 PG (27.0-31.0); MEAN CORPUSCULAR HGB CONC 34.4 g/dL (33.0-36.5); MEAN CORPUSCULAR VOLUME 103.5 FL (78-98); MEAN PLATELET VOLUME 7.1 FL (7.4-10.4); MONOCYTES # (AUTO) 0.8 X10'3 (0-0.9); MONOCYTES % (AUTO) 8.2 % (2-12); NEUTROPHILS # (AUTO) 7.6 X10'3 (1.8-7.7); NEUTROPHILS % (AUTO) 81.5 % (42-75); PLATELET COUNT 182 X10'3 (140-440); RED BLOOD COUNT 3.45 X10'6 (4.70-6.10); RED CELL DISTRIBUTION WIDTH 14.8 % (11.5-14.5); WHITE BLOOD COUNT 9.4 X10'3 (4.5-11.0)
[2024-01-01 07:48] LABS: ALANINE AMINOTRANSFERASE 89 U/L (12-78); ALBUMIN 3.6 G/DL (3.4-5.0); ALBUMIN/GLOBULIN RATIO 1.4 (1.1-1.5); ALKALINE PHOSPHATASE 71 IU/L (46-116); ANION GAP 13 (8-16); ASPARTATE AMINO TRANSFERASE 51 U/L (10-37); BILIRUBIN,TOTAL 0.7 MG/DL (0.1-1.0); BLOOD UREA NITROGEN 12 MG/DL (7-18); BUN/CREATININE RATIO 10.8 (10.0-20.0); CALCIUM 8.4 MG/DL (8.5-10.1); CHLORIDE 101 MMOL/L (99-107); CREATININE 1.11 MG/DL (0.60-1.10); GLUCOSE 111 MG/DL (70-104); MAGNESIUM 1.5 MG/DL (1.5-2.4); POTASSIUM 3.3 MMOL/L (3.5-5.1); SODIUM 135 MMOL/L (135-145); TOTAL CARBON DIOXIDE 21.5 MMOL/L (24-32); TOTAL PROTEIN 6.2 G/DL (6.4-8.2); eCRCL 51 ML/MIN; eGFR 64 ML/MIN
[2024-01-01 08:00] VITALS: RESP 15; O2SAT 97
[2024-01-01] MEDS: potassium Cl 20 mEq SR tablet PO PRN (09:02)
[2024-01-01] MEDS: predniSONE 1 mg tablet PO SCH (09:03)
[2024-01-01 10:00] VITALS: BP 164/78; PULSE 85; RESP 18; TEMP 97.8; O2SAT 96
[2024-01-01] MEDS: chloestyramine/aspartame 4gm packet PO SCH (11:00)
[2024-01-01] MEDS ORDERED: ondansetron 4mg rapidly disintigrating tab PO PRN (14:45)
[2024-01-01] MEDS: diazepam 5mg tablet PO PRN (19:15)
[2024-01-01 20:00] VITALS: RESP 15; O2SAT 95
[2024-01-01] MEDS: polyethylene glycol 3350 17gm powd pack PO SCH (20:24)
[2024-01-01] MEDS: traZODone 150mg tablet PO SCH (20:26)
[2024-01-02 06:59] VITALS: BP 128/80; PULSE 110; RESP 16; TEMP 98.3; O2SAT 98
[2024-01-02 07:36] LABS: BASOPHILS % (AUTO) 0.3 % (0-1); EOSINOPHILS # (AUTO) 0.1 X10'3 (0-0.9); HEMATOCRIT 37.1 % (42.0-52.0); HEMOGLOBIN 12.7 g/dl (14.0-17.9); LYMPHOCYTES # (AUTO) 0.9 X10'3 (1.1-4.8); LYMPHOCYTES % (AUTO) 10.5 % (21-51); MEAN CORPUSCULAR HEMOGLOBIN 35.9 PG (27.0-31.0); MEAN CORPUSCULAR HGB CONC 34.2 g/dL (33.0-36.5); MEAN CORPUSCULAR VOLUME 104.9 FL (78-98); MEAN PLATELET VOLUME 7.3 FL (7.4-10.4); MONOCYTES # (AUTO) 1.2 X10'3 (0-0.9); MONOCYTES % (AUTO) 13.2 % (2-12); NEUTROPHILS # (AUTO) 6.8 X10'3 (1.8-7.7); PLATELET COUNT 185 X10'3 (140-440); RED BLOOD COUNT 3.53 X10'6 (4.70-6.10); RED CELL DISTRIBUTION WIDTH 14.9 % (11.5-14.5)
[2024-01-02 07:56] LABS: ALANINE AMINOTRANSFERASE 101 U/L (12-78); ALBUMIN 3.5 G/DL (3.4-5.0); ALBUMIN/GLOBULIN RATIO 1.3 (1.1-1.5); ALKALINE PHOSPHATASE 67 IU/L (46-116); ANION GAP 13 (8-16); ASPARTATE AMINO TRANSFERASE 60 U/L (10-37); BILIRUBIN,TOTAL 0.8 MG/DL (0.1-1.0); BLOOD UREA NITROGEN 17 MG/DL (7-18); BUN/CREATININE RATIO 14.5 (10.0-20.0); CALCIUM 8.7 MG/DL (8.5-10.1); CHLORIDE 100 MMOL/L (99-107); CREATININE 1.17 MG/DL (0.60-1.10); GLUCOSE 117 MG/DL (70-104); MAGNESIUM 1.4 MG/DL (1.5-2.4); POTASSIUM 3.5 MMOL/L (3.5-5.1); SODIUM 133 MMOL/L (135-145); TOTAL CARBON DIOXIDE 20.2 MMOL/L (24-32); TOTAL PROTEIN 6.1 G/DL (6.4-8.2); eCRCL 49 ML/MIN; eGFR 60 ML/MIN
[2024-01-02 14:19] VITALS: RESP 16
[2024-01-02] MEDS ORDERED: DIAZ-351 PO (14:51)
[2024-01-02] MEDS ORDERED: MAGN400C PO (15:28)
[2024-01-02] MEDS: magnesium oxide 400mg tablet PO ONE (15:29)
== END 2024-01-02 15:55 | disposition home health service (06) | DRG 551 ==
LOC: ER 14:20 → ED HOLD 19:18 → ORTHO 4S 21:30
PROVIDERS: ADMIT Family Medicine; ATTEND Family Medicine
DX: M51.36 Other intervertebral disc degeneration, lumbar region (principal); N17.0 Acute kidney failure with tubular necrosis; G83.4 Cauda equina syndrome; I48.20 Chronic atrial fibrillation, unspecified; M48.56XA Collapsed vertebra, not elsewhere classified, lumbar region, initial encounter for fracture; M62.838 Other muscle spasm; R56.9 Unspecified convulsions; M54.50 Low back pain, unspecified; K52.9 Noninfective gastroenteritis and colitis, unspecified; I10 Essential (primary) hypertension; G89.29 Other chronic pain; Z90.49 Acquired absence of other specified parts of digestive tract; Z88.1 Allergy status to other antibiotic agents; Z88.8 Allergy status to other drugs, medicaments and biological substances; Z88.5 Allergy status to narcotic agent; Z79.82 Long term (current) use of aspirin; Z79.899 Other long term (current) drug therapy; Z87.891 Personal history of nicotine dependence; Z88.0 Allergy status to penicillin
CPT/HCPCS: 36415; 70450; 71045; 72128; 72131; 72148; 80048; 80053; 81001; 82948; 83605; 83735; 84145; 85025; 87040; 87081; 96372; 97161; 97530; 99285; G0378; J1650; J1885; J3360; J7512

== ENCOUNTER → 2024-01-11 | Outpatient (CLI) | payer MEDICARE, OTHER ==
[~2024-01-11] MED LIST changes: -BACL10TA2 PO; +DIAZ-351 PO; -DOXY-224 PO; +MAGN400C PO; +QUELT PO; +QUET-1 PO; +QUET50TA PO; +TRAZ-251 PO
== END | disposition home or self-care (01) ==
LOC: MRI 10:24
PROVIDERS: ATTEND Family Medicine
DX: I67.82 Cerebral ischemia (principal); R25.1 Tremor, unspecified; G93.89 Other specified disorders of brain
CPT/HCPCS: 70551

== ENCOUNTER 2024-04-23 08:00 | Outpatient (CLI) | payer MEDICARE, OTHER ==
[2024-04-23 15:30] LABS: BASOPHILS % (AUTO) 0.3 % (0-1); EOSINOPHILS # (AUTO) 0.2 X10'3 (0-0.9); EOSINOPHILS % (AUTO) 2.4 % (0-6); LYMPHOCYTES # (AUTO) 1.3 X10'3 (1.1-4.8); LYMPHOCYTES % (AUTO) 15.4 % (21-51); MEAN CORPUSCULAR HEMOGLOBIN 34.3 PG (27.0-31.0); MEAN CORPUSCULAR VOLUME 103.7 FL (78-98); MEAN PLATELET VOLUME 7.4 FL (7.4-10.4); MONOCYTES # (AUTO) 0.6 X10'3 (0-0.9); MONOCYTES % (AUTO) 6.5 % (2-12); NEUTROPHILS # (AUTO) 6.6 X10'3 (1.8-7.7); NEUTROPHILS % (AUTO) 75.4 % (42-75); PRE OP HEMOGLOBIN 11.2 g/dL (14.0-17.9); PRE OP PLATELET COUNT 177 X10'3 (140-440); PRE OP WHITE BLOOD COUNT 8.7 10'3 (4.8-10.8); RED BLOOD COUNT 3.28 X10'6 (4.70-6.10); RED CELL DISTRIBUTION WIDTH 14.7 % (11.5-14.5)
[2024-04-23 16:10] LABS: ALBUMIN 4.1 G/DL (3.4-5.0); ALBUMIN/GLOBULIN RATIO 1.4 (1.1-1.5); ALKALINE PHOSPHATASE 70 IU/L (46-116); BLOOD UREA NITROGEN 39 MG/DL (7-18); BUN/CREATININE RATIO 26.5 (10.0-20.0); CALCIUM 9.1 MG/DL (8.5-10.1); CHLORIDE 112 MMOL/L (99-107); CREATININE 1.47 MG/DL (0.60-1.10); PRE OP ALT 64 U/L (30-65); PRE OP ANION GAP 8 (8-16); PRE OP AST 30 U/L (10-37); PRE OP BILIRUB, TOTAL 0.6 MG/DL (0.0-1.0); PRE OP GLUCOSE 108 MG/DL (70-104); PRE OP POTASSIUM 4.8 MMOL/L (3.4-5.1); PRE OP SODIUM 138 MMOL/L (135-145); TOTAL CARBON DIOXIDE 17.8 MMOL/L (24-32); eGFR 46 ML/MIN
[2024-04-23] MEDS ORDERED: [UNRECOGNIZED DRUG - OTHER] TOP (18:03)
[2024-04-23] MEDS ORDERED: TEST200V33 IM (18:03)
[2024-04-23] MEDS ORDERED: OLME-29 PO (18:03)
[2024-04-23] MEDS ORDERED: FURO40TA4 PO (18:03)
== END 2024-04-23 23:00 | disposition home or self-care (01) ==
LOC: LAB 08:00 → EDSTATUS 04-30 11:00
PROVIDERS: ATTEND Orthopaedic Surgery
DX: Z01.812 Encounter for preprocedural laboratory examination (principal); M17.11 Unilateral primary osteoarthritis, right knee
CPT/HCPCS: 36415; 80053; 85025; 87081

== ENCOUNTER 2024-08-07 09:51 | Inpatient (IN) | payer MEDICARE, OTHER ==
[~2024-08-07] VITALS: Ht 177.8 cm; Wt 62.0 kg
[~2024-08-07 09:51] MED LIST changes: -ASPI81TA53 PO; -CLON0.3T47 PO; -CYAN10007 IM; -DIAZ-351 PO; +FURO40TA4 PO; -IRON118L2; -MAGN400C PO; -META800T87 PO; +OLME-29 PO; -OLME20TA74 PO; -QUET-1 PO; -QUET50TA PO; +TEST200V33 IM; -TRAZ-251 PO; +[UNRECOGNIZED DRUG - OTHER] TOP; -[UNRECOGNIZED DRUG - OTHER] TOP
[2024-08-07 10:28] LABS: BILIRUBIN,URINE NEGATIVE (Neg); CLARITY,URINE CLEAR (Clear); COLOR,URINE YELLOW (Yellow); GLUCOSE, URINE NEGATIVE (Neg); KETONES,URINE NEGATIVE (Neg); LEUKOCYTE ESTERASE ,URINE NEGATIVE (Neg); NITRITES, URINE NEGATIVE (Neg); OCCULT BLOOD,URINE TRACE-INTACT (Neg); PH,URINE 5.5 (4.8-8.0); PROTEIN,URINE NEGATIVE (Neg); UROBILINOGEN,URINE 0.2 E.U/dL (0.2-1.0)
[2024-08-07 10:34] LABS: UA COLLECTION TYPE STRAIGHT CATH
[2024-08-07 10:36] LABS: BACTERIA,URINE NONE SEEN /HPF (Neg); RBC,URINE 0-2 /HPF (0-2); SQUAMOUS EPITHELIAL CELL,UR NONE SEEN /LPF (FEW); WBC,URINE NONE SEEN /HPF (0-4)
[2024-08-07 11:22] LABS: BASOPHILS % (AUTO) 0.3 % (0-1); EOSINOPHILS # (AUTO) 0.2 X10'3 (0-0.9); EOSINOPHILS % (AUTO) 2.1 % (0-6); HEMATOCRIT 34.2 % (42.0-52.0); HEMOGLOBIN 11.6 g/dl (14.0-17.9); LYMPHOCYTES # (AUTO) 0.8 X10'3 (1.1-4.8); MEAN CORPUSCULAR HEMOGLOBIN 35.5 PG (27.0-31.0); MEAN CORPUSCULAR HGB CONC 33.9 g/dL (33.0-36.5); MEAN CORPUSCULAR VOLUME 104.8 FL (78-98); MEAN PLATELET VOLUME 7.5 FL (7.4-10.4); MONOCYTES # (AUTO) 0.8 X10'3 (0-0.9); MONOCYTES % (AUTO) 10.1 % (2-12); NEUTROPHILS # (AUTO) 6.1 X10'3 (1.8-7.7); NEUTROPHILS % (AUTO) 77.5 % (42-75); PLATELET COUNT 177 X10'3 (140-440); RED BLOOD COUNT 3.26 X10'6 (4.70-6.10); RED CELL DISTRIBUTION WIDTH 14.6 % (11.5-14.5); WHITE BLOOD COUNT 7.8 X10'3 (4.5-11.0)
[2024-08-07 12:02] LABS: ALANINE AMINOTRANSFERASE 42 U/L (12-78); ALBUMIN 3.4 G/DL (3.4-5.0); ALBUMIN/GLOBULIN RATIO 1.5 (1.1-1.5); ALKALINE PHOSPHATASE 54 IU/L (46-116); ANION GAP 14 (8-16); ASPARTATE AMINO TRANSFERASE 55 U/L (10-37); BILIRUBIN,TOTAL 0.6 MG/DL (0.1-1.0); BLOOD UREA NITROGEN 39 MG/DL (7-18); BUN/CREATININE RATIO 18.3 (10.0-20.0); CHLORIDE 110 MMOL/L (99-107); CREATININE 2.13 MG/DL (0.60-1.10); GLUCOSE 99 MG/DL (70-104); MAGNESIUM 1.3 MG/DL (1.5-2.4); SODIUM 141 MMOL/L (135-145); TOTAL CARBON DIOXIDE 17.3 MMOL/L (24-32); TOTAL PROTEIN 5.7 G/DL (6.4-8.2); eCRCL 25 ML/MIN; eGFR 30 ML/MIN
[2024-08-07] MEDS: folic acid 1mg/0.2ml inj IV ONE (13:00)
[2024-08-07] MEDS ORDERED: ondansetron/PF 4mg/2ml inj IV PRN (13:25)
[2024-08-07] MEDS ORDERED: magnesium hydroxide 30ml (MOM) UD suspension PO PRN (13:25)
[2024-08-07] MEDS ORDERED: acetaminophen 325mg tablet PO PRN (13:25)
[2024-08-07] MEDS ORDERED: mag hydrox/Alum hydrox/simeth 30ml oral suspension PO PRN (13:25)
[2024-08-07] MEDS: ringers solution, lacted 1,000 ML IV SCH (13:40)
[2024-08-07] MEDS: ringers solution, lacted 1,000 ML IV STA (14:02)
[2024-08-07] MEDS: LORazepam 2 mg/ml vial IM ONE (14:16)
[2024-08-07] MEDS ORDERED: hydrALAZINE 20mg/ml inj. IV PRN (15:00)
[2024-08-07] MEDS: magnesium sulf-water 2g/50mL 50 ML IV ONE (15:19)
[2024-08-07] MEDS: thiamine 100mg/ml 2ml inj. IV ONE (15:19)
[2024-08-07 15:33] LABS: ETHANOL < 10 MG/DL (<10); SALICYLATE 0.9 MG/DL (4.0-20.0)
[2024-08-07] MEDS: LidoCAINE 2% Topical Jelly 11mL syringe (UROJET) TOP ONE (15:37)
[2024-08-07] MEDS: PERFLUTREN PROTEIN-A MICROSPHR (Optison) 0.22 MG/ML 3ML VIAL IV ONE (15:37)
[2024-08-07] MEDS: ringers solution, lacted 1,000 ML IV ONE (15:37)
[2024-08-07] MEDS: haloperidol lactate 5mg/ml inj IM ONE (15:37)
[2024-08-07] MEDS: LORazepam 2 mg/ml vial IV STA (19:40)
[2024-08-07] MEDS: heparin, porcine 5000 units/ml vial SQ SCH (20:00)
[2024-08-07] MEDS: docusate sod 100mg capsule PO SCH (20:00)
[2024-08-07 22:45] VITALS: BP 139/64; PULSE 98; RESP 16; O2SAT 96
[2024-08-08 00:29] LABS: TOTAL PROTEIN,URINE RANDOM 29.5 MG/DL; URINE AMPHETAMINE SCREEN NEGATIVE (Neg); URINE BARBITUATE SCREEN NEGATIVE (Neg); URINE BENZODIAZEPINES SCREEN POSITIVE (Neg); URINE CANNABINOID SCREEN NEGATIVE (Neg); URINE COCAINE SCREEN NEGATIVE (Neg); URINE METHADONE SCREEN NEGATIVE (Neg); URINE OPIATE SCREEN POSITIVE (Neg); URINE PHENCYCLIDINE SCREEN NEGATIVE (Neg)
[2024-08-08] MEDS: LORazepam 2 mg/ml vial ONE (00:41)
[2024-08-08] MEDS: metoprolol tartrate 1mg/ml inj IV PRN (00:48)
[2024-08-08] MEDS: diphenoxylate/atropine tablet (Lomotil) PO PRN (03:00)
[2024-08-08] MEDS: flecainide 50mg tablet PO SCH (03:00)
[2024-08-08] MEDS: HYDROcodone/acetaminophen 10/325mg tab PO PRN (03:01)
[2024-08-08] MEDS: LORazepam 2 mg/ml vial IV PRN (03:22)
[2024-08-08] MEDS: haloperidol lactate 5mg/ml inj IM ONE (04:59)
[2024-08-08 06:51] VITALS: BP 155/79; PULSE 89; RESP 15; TEMP 98.7; O2SAT 96
[2024-08-08 06:52] LABS: BASOPHILS % (AUTO) 0.4 % (0-1); EOSINOPHILS # (AUTO) 0.1 X10'3 (0-0.9); EOSINOPHILS % (AUTO) 0.6 % (0-6); HEMATOCRIT 37.8 % (42.0-52.0); HEMOGLOBIN 12.9 g/dl (14.0-17.9); LYMPHOCYTES # (AUTO) 0.7 X10'3 (1.1-4.8); LYMPHOCYTES % (AUTO) 7.6 % (21-51); MEAN CORPUSCULAR HEMOGLOBIN 35.1 PG (27.0-31.0); MEAN CORPUSCULAR HGB CONC 34.2 g/dL (33.0-36.5); MEAN CORPUSCULAR VOLUME 102.5 FL (78-98); MEAN PLATELET VOLUME 8.2 FL (7.4-10.4); MONOCYTES # (AUTO) 0.7 X10'3 (0-0.9); MONOCYTES % (AUTO) 6.9 % (2-12); NEUTROPHILS # (AUTO) 8.2 X10'3 (1.8-7.7); NEUTROPHILS % (AUTO) 84.5 % (42-75); PLATELET COUNT 191 X10'3 (140-440); RED BLOOD COUNT 3.68 X10'6 (4.70-6.10); RED CELL DISTRIBUTION WIDTH 14.1 % (11.5-14.5); WHITE BLOOD COUNT 9.7 X10'3 (4.5-11.0)
[2024-08-08 06:53] LABS: ALANINE AMINOTRANSFERASE 42 U/L (12-78); ALBUMIN 3.3 G/DL (3.4-5.0); ALBUMIN/GLOBULIN RATIO 1.1 (1.1-1.5); ALKALINE PHOSPHATASE 67 IU/L (46-116); ANION GAP 15 (8-16); ASPARTATE AMINO TRANSFERASE 65 U/L (10-37); BILIRUBIN,TOTAL 0.7 MG/DL (0.1-1.0); BLOOD UREA NITROGEN 26 MG/DL (7-18); BUN/CREATININE RATIO 14.9 (10.0-20.0); CALCIUM 8.5 MG/DL (8.5-10.1); CHLORIDE 110 MMOL/L (99-107); CREATININE 1.75 MG/DL (0.60-1.10); GLUCOSE 97 MG/DL (70-104); POTASSIUM 3.9 MMOL/L (3.5-5.1); SODIUM 141 MMOL/L (135-145); TOTAL CARBON DIOXIDE 16.4 MMOL/L (24-32); TOTAL PROTEIN 6.3 G/DL (6.4-8.2); eCRCL 31 ML/MIN; eGFR 38 ML/MIN
[2024-08-08] MEDS: losartan 50mg tablet PO SCH (07:19)
[2024-08-08] MEDS: HYDROchlorothiazide 12.5mg capsule PO SCH (07:20)
[2024-08-08] MEDS: thiamine 100mg tablet PO SCH (07:21)
[2024-08-08] MEDS: folic acid 1mg tablet PO SCH (07:21)
[2024-08-08] MEDS: levoFLOXACIN-Levaquin 750MG/D5 150 ML IV SCH (07:28)
[2024-08-08] MEDS: sodium bicarbonate 1meq/ml inj 150 ML in dextrose 5%-water 1,000 ML IV SCH (07:55)
[2024-08-08 08:00] VITALS: RESP 15; O2SAT 96
[2024-08-08 08:29] LABS: C DIFF ANTIGEN NEGATIVE (NEGATIVE); C DIFF SPECIMEN=DIARRHEA? ACCEPTABLE; C DIFFICILE TOXINS A&B NEGATIVE (Neg)
[2024-08-08] MEDS: CefTRIAXone/D5W-Rocephin 1gm 50 ML IV SCH (09:15)
[2024-08-08 10:15] VITALS: BP 163/87; PULSE 96; RESP 18; TEMP 98.7; O2SAT 96
[2024-08-08] MEDS: azithromycin/NS 500mg/250ml 250 ML IV SCH (11:08)
[2024-08-08 18:30] VITALS: BP 176/75; PULSE 91; RESP 19; TEMP 97.8; O2SAT 98
[2024-08-08] MEDS: traZODone 50mg tablet PO SCH (20:20)
[2024-08-08 22:00] VITALS: BP 161/87; PULSE 92; RESP 18; TEMP 98.6; O2SAT 96
[2024-08-09 06:00] VITALS: BP 160/74; PULSE 90; RESP 18; TEMP 98.2; O2SAT 97
[2024-08-09 07:15] LABS: BASOPHILS % (AUTO) 0.2 % (0-1); EOSINOPHILS # (AUTO) 0.1 X10'3 (0-0.9); EOSINOPHILS % (AUTO) 0.7 % (0-6); HEMATOCRIT 36.6 % (42.0-52.0); HEMOGLOBIN 12.6 g/dl (14.0-17.9); LYMPHOCYTES # (AUTO) 1.1 X10'3 (1.1-4.8); MEAN CORPUSCULAR HEMOGLOBIN 34.6 PG (27.0-31.0); MEAN CORPUSCULAR HGB CONC 34.4 g/dL (33.0-36.5); MEAN CORPUSCULAR VOLUME 100.7 FL (78-98); MEAN PLATELET VOLUME 7.9 FL (7.4-10.4); MONOCYTES % (AUTO) 10.3 % (2-12); NEUTROPHILS # (AUTO) 7.4 X10'3 (1.8-7.7); NEUTROPHILS % (AUTO) 76.8 % (42-75); PLATELET COUNT 189 X10'3 (140-440); RED BLOOD COUNT 3.64 X10'6 (4.70-6.10); RED CELL DISTRIBUTION WIDTH 13.9 % (11.5-14.5); WHITE BLOOD COUNT 9.6 X10'3 (4.5-11.0)
[2024-08-09 07:34] LABS: ALANINE AMINOTRANSFERASE 44 U/L (12-78); ALBUMIN 3.1 G/DL (3.4-5.0); ALKALINE PHOSPHATASE 60 IU/L (46-116); ANION GAP 11 (8-16); ASPARTATE AMINO TRANSFERASE 55 U/L (10-37); BILIRUBIN,TOTAL 0.9 MG/DL (0.1-1.0); BLOOD UREA NITROGEN 15 MG/DL (7-18); BUN/CREATININE RATIO 10.9 (10.0-20.0); CALCIUM 8.3 MG/DL (8.5-10.1); CHLORIDE 101 MMOL/L (99-107); CREATININE 1.37 MG/DL (0.60-1.10); GLUCOSE 117 MG/DL (70-104); SODIUM 136 MMOL/L (135-145); TOTAL CARBON DIOXIDE 23.9 MMOL/L (24-32); TOTAL PROTEIN 6.2 G/DL (6.4-8.2); eCRCL 39 ML/MIN; eGFR 50 ML/MIN
[2024-08-09 07:53] LABS: POTASSIUM 2.9 MMOL/L (3.5-5.1)
[2024-08-09 10:00] VITALS: BP 143/70; PULSE 94; RESP 16; TEMP 99; O2SAT 96
[2024-08-09 18:30] VITALS: BP 159/80; PULSE 65; RESP 16; TEMP 98.1; O2SAT 97
[2024-08-09] MEDS: predniSONE 1 mg tablet PO SCH (20:17)
[2024-08-09] MEDS: pantoprazole 40mg Tablet.DR PO SCH (20:17)
[2024-08-09] MEDS ORDERED: magnesium sulf-water 4G/100mL 100 ML IV PRN (20:55)
[2024-08-09] MEDS ORDERED: magnesium sulf-water 2g/50mL 50 ML IV PRN (20:55)
[2024-08-09] MEDS ORDERED: potassium Cl 40MEQ/1/2NS 520ml 520 ML IV PRN (20:55)
[2024-08-09] MEDS ORDERED: potassium Cl 20 mEq SR tablet PO PRN (20:55)
[2024-08-09] MEDS: LORazepam 1 MG tablet PO PRN (21:40)
[2024-08-09] MEDS: potassium Cl 20 mEq SR tablet PO PRN (21:40)
[2024-08-09 22:00] VITALS: BP 169/84; PULSE 98; RESP 18; TEMP 99.2; O2SAT 96
[2024-08-10] VITALS (7 sets, daily range): BP systolic 126–175; BP diastolic 69–86; PULSE 89–109; RESP 13–20; TEMP 98.1–98.8; O2SAT 93–98
[2024-08-10 06:53] LABS: BASOPHILS % (AUTO) 0.4 % (0-1); EOSINOPHILS # (AUTO) 0.1 X10'3 (0-0.9); EOSINOPHILS % (AUTO) 1.2 % (0-6); HEMATOCRIT 38.8 % (42.0-52.0); HEMOGLOBIN 13.2 g/dl (14.0-17.9); LYMPHOCYTES # (AUTO) 1.4 X10'3 (1.1-4.8); LYMPHOCYTES % (AUTO) 12.9 % (21-51); MEAN CORPUSCULAR HEMOGLOBIN 34.2 PG (27.0-31.0); MEAN CORPUSCULAR VOLUME 100.8 FL (78-98); MEAN PLATELET VOLUME 7.7 FL (7.4-10.4); MONOCYTES # (AUTO) 1.1 X10'3 (0-0.9); MONOCYTES % (AUTO) 10.4 % (2-12); NEUTROPHILS # (AUTO) 7.8 X10'3 (1.8-7.7); NEUTROPHILS % (AUTO) 75.1 % (42-75); PLATELET COUNT 197 X10'3 (140-440); RED BLOOD COUNT 3.84 X10'6 (4.70-6.10); RED CELL DISTRIBUTION WIDTH 13.9 % (11.5-14.5); WHITE BLOOD COUNT 10.4 X10'3 (4.5-11.0)
[2024-08-10 07:25] LABS: ALANINE AMINOTRANSFERASE 56 U/L (12-78); ALBUMIN 3.2 G/DL (3.4-5.0); ALKALINE PHOSPHATASE 63 IU/L (46-116); ANION GAP 10 (8-16); ASPARTATE AMINO TRANSFERASE 61 U/L (10-37); BILIRUBIN,TOTAL 0.7 MG/DL (0.1-1.0); BLOOD UREA NITROGEN 12 MG/DL (7-18); BUN/CREATININE RATIO 9.2 (10.0-20.0); CALCIUM 8.4 MG/DL (8.5-10.1); CHLORIDE 101 MMOL/L (99-107); GLUCOSE 105 MG/DL (70-104); MAGNESIUM 1.5 MG/DL (1.5-2.4); POTASSIUM 4.1 MMOL/L (3.5-5.1); SODIUM 137 MMOL/L (135-145); TOTAL CARBON DIOXIDE 25.9 MMOL/L (24-32); TOTAL PROTEIN 6.4 G/DL (6.4-8.2); eCRCL 41 ML/MIN; eGFR 53 ML/MIN
[2024-08-10] MEDS: K and/or MAG REPLACEMENT MC SCH (08:00)
[2024-08-10] MEDS ORDERED: levetiracetam inj 1,000 MG in normal saline 100ml IV soln 100 ML IV ONE (15:50)
[2024-08-10] MEDS ORDERED: diazepam inj 5 MG/ML inj. IV PRN (15:55)
[2024-08-10] MEDS: levetiracetam-NACL1000mg/100ml 100 ML IV ONE (18:09)
[2024-08-10] MEDS ORDERED: hydrALAZINE 20mg/ml inj. IV PRN (19:35)
[2024-08-10] MEDS: levetiracetam-NACL1000mg/100ml 100 ML IV SCH (20:06)
[2024-08-11 06:00] VITALS: BP 161/73; PULSE 79; RESP 18; TEMP 98.7; O2SAT 94
[2024-08-11 06:09] LABS: BASOPHILS % (AUTO) 0.5 % (0-1); EOSINOPHILS # (AUTO) 0.2 X10'3 (0-0.9); EOSINOPHILS % (AUTO) 2.8 % (0-6); HEMATOCRIT 35.8 % (42.0-52.0); HEMOGLOBIN 12.2 g/dl (14.0-17.9); LYMPHOCYTES # (AUTO) 1.4 X10'3 (1.1-4.8); LYMPHOCYTES % (AUTO) 17.5 % (21-51); MEAN CORPUSCULAR HEMOGLOBIN 34.5 PG (27.0-31.0); MEAN CORPUSCULAR HGB CONC 34.1 g/dL (33.0-36.5); MEAN PLATELET VOLUME 8.4 FL (7.4-10.4); MONOCYTES # (AUTO) 0.8 X10'3 (0-0.9); MONOCYTES % (AUTO) 10.4 % (2-12); NEUTROPHILS # (AUTO) 5.3 X10'3 (1.8-7.7); NEUTROPHILS % (AUTO) 68.8 % (42-75); PLATELET COUNT 181 X10'3 (140-440); RED BLOOD COUNT 3.55 X10'6 (4.70-6.10); RED CELL DISTRIBUTION WIDTH 13.7 % (11.5-14.5); WHITE BLOOD COUNT 7.7 X10'3 (4.5-11.0)
[2024-08-11 06:31] LABS: ALANINE AMINOTRANSFERASE 71 U/L (12-78); ALBUMIN 3.1 G/DL (3.4-5.0); ALBUMIN/GLOBULIN RATIO 1.1 (1.1-1.5); ALKALINE PHOSPHATASE 61 IU/L (46-116); ANION GAP 8 (8-16); ASPARTATE AMINO TRANSFERASE 60 U/L (10-37); BILIRUBIN,TOTAL 0.7 MG/DL (0.1-1.0); BLOOD UREA NITROGEN 14 MG/DL (7-18); BUN/CREATININE RATIO 12.4 (10.0-20.0); CALCIUM 8.4 MG/DL (8.5-10.1); CHLORIDE 99 MMOL/L (99-107); CREATININE 1.13 MG/DL (0.60-1.10); GLUCOSE 87 MG/DL (70-104); MAGNESIUM 1.3 MG/DL (1.5-2.4); POTASSIUM 3.4 MMOL/L (3.5-5.1); SODIUM 130 MMOL/L (135-145); TOTAL CARBON DIOXIDE 23.2 MMOL/L (24-32); TOTAL PROTEIN 5.9 G/DL (6.4-8.2); eCRCL 47 ML/MIN; eGFR 63 ML/MIN
[2024-08-11 08:45] VITALS: RESP 16
[2024-08-11] MEDS: azithromycin 250mg tablet PO SCH (09:48)
[2024-08-11 10:00] VITALS: BP 136/66; PULSE 82; RESP 18; TEMP 98.7; O2SAT 96
[2024-08-11 10:22] VITALS: BP_SYST 142; PULSE 64
[2024-08-11] MEDS: chloestyramine/aspartame 4gm packet PO SCH (11:30)
[2024-08-11] MEDS: LORazepam 1 MG tablet PO ONE (12:52)
[2024-08-11] MEDS ORDERED: LEVE500T PO (16:42)
[2024-08-11] MEDS ORDERED: POTA-207 PO (16:45)
== END 2024-08-11 16:18 | disposition home or self-care (01) | DRG 177 ==
LOC: ER 09:51 → ED HOLD 13:30 → ORTHO 4S 22:18
PROVIDERS: ADMIT Nurse Practitioner Family; ATTEND Nurse Practitioner Family
PROC: 4A10X4Z Monitoring of Central Nervous Electrical Activity, External Approach (ICD-10-PCS; principal; 2024-08-11)
DX: J69.0 Pneumonitis due to inhalation of food and vomit (principal); G92.8 Other toxic encephalopathy; N17.0 Acute kidney failure with tubular necrosis; G83.4 Cauda equina syndrome; E87.20 Acidosis, unspecified; I48.20 Chronic atrial fibrillation, unspecified; E87.6 Hypokalemia; Z20.822 Contact with and (suspected) exposure to COVID-19; I10 Essential (primary) hypertension; E86.0 Dehydration; E83.42 Hypomagnesemia; D53.9 Nutritional anemia, unspecified; I48.0 Paroxysmal atrial fibrillation; G40.409 Other generalized epilepsy and epileptic syndromes, not intractable, without status epilepticus; Z79.4 Long term (current) use of insulin; Z88.5 Allergy status to narcotic agent; Z79.899 Other long term (current) drug therapy; Z87.891 Personal history of nicotine dependence; Z88.0 Allergy status to penicillin; Z88.1 Allergy status to other antibiotic agents
CPT/HCPCS: 36415; 70450; 70551; 71045; 71250; 72148; 74176; 80053; 80305; 80320; 80329; 81001; 82436; 82570; 82948; 83605; 83735; 84133; 84145; 84156; 84300; 84484; 84540; 85025; 87040; 87081; 87324; 87449; 87502; 87503; 87811; 92508; 92616; 93005; 93306; 95813; 97116; 97161; 97530; 99285; A4314; A5200; A6250; A6258; C1758; G0378; J0456; J0696; J1630; J1644; J1953; J1956; J2060; J3411; J3490; J7030; J7070; J7120; J7512

== ENCOUNTER → 2024-12-04 | Outpatient (CLI) | payer MEDICARE, OTHER ==
[~2024-12-04] MED LIST changes: +LEVE500T PO; +POTA-207 PO
[2024-12-04 12:21] LABS: BASOPHILS % (AUTO) 0.4 % (0-1); EOSINOPHILS # (AUTO) 0.2 X10'3 (0-0.9); EOSINOPHILS % (AUTO) 3.3 % (0-6); HEMATOCRIT 36.6 % (42.0-52.0); HEMOGLOBIN 12.1 g/dl (14.0-17.9); LYMPHOCYTES % (AUTO) 15.3 % (21-51); MEAN CORPUSCULAR HEMOGLOBIN 34.4 PG (27.0-31.0); MEAN CORPUSCULAR VOLUME 104.1 FL (78-98); MEAN PLATELET VOLUME 7.5 FL (7.4-10.4); MONOCYTES # (AUTO) 0.6 X10'3 (0-0.9); NEUTROPHILS # (AUTO) 4.7 X10'3 (1.8-7.7); PLATELET COUNT 206 X10'3 (140-440); RED BLOOD COUNT 3.51 X10'6 (4.70-6.10); RED CELL DISTRIBUTION WIDTH 14.5 % (11.5-14.5); WHITE BLOOD COUNT 6.5 X10'3 (4.5-11.0)
[2024-12-04 12:36] LABS: ALANINE AMINOTRANSFERASE 85 U/L (12-78); ALBUMIN 4.2 G/DL (3.4-5.0); ALBUMIN/GLOBULIN RATIO 1.3 (1.1-1.5); ALKALINE PHOSPHATASE 106 IU/L (46-116); ASPARTATE AMINO TRANSFERASE 41 U/L (10-37); BILIRUBIN,TOTAL 0.4 MG/DL (0.1-1.0); BLOOD UREA NITROGEN 48 MG/DL (7-18); BUN/CREATININE RATIO 18.8 (10.0-20.0); CALCIUM 8.9 MG/DL (8.5-10.1); CREATININE 2.56 MG/DL (0.60-1.10); GLUCOSE 102 MG/DL (70-104); TOTAL PROTEIN 7.5 G/DL (6.4-8.2); eGFR 24 ML/MIN
[2024-12-04 12:39] LABS: ANION GAP 16 (8-16); CHLORIDE 111 MMOL/L (99-107); POTASSIUM 4.4 MMOL/L (3.5-5.1); SODIUM 137 MMOL/L (135-145)
[2024-12-04 13:03] LABS: TOTAL CARBON DIOXIDE 10.2 MMOL/L (24-32)
== END | disposition home or self-care (01) ==
LOC: RAD 11:48
PROVIDERS: ATTEND Family Medicine
DX: A41.9 Sepsis, unspecified organism (principal); M01.X61 Direct infection of right knee in infectious and parasitic diseases classified elsewhere; R50.9 Fever, unspecified
CPT/HCPCS: 36415; 80053; 85025; 85651

== ENCOUNTER 2025-03-06 09:42 | Emergency (ER) | payer MEDICARE, OTHER ==
[~2025-03-06] VITALS: Ht 175.3 cm; Wt 62.7 kg
[~2025-03-06 09:42] MED LIST changes: -ALBU8.5H17 INH; -FURO40TA4 PO; -LEVE500T PO; +LOSA50TA64 PO; -OLME-29 PO; -POTA-207 PO; +POTA10CA95 PO; -[UNRECOGNIZED DRUG - OTHER] TOP
[2025-03-06 09:49] VITALS: BP 142/69
--- NOTE | 2025-03-06 10:23 | RADIOLOGY REPORT ---
EXAM: DI KNEE, COMP 4 VW MIN HISTORY: RIGHT KNEE PAIN COMPARISON: None TECHNIQUE: Four views of the right knee were performed. FINDINGS: No fracture or significant degenerative changes are identified about the right knee. No lateral lott lar tilt or subluxation on the sunrise view. Probable moderate joint effusion. IMPRESSION: 1. No acute fracture or significant joint space narrowing of the right knee. 2. Probable moderate right knee effusion. If internal derangement is suspected, consider follow-up n oncontrast MRI of the right knee for evaluation of the ligaments and menisci.
--- NOTE | 2025-03-06 10:38 | Physician Documentation ---
History of Present Illness ~ Chief Complaint: Knee Pain Stated Complaint: R KNEE PAIN Time Seen by MD: 09:56 Primary Medical Doctor: Dr. Zhou Source: patient, family Mode of Arrival: Ambulatory Exam Limitations: no limitations HPI 79-year-old male with chronic right knee pain is currently being evaluated for a knee replacement surgery and pain management. States that he is having to see a provider in [facility] for his knee pain. Patient takes 2 Benedict every 4 hours for pain but has been having pain increasing over the past few days. Patient has been without injury or falls. With some redness to the knee Tetanus witin 5 years: Yes Medication Reconciliation Allergies: Coded Allergies: duloxetine (Unverified Allergy, Severe, 02/13/25) pregabalin (Verified Allergy, Intermediate, PULMARY EDEMA, 02/13/25) Penicillins (Verified Allergy, Mild, RASH, 02/13/25) Patient reported swelling and shortness of breath when he took PCN as a child; however, he and his state that he has tolerated PCN in the past. Tolerating Ancef during hospital stay 03/24. tetracycline (Verified Allergy, Mild, RASH, 02/13/25) adhesive tape (Verified Allergy, Unknown, BLISTERS, 02/13/25) celecoxib (Verified Allergy, Unknown, DIARRHEA, 02/13/25) codeine (Verified Allergy, Unknown, 01/01/22) piroxicam (Verified Allergy, Unknown, 01/01/22) Scheduled Diphenoxylate HCl/Atropine (Lomotil 2.5-0.025 mg Tablet), 2 TAB PO Q6H, (Reported) Flecainide Acetate (Tambocor), 1 TAB PO Q12H, (Reported) Hydrocodone Bit/Acetaminophen (Benedict 10-325 Tablet), 1-2 TAB PO Q4HPRN, (Reported) Losartan Potassium (Losartan Potassium), 100 MG PO DAILY Omeprazole (Prilosec), 1 CAP PO BID, (Reported) Potassium Chloride* (Potassium Chloride*), 2 CAP PO DAILY, (Reported) Prednisone (predniSONE tablet), 1 TAB PO QID, (Reported) Testosterone Cypionate (TESTOSTERONE CYPIONATE 200mg/ml 10ml vial), ML IM MONTHLY, (Reported) Trazodone HCl (Trazodone HCl), 1 TAB PO HS, (Reported) Scheduled PRN Cholestyramine/Aspartame* (Prevalite Packet*), 1 PACKET PO BID PRN for diarrhea, (Reported) Lorazepam (Ativan), 1 TAB PO HS PRN for anxiety, (Reported) Past Medical History Past Medical History: Atrial Fibrillation, Hypertension, Hernia, Arthritis, Chronic Pain Past Surgical History: abdominal surgery, appendectomy, cholecystectomy, colectomy, orthopedic surgeries Other Past Surgical History: ablation, hernia repair Patient History: FH: heart disease No Family History of: (CABG) Coronary artery bypass grafting (CAD) Coronary arteriosclerosis (CHF) Congestive heart failure (COPD) Chronic obstructive lung disease (CVA) Cerebrovascular accident (Cancer) Malignant carcinoid tumor (DM Type 2) Diabetes mellitus type 2 (DM Type1) Diabetes mellitus type 1 (CT) Myocardial infarction (PVD) Peripheral vascular disease (TIA) Transient ischemic attack Alzheimer's disease Aortic aneurysm Asthma Cardiac arrest Alcohol Use: Occasionally Drug Use: none Lives with: Spouse, Family Lives In: Home Occupation: retired Review of Systems All Other Systems at this time: Reviewed and Negative Musculoskeletal: Reports: see HPI Physical Exam Vital Signs: RN Vital Signs have been reviewed: Yes, Temperature: 98.1, Source: Temporal, Heart Rate: 118, Respiratory Rate: 16, BP: 142/69, Pulse Oximetry: 94, Weight: 62.730 General Appearance: alert, WD/WN, no apparent distress Respiratory: lungs clear, normal breath sounds, no respiratory distress Chest: no accessory muscle use, chest non-tender Cardiovascular: normal peripheral pulses, regular rate, rhythm, no edema Knees: no evidence of injury, bone tenderness, joint effusion, limited ROM, pain, soft tissue tenderness Progress Results/Orders Results/Orders Orders - SLIME WILSON BLOW PIT OPERATOR Knee, Complete (03/06/25 10:04) Completed Orders - SLIME WILSON BLOW PIT OPERATOR Knee, Complete (03/06/25 10:04) Vital Signs 03/06/25 09:49 Temp 98.1 Pulse 118 Resp 16 B/P (MAP) 142/69 Pulse Ox 94 EKG/XRAY/CT/US/VASC/MRI Bone/Soft Tissue X-Ray (Ext.) : Additional Comment EXAM: DI KNEE, COMP 4 VW MIN HISTORY: RIGHT KNEE PAIN COMPARISON: None TECHNIQUE: Four views of the right knee were performed. FINDINGS: No fracture or significant degenerative changes are identified about the right knee. No lateral patellar tilt or subluxation on the sunrise view. Probable moderate joint effusion. IMPRESSION: 1. No acute fracture or significant joint space narrowing of the right knee. 2. Probable moderate right knee effusion. If internal derangement is suspected, consider follow-up noncontrast MRI of the right knee for evaluation of the ligaments and menisci. Medical Decision Making Findings Chronic pain is on opiate pain management currently sees primary care and is being worked up for Orthopedics in [place]. Patient is having increased pain and some redness without injury. We will treat for cellulitis as well as give Toradol for increased pain. Family member is a nurse and we will continue to monitor and follow up with primary care Departure Time of Disposition: 10:36 Disposition: 01 HOME / SELF CARE / HOMELESS Impression: Primary Impression: Knee pain Qualified Codes: M25.561 - Pain in right knee; G89.29 - Other chronic pain Additional Impressions: Effusion of knee Qualified Codes: M25.461 - Effusion, right knee Arthritis Cellulitis Qualified Codes: L03.115 - Cellulitis of right lower limb Condition: Stable Discharge Instructions: Arthritis Additional Instructions: With current pain regimen and add gabapentin to see if that can help as well as using the diclofenac cream even with a heating pad for 10 minutes a few times a day can even help with some of the pain follow up with primary care as well as the orthopedist for more permanent pain management Referrals: NO PRIMARY CARE PROVIDER (PCP) Prescriptions Cephalexin*Monohydrate* (Keflex*) 500 Mg Capsule 1 CAP PO Q8H for 10 Days, #30 CAP Prov: SLIME WILSON BLOW PIT OPERATOR 03/06/25 Gabapentin (Gabapentin) 100 Mg Capsule 1 CAP PO Q8H for 30 Days, #90 CAP 0 Refills Prov: SLIME WILSON NP 03/06/25 Lidocaine (Lidocaine) 5 % Adh..patch 1 PATCH TOP DAILY for 30 Days, #30 PATCH 0 Refills Prov: SLIME WILSON BLOW PIT OPERATOR 03/06/25 Education Educated: Patient Educated regarding: diagnosis, treatment, need for follow up Signature Scribe Signature: No scribe Attestation: The note accurately reflects work and decisions made by me.Slime BOWMAN 03/06/25 10:43 SLIME WILSON NP Mar 06, 2025 10:38
[2025-03-06 10:39] VITALS: PULSE 101; O2SAT 96
[2025-03-06] MEDS ORDERED: CEPH-585 PO (10:42)
[2025-03-06] MEDS ORDERED: GABA-530 PO (10:42)
[2025-03-06] MEDS ORDERED: LIDO700A47 TOP (10:42)
[2025-03-06 10:48] VITALS: RESP 16
[2025-03-06] MEDS: ketorolac trometh 15mg/ml vial 15 MG/ML ML IM ONE (10:48)
[2025-03-06 11:00] VITALS: TEMP 98.1
== END 2025-03-06 11:01 | disposition home or self-care (01) ==
LOC: ER 09:42
DX: L03.115 Cellulitis of right lower limb (principal); M25.461 Effusion, right knee; M13.861 Other specified arthritis, right knee; I10 Essential (primary) hypertension; I48.91 Unspecified atrial fibrillation; Z88.0 Allergy status to penicillin; Z88.1 Allergy status to other antibiotic agents; Z88.5 Allergy status to narcotic agent; Z88.8 Allergy status to other drugs, medicaments and biological substances; Z90.49 Acquired absence of other specified parts of digestive tract; Z98.890 Other specified postprocedural states
CPT/HCPCS: 73564; 96372; 99283; J1885

== ENCOUNTER 2025-06-04 10:52 | Outpatient (CLI) | payer MEDICARE, OTHER ==
[~2025-06-04 10:52] MED LIST changes: +GABA-530 PO; -OMEP40CA21 PO
--- NOTE | 2025-06-04 11:39 | RADIOLOGY REPORT ---
PROCEDURE: MR MRI C SPINE INDICATION: RADICULOPATHY, CERVICAL REGION EXAM DATE: 06/04/2025 11:05 AM COMPARISON: MR MRI LUMBAR SPINE on DOS: 08/08/24, MR MRI LUMBAR SPINE on DOS: 01/02/24, MRI THORACIC SPINE on DOS: 09/28/21 TECHNIQUE: MRI cervical spine without intravenous contrast. FINDINGS: Grade 1 anterolisthesis of the C4 on C5. Grade 1 retrolisthesis of C5 on C6. The vertebral body heights and marrow signal are within normal limits. The visualized posterior fossa and craniocervical junction are intact. There is no prevertebral soft tissue swelling. The visualized paraspinal soft tissues are otherwise unremarkable. Moderate to severe degenerative disc disease throughout the mid and lower cervical spine with disc height loss and disc desiccation. The following axial levels are detailed below: C2-C3: Mild diffuse posterior disc osteophyte complex indenting the anterior thecal sac. No central canal narrowing. No foraminal narrowing. C3-C4: Mild diffuse posterior disc osteophyte complex indenting the anterior thecal sac. Uncovertebral osteophyte on the left with facet arthropathy. The central canal is mildly narrowed measuring 8 mm AP. Moderate right foraminal narrowing. C4-C5: Mild diffuse posterior disc osteophyte complex indenting the anterior thecal sac. Central canal is mildly narrowed measuring 8 mm AP. Uncovertebral osteophyte on the left with facet arthropathy. Moderate left and mild right foraminal narrowing. C5-C6: Moderate diffuse posterior disc osteophyte complex indenting the anterior thecal sac. Central canal is mildly narrowed measuring 8 mm AP. Bilateral facet arthropathy and uncovertebral osteophytes. Moderate to severe left and moderate right foraminal narrowing. C6-C7: Mild diffuse posterior disc osteophyte complex indenting the anterior thecal sac. Bilateral uncovertebral osteophytes. Central canal is borderline narrowed measuring 10 mm AP. Mild bilateral foraminal narrowing. C7-T1: Unremarkable. IMPRESSION: Multilevel degenerative changes of the cervical spine as described above. Mild central canal narrowing at C3-C4, C4-C5, and C5-C Moderate to severe left and moderate right foraminal narrowing at C5-C
== END 2025-06-04 23:59 | disposition home or self-care (01) ==
LOC: MRI02 10:52
PROVIDERS: ATTEND Family Medicine
DX: M47.22 Other spondylosis with radiculopathy, cervical region (principal); M48.02 Spinal stenosis, cervical region; M25.78 Osteophyte, vertebrae
CPT/HCPCS: 72141